=== PATIENT | male | born 1960 | race Caucasian/White ===

== ENCOUNTER 2020-09-20 09:51 | Outpatient (CLI) | payer BC, SELFPAY ==
[2020-09-20 10:47] LABS: Anion Gap 8 mmol/L (8-16); Blood Urea Nitrogen 16 mg/dL (9-20); Carbon Dioxide 27 mmol/L (22-30); Chloride 100 mmol/L (98-107); Estimated Glomerular Filt Rate > 60; Glucose 359 mg/dL (75-110); Potassium 4.2 mmol/L (3.4-5.0); Sodium 135 mmol/L (137-145)
== END 2020-09-20 09:52 | disposition home or self-care (01) ==
LOC: ANHLAB 09:55
PROVIDERS: PCP Family Medicine; Visit Provider Family Medicine
DX: E11.65 Type 2 diabetes mellitus with hyperglycemia (principal)
CPT/HCPCS: 36415; 80048

== ENCOUNTER → 2021-07-31 07:27 | Outpatient (CLI) | payer BC, SELFPAY ==
[2021-07-31 17:06] LABS: SARS-CoV-2 RNA PCR Negative
== END ==
PROVIDERS: PCP Family Medicine; Visit Provider Nurse Practitioner Family
DX: Z20.822 Contact with and (suspected) exposure to COVID-19 (principal); R00.2 Palpitations; R06.02 Shortness of breath
CPT/HCPCS: C9803; U0003; U0005

== ENCOUNTER 2021-07-31 08:31 | Outpatient (CLI) | payer BC, SELFPAY ==
--- NOTE | ~2021-07-31 | XR_ITS ---
EXAMINATION: XR chest 2V 07/31/2021 09:05 INDICATION: Left-sided chest pain and shortness of breath PROCEDURE: 2 view chest COMPARISON: 02/19/2009 FINDINGS: The lungs are clear. The cardiomediastinal silhouette is within normal limits. There are no pleural effusions. There is no pneumothorax suspected. IMPRESSION: 1: NO ACUTE CARDIOPULMONARY DISEASE. Reviewed, dictated and finalized at location A.
--- NOTE | 2021-07-31 08:41 | ECG_ITS ---
Measurements Intervals [place] Rate: 85 P: 73 AL: 175 QRS: 64 QRSD: 128 T: -1 QT: 390 QTc: 466 Interpretive Statements SINUS RHYTHM RIGHT AXIS DEVIATION RIGHT BUNDLE BRANCH BLOCK BASELINE ARTIFACT- I, III, AVR, AVL, AVF ABNORMAL ECG Electronically Signed On 07-31-2021 9:20:10 CDT by Nando Kc D.O.
== END 2021-07-31 08:32 | disposition home or self-care (01) ==
LOC: ANHCARD 08:34
PROVIDERS: PCP Family Medicine; Visit Provider Nurse Practitioner Family
DX: R06.02 Shortness of breath (principal); R00.2 Palpitations; I45.10 Unspecified right bundle-branch block
CPT/HCPCS: 71046; 93005

== ENCOUNTER 2022-02-18 13:40 | Outpatient (CLI) | payer BC, SELFPAY ==
--- NOTE | ~2022-02-18 | US_ITS ---
EXAMINATION: US abdomen complete EXAM DATE: 02/18/2022 14:20 INDICATION: R10.9 - Unspecified abdominal pain . TECHNIQUE: Multiple grayscale and Doppler images of the complete abdomen were obtained (by a technolo gist who performed the scan) and subsequently reviewed. There is no prior study for comparison. FINDINGS: The proximal aspect of the aorta which is visualized is normal in caliber. Mid and distal portions po laci visualized. Visualized portion IVC is patent. Pancreas is obscured by bowel gas. There is echogenic liver parenchyma, hepatic steatosis. There are no focal liver lesions identified. There is no evidence of intrahepatic biliary duct dilation. Portal venous flow was seen in the he patopedal, normal direction and has normal Doppler waveform. Common bile duct measures 4 mm, which is normal. The gallbladder wall measures 3-4 mm in thickness, w hich is considered mildly thickened. There is a calcified 1.7 cm stone in the dependent aspect of the gallbladder. There may be several smaller stones. Gallbladder only has mild distention. No sonograph ic evidence of pericholecystic fluid. Technologist performing exam reports patient did not demonst rate sonographic Florian's sign. Please note that this sign is less reliable in patients who have rec eived pain medication. Right kidney: There is normal contour and echogenicity. It measures 12.4 x 4.7 x 6.4 centimeters. There are no focal renal lesions identified. There is no hydronephrosis. Left kidney: There is normal contour and echogenicity. It measures 13.3 x 4.7 x 6.5 centimeters. T here are no focal renal lesions identified. There is no hydronephrosis. The spleen measures 13.0 x 6.6 centimeters which is upper limits of normal in size. IMPRESSION: 1. Cholelithiasis. Mild gallbladder wall thickening which is nonspecific given no sonographic Florian 's sign was demonstrated. 2. Hepatic steatosis. 3. Spleen upper limits of normal in size. Reviewed, dictated and finalized at location B. IMPRESSION: 1. Cholelithiasis. Mild gallbladder wall thickening which is nonspecific given no sonographic Florian's sign was demonstrated. 2. Hepatic steatosis. 3. Spleen upper limits of normal in size.
== END 2022-02-18 13:41 | disposition home or self-care (01) ==
LOC: ANHIMG 13:44
PROVIDERS: PCP Family Medicine; Visit Provider Nurse Practitioner Family
DX: R10.9 Unspecified abdominal pain (principal); K80.20 Calculus of gallbladder without cholecystitis without obstruction; K76.0 Fatty (change of) liver, not elsewhere classified
CPT/HCPCS: 76700

== ENCOUNTER 2022-02-27 12:46 | Outpatient (CLI) | payer BC, SELFPAY ==
[2022-02-27 14:28] LABS: Lithium < 0.2 mmol/L (0.6-1.2)
== END 2022-02-27 12:47 | disposition home or self-care (01) ==
PROVIDERS: Anesthesiology; PCP Family Medicine; Visit Provider Surgery
DX: Z01.818 Encounter for other preprocedural examination (principal); K80.20 Calculus of gallbladder without cholecystitis without obstruction
CPT/HCPCS: 36415; 80178; 86850; 86900; 86901

== ENCOUNTER 2022-03-02 01:04 | Day surgery (SDC) | payer BC, SELFPAY ==
[2022-02-27 12:03] VITALS: BMI 39.0
--- NOTE | 2022-02-27 12:10 | PC.NURSE ---
Report to the Outpatient Waiting Room, entrance under the green pavilion located off [facility], at time __1200 on date _03/02/22 . OR Time: _1400 . - You and your visitor will be asked a series of questions to screen for COVID 19 for your protection. - A mask is required within the hospital. Preoperative COVID Testing Requirements: No COVID Test needed if: (proof is required; if not received patient will have Rapid Test prior to entry) - Patient has received COVID Vaccine at least 14 days prior to procedure date or - Patient has positive COVID test result within last 90 days of surgery date. COVID Test needed if above criteria is not met If not COVID vaccinated a COVID test must be conducted within 72 hours of surgery and patient is asked to isolate self from time of testing until procedure. You will go to the [facility] for your COVID testing. The [facility] site is located at the corner of [address] [facility]. You will only be called if COVID results are positive and your surgeon may reschedule your elective surgery date. Patients may have clear liquids (water, carbonated beverages, clear teas, apple juice) until 3 hours prior to surgery with a maximum of 20 ounces. - No food from midnight until time of surgery - Infants may have breast milk until 4 hours before surgery, formula 6 hours prior to surgery. - Children will be allowed to drink immediately following surgery. If applicable, please bring a bottle or sippy cup to assist with drinking. Juice, water, soda, and popsicles are readily available. For infants on formula, please bring formula the day of surgery. Pacifiers are allowed. Take the following medications with a SIP of water the morning of surgery: ____HALF OF MORNING INSULIN DOSES, PANTOPRAZOL, NEVIBILOL, BUPROPION, INHALER IF NEEDED Medications to discontinue per physician ASA Date to take last dose____02/27/22 Please no make-up, nail yakut, hairspray, perfume, deodorant, or body powder the day of surgery. No jewelry (including any body piercings) or valuables the day of surgery, leave them at home. Please take a shower or bath the night before, or the morning of, surgery with an antibacterial soap. Wear comfortable, loose fitting clothing. Children are encouraged to wear pajamas. - Jewelry must be removed prior to entering the operating room. Rings and piercings that are not removed may be cut off. - The hospital will not accept responsibility for valuables. - Please leave all valuables, including medications, at home the day of surgery. If you are going home after surgery, a licensed van driver helper must drive you home. - NO public transportation without another adult. - We recommend that an adult stay with you for 24 hours following discharge. - We also recommend that you do not drive, make important decision, drink alcoholic beverages, or take any drugs that were not prescribed by your health care provider for at least 24 hours after your discharge time. For Pediatric surgeries, we recommend two adults accompany the child home (only one inside the building at this time). One visitor will be allowed to accompany the patient into the hospital. Patients visitor will be instructed to remain with patient at all times or leave the building. We will allow the visitor to come back to the postoperative area when patient is ready. Follow any additional instructions given to you from your surgeon. Telephone instructions given to __PATIENT and asked if any additional questions and then verbalized understanding. Patient advised to call surgeon office or pre surgery nurse liaison [phone] if any additional questions.
[2022-03-02] VITALS (8 sets, daily range): BP systolic 140–157; BP diastolic 70–90; PULSE 60–79; RESP 15–17; TEMP 36.3–36.6; O2SAT 95–100
--- NOTE | 2022-03-02 12:47 | WPDANESEPPF ---
Anes - Initial Pre Proc Eval Procedure: Operation Date: 03/02/22 14:00 Proposed Procedures p Laparoscopic Cholecystectomy, Possible Open - Herminio Welch DO Date/Time: 03/02/22 12:47 Surgeon: Herminio Welch DO Pre Op Diagnosis: Symptomatic Cholelithiasis Patient Data Age: 61 Gender: M Height: 1.75 m Weight: 120 kg Allergies Allergy/AdvReac Type Severity Reaction Status Date / Time levofloxacin AdvReac Intermediate Itching Verified 03/02/22 13:22 Home Medications Medication Instructions Recorded Confirmed Type aspirin 81 mg tablet,delayed 81 mg PO DAILY 09/08/19 03/02/22 History release flash glucose scanning reader #1 each 12/12/19 03/02/22 Rx benazepril 10 1 tablet PO DAILY #90 tablet 04/07/21 03/02/22 Rx mg-hydrochlorothiazide 12.5 mg tablet pen needle, diabetic 32 gauge x #200 ea 05/18/21 03/02/22 Rx 1/4 flash glucose sensor #2 each 05/21/21 03/02/22 Rx bupropion HCl 300 mg 24 hr tablet, 300 mg PO QAM #1 tablet 05/26/21 03/02/22 Rx extended release vilazodone 40 mg tablet 40 mg PO DAILY #1 tablet 05/26/21 03/02/22 Rx insulin lispro 200 unit/mL (3 mL) 20 unit SUB-Q TID #3 ml 07/29/21 03/02/22 Rx subcutaneous pen albuterol sulfate 90 mcg/actuation 2 inh INHALATION Q4H PRN #6.7 g 10/16/21 03/02/22 Rx aerosol inhaler insulin glargine 100 unit/mL (3 65 unit SUB-Q DAILY #20 syr 10/24/21 03/02/22 Rx mL) subcutaneous pen nebivolol 5 mg tablet 5 mg PO DAILY #90 tablet 01/29/22 03/02/22 Rx pantoprazole 40 mg tablet,delayed 40 mg PO QAM 56 Days #56 tablet 02/18/22 03/02/22 Rx release semaglutide 1 mg/dose (4 mg/3 mL) 1 mg SUBCUT WEEKLY #9 ml 02/25/22 03/02/22 Rx subcutaneous pen injector lithium carbonate 300 mg PO HS 02/27/22 03/02/22 History rosuvastatin 20 mg PO DAILY 02/27/22 03/02/22 History hydrocodone-acetaminophen 1 tablet PO Q4H PRN #10 tablet 03/02/22 Rx Patient hx anesthesia problems: none Family hx anesthesia problems: none Results Review: All pre-operative results and documents have been reviewed as part of the pre-operative evaluation. [facility] Past Medical History Medical History BMI 38.0-38.9,adult BMI 39.0-39.9,adult BMI 40.0-44.9, adult Cataracts, both eyes Depression Hyperlipidemia Hypertension Morbid obesity Type 2 diabetes mellitus with other specified complication (Unknown) Surgical History Surgical History H/O cataract extraction H/O inguinal hernia repair H/O umbilical hernia repair Family History Family History Mother Family history of diabetes mellitus in first degree relative Family history of thyroid disease Hypertension Grandparent Family history of lung cancer Diabetes mellitus Family history of lung disease Family history of heart disease in male family member before age 55 Father Hypertension Alzheimers disease Sibling No problems noted. Social History Social History Smoking status: Never smoker Second hand tobacco smoke exposure: Yes Alcohol intake: never Substance use: never Substance use type: does not use Living arrangements: with family Additional occupation/education comments: [employer] Gender identity (if verbalized by the patient): Male Anes - Eval Final PreProcedure Day of Procedure 03/02/22 12:47 Patient weight: obese Heart: regular rate and rhythm Lungs: clear to auscultation and normal air movement Airway: Mallampati scale class II Neurological: alert and oriented Last oral intake: >/= 8 hours ASA classification: III Emergent: no Anesthetic plan: proceed Anesthesia type and monitoring: general ETT and standard monitoring Results Review: All pre-operative results and documents have been reviewed as part of the pr
[2022-03-02] MEDS: LACTATED RINGERS 1,000 ML 30 ML IV CONT ×2 (13:00→14:43)
[2022-03-02] MEDS: ACETAMINOPHEN 500 MG TABLET 1000 MG PO (13:00)
[2022-03-02] MEDS: KETOROLAC 15 MG/ML VIAL (*BKC) IV PUSH (13:17)
[2022-03-02 13:19] LABS: Glucose Point of Care 106 mg/dl (65-105)
--- NOTE | 2022-03-02 13:28 | WPDHPUPDATE1 ---
History and Physical Update Update Date/Time: 03/02/22 13:28 History and Physical has been reviewed, including an updated exam of the patient. There are NO changes in the patient's condition. Risks, benefits, and alternatives have been discussed and questions answered. Patient agrees to proceed with procedure.
[2022-03-02] MEDS: ceFAZolin 3 GM/D5W 100 ML 100 ML IVPB (13:40)
--- NOTE | 2022-03-02 14:36 | W.PM.PROC2 ---
Procedure Note - Detailed Date of Procedure 03/02/22 Pre-op Diagnosis Symptomatic Cholelithiasis Post-op Diagnosis Same Procedure Performed Laparoscopic Cholecystectomy Surgeon Herminio Welch, DO Anesthesia General and Local (0.5% bupivacaine) Indications This is a 61-year-old man who presented with right upper quadrant abdominal pain nausea and vomiting for the past 3 weeks. The patient's symptoms were somewhat mild at 1st, but now he states he has symptoms after he eats anything. He had a gallbladder ultrasound which showed evidence of cholelithiasis with mild gallbladder wall thickening. Discussions were made with the patient about treatment options and decision was made to proceed with laparoscopic cholecystectomy, possible open. Findings Laparoscopic cholecystectomy was performed. The gallbladder had a small gallstone within it, but there was no evidence of pericholecystic adhesions. There was some fatty infiltration around the gallbladder wall but no significant gallbladder wall thickening. The cystic duct appeared normal in size. The gallbladder was removed and sent to the lab for pathology. Description of Procedure Procedure as well as risks, benefits, and alternatives were discussed with patient. Written consent was obtained and placed in chart prior to procedure. The patient was brought back to surgical suite. Patient was placed in supine position on operating table. Time-out was done to confirm patient and procedure. Patient was then intubated by the anesthesia department. Abdomen was prepped and draped in sterile fashion using chlorhexidine prep. 0.5% bupivacaine with epinephrine was infiltrated at each site of incision. 5 mm incision was made in the left upper quadrant and a 5 mm Optiview trocar was advanced through the abdominal layers under direct visualization. Once inside the abdominal cavity, carbon dioxide insufflation was used to created pneumoperitoneum. The camera was inserted the abdomen was inspected. No significant adhesions were identified in the supraumbilical region where a a port could be placed safely. A 5 millimeter incision was made superior to the umbilicus, and a 5 millimeter trocar was placed under direct visualization. The patient was placed in reverse Trendelenburg position and rotated slightly to the left. An 11 millimeter incision was made in the subxiphoid region, and an 11 millimeter trocar was inserted under direct visualization. Two 5 millimeter incisions were made in the right upper quadrant, and two 5 millimeter trocars were inserted under direct visualization. The gallbladder was identified and grasped at the fundus and retracted superiorly. It was then grasped at the infundibulum retracted laterally. Careful dissection around the neck of the gallbladder was performed using blunt dissection with a [place] grasper and hook electrocautery. The cystic duct was identified, and a window was created behind it. The cystic artery was also identified and a window was created behind it. The critical view of safety was identified, visualizing the cystic duct running directly into the neck of the gallbladder, and the cystic artery running directly into the wall of the gallbladder. A 5 millimeter clip filter plant operator was then used to place 2 clips proximally and 1 clip distally on both the cystic duct and cystic artery. They were then both transected using endoscopic scissors. Once safely away from the meño hepatitis, the gallbladder was dissected free from the liver bed using hook electrocautery. Hemostasis was achieved along the way. The gallbladder was removed completely and then removed through the subxiphoid port. The liver bed was then inspected. Hemostasis appeared adequate, and our clips appeared secure. The area was gently irrigated with sterile saline. No other abnormalities were seen. The patient was flattened out in bed, and 1 final inspection was made around the abdominal cavity. The subxiphoid por
[2022-03-02 14:54] LABS: Glucose Point of Care 126 mg/dl (65-105)
[2022-03-02] MEDS: ONDANSETRON INJ 4 MG/2 ML VIAL IV PUSH (14:59)
[2022-03-02] MEDS: SCOPOLAMINE 1.5 MG PATCH TRANSDERM (15:44)
[2022-03-02] MEDS: diphenhydrAMINE HCl INJ 50 MG/ML VIAL 25 MG IV PUSH (15:44)
== END 2022-03-02 16:59 | disposition home or self-care (01) ==
PROVIDERS: PCP Family Medicine; Visit Provider Surgery
PROC: 0FT44ZZ Resection of Gallbladder, Percutaneous Endoscopic Approach (ICD-10-PCS; CPT 47562; principal; 2022-03-02 14:00)
DX: K80.10 Calculus of gallbladder with chronic cholecystitis without obstruction (principal); R11.0 Nausea; R10.9 Unspecified abdominal pain; K76.0 Fatty (change of) liver, not elsewhere classified; F32.9 Major depressive disorder, single episode, unspecified; E78.5 Hyperlipidemia, unspecified; I10 Essential (primary) hypertension; E11.8 Type 2 diabetes mellitus with unspecified complications; Z79.4 Long term (current) use of insulin; Z79.82 Long term (current) use of aspirin; Z79.51 Long term (current) use of inhaled steroids; E66.9 Obesity, unspecified; Z68.37 Body mass index [BMI] 37.0-37.9, adult
CPT/HCPCS: 47562; 36415; 80178; 82948; 86850; 86900; 86901; 88304; A9270; J0690; J1100; J1200; J1885; J2405; J2704; J2710; J3010; J7030; J7120

== ENCOUNTER 2022-04-24 04:46 | Day surgery (SDC) | payer BC, SELFPAY ==
[2022-04-13 13:18] VITALS: BMI 38.4
--- NOTE | 2022-04-24 10:26 | WPDANESEPPF ---
Anes - Initial Pre Proc Eval Procedure: Operation Date: 04/24/22 13:00 Proposed Procedures p Screening Colonoscopy - Blake Heller MD Date/Time: 04/24/22 10:26 Surgeon: Blake Heller MD Pre Op Diagnosis: neoplasm screening Patient Data Age: 61 Gender: M Height: 1.75 m Weight: 118 kg Allergies Allergy/AdvReac Type Severity Reaction Status Date / Time levofloxacin AdvReac Intermediate Itching Verified 04/24/22 11:31 Home Medications Medication Instructions Recorded Confirmed Type aspirin 81 mg tablet,delayed 81 mg PO DAILY 09/08/19 04/13/22 History release (Adult Low Dose Aspirin) flash glucose scanning reader #1 ea 12/12/19 04/13/22 Rx (FreeStyle Leandro 14 Day [place]) benazepril 10 1 tablet PO DAILY #90 tabs 04/07/21 04/13/22 Rx mg-hydrochlorothiazide 12.5 mg tablet pen needle, diabetic 32 gauge x #200 ea 05/18/21 04/13/22 Rx 1/4 (BD Ultra-Fine Micro Pen Needle) bupropion HCl 300 mg 24 hr tablet, 300 mg PO QAM #1 tablet 05/26/21 04/13/22 Rx extended release (Wellbutrin XL) vilazodone 40 mg tablet (Viibryd) 40 mg PO DAILY #1 tablet 05/26/21 04/13/22 Rx nebivolol 5 mg tablet (Bystolic) 5 mg PO DAILY #90 tabs 01/29/22 04/13/22 Rx semaglutide 1 mg/dose (4 mg/3 mL) 1 mg (0.75 mL) subcut WEEKLY #9 mL 02/25/22 04/13/22 Rx subcutaneous pen injector (Ozempic) lithium carbonate 300 mg capsule 300 mg PO HS 02/27/22 04/13/22 History rosuvastatin 20 mg tablet 20 mg PO DAILY 02/27/22 04/13/22 History albuterol sulfate 90 mcg/actuation See Rx Instructions .Route 03/23/22 04/13/22 Rx aerosol inhaler .COMPLEX #51 grams pantoprazole 40 mg tablet,delayed 40 mg PO BID 8 weeks #112 tabs 03/30/22 04/13/22 Rx release flash glucose sensor (FreeStyle #2 ea 04/06/22 04/13/22 Rx Leandro 14 Day Sensor kit) sodium sul 1.479 gram-potas ch See Rx Instructions PO PER PKG DIR 04/10/22 04/13/22 Rx 0.188 gram-magnes sul 0.225 gram #24 tabs tablet (Sutab) insulin glargine 100 unit/mL (3 65 unit subcut BID 04/13/22 04/13/22 History mL) subcutaneous pen (Basaglar KwikPen U-100 Insulin) Patient hx anesthesia problems: none Family hx anesthesia problems: none Results Review: All pre-operative results and documents have been reviewed as part of the pre-operative evaluation. [facility] Past Medical History Medical History (Updated 04/24/22 @ 10:28 by Torey Michaels MD) BMI 38.0-38.9,adult BMI 39.0-39.9,adult BMI 40.0-44.9, adult Cataracts, both eyes Chronic GERD Depression H/O supraventricular tachycardia Hyperlipidemia Hypertension Morbid obesity Nausea CLIFF (obstructive sleep apnea) Type 2 diabetes mellitus with other specified complication (Unknown) Ulcer Surgical History Surgical History H/O cataract extraction H/O inguinal hernia repair H/O umbilical hernia repair Family History Family History Mother Family history of diabetes mellitus in first degree relative Family history of thyroid disease Hypertension Grandparent Family history of lung cancer Diabetes mellitus Family history of lung disease Family history of heart disease in male family member before age 55 Father Hypertension Alzheimers disease Sibling No problems noted. Social History Social History Smoking status: Never smoker Second hand tobacco smoke exposure: Yes Alcohol intake: never Substance use: never Substance use type: does not use Living arrangements: with family Additional occupation/education comments: [employer] Gender identity (if verbalized by the patient): Male Spiritual care concerns: No Anes - Eval Final PreProcedure Day of Procedure 04/24/22 10:26 Patient weight: obese Heart: regular rate and rhythm Lungs: clear to auscultation and normal air mo
[2022-04-24 11:32] VITALS: BP 144/73; PULSE 82; RESP 20; TEMP 36.4; O2SAT 98
[2022-04-24 11:44] LABS: Glucose Point of Care 221 mg/dl (65-105)
--- NOTE | 2022-04-24 11:53 | WPDHPUPDATE1 ---
History and Physical Update Update Date/Time: 04/24/22 11:53 History and Physical has been reviewed, including an updated exam of the patient. There are NO changes in the patient's condition. Risks, benefits, and alternatives have been discussed and questions answered. Patient agrees to proceed with procedure.
[2022-04-24] MEDS: LACTATED RINGERS 1,000 ML 150 ML IV CONT (12:30)
[2022-04-24 13:05] VITALS: BP 128/65; PULSE 77; RESP 20; O2SAT 97
[2022-04-24 13:15] VITALS: BP 136/78; PULSE 70; RESP 21; O2SAT 97
[2022-04-24 13:25] VITALS: BP 142/92; PULSE 72; RESP 21; O2SAT 98
== END 2022-04-24 13:45 | disposition home or self-care (01) ==
PROVIDERS: PCP Family Medicine; Visit Provider Internal Medicine Gastroenterology
PROC: 0DJD8ZZ Inspection of Lower Intestinal Tract, Via Natural or Artificial Opening Endoscopic (ICD-10-PCS; CPT 45378; principal; 2022-04-24 13:00)
DX: Z12.11 Encounter for screening for malignant neoplasm of colon (principal); D12.2 Benign neoplasm of ascending colon; K64.8 Other hemorrhoids; K57.30 Diverticulosis of large intestine without perforation or abscess without bleeding; R19.7 Diarrhea, unspecified; I10 Essential (primary) hypertension; E78.5 Hyperlipidemia, unspecified; E11.9 Type 2 diabetes mellitus without complications; G47.33 Obstructive sleep apnea (adult) (pediatric); K21.9 Gastro-esophageal reflux disease without esophagitis; F32.A Depression, unspecified; E66.9 Obesity, unspecified; Z68.37 Body mass index [BMI] 37.0-37.9, adult; Z79.82 Long term (current) use of aspirin; Z79.899 Other long term (current) drug therapy; Z79.51 Long term (current) use of inhaled steroids; Z79.4 Long term (current) use of insulin
CPT/HCPCS: 45385; 45380; 82948; 88305; J2704; J7120

== ENCOUNTER 2022-09-03 13:17 | Outpatient (CLI) | payer BC, SELFPAY ==
--- NOTE | ~2022-09-03 | US_ITS ---
US abdomen complete EXAMINATION: US Abdomen Complete INDICATION: Abdomen pain. PROCEDURE: Realtime High Resolution abdomen ultrasound. COMPARISON: Ultrasound dated 02/18/2022 FINDINGS: Gallbladder is surgically absent. Common bile duct measures 5 mm. Liver echotexture liver echotexture is increased, consistent with fatty infiltration.. Liver is enlar ged. Pancreas is not well visualized due to bowel gas. Pancreatic tail is obscured by bowel gas. Spl een is unremarkeable. Renal echotexture is within normal limits bilaterally without hydronephrosis, c ontour deforming mass or renal stone. Right kidney measures 12.5 cm. Left kidney measures 13.4 cm. Visualized aspects of the aorta and IVC are within normal limits. Portal vein is patent. No sonograph ic Florian's sign indicated by the technologist. IMPRESSION: 1: Hepatomegaly with fatty infiltration of the liver. Reviewed, dictated and finalized at location B.
[2022-09-03 12:42] LABS: Basophils Absolute Auto 0.1 K/mm3 (0.0-0.1); Basophils Percent Auto 0.7 % (0.2-1.2); Eosinophils Absolute Auto 0.3 K/mm3 (0-0.3); Eosinophils Percent Auto 3.9 % (0-4.4); Hematocrit 46.4 % (42.0-52.0); Hemoglobin 15.6 g/dL (14.0-18.0); Immature Granulocyte Absolute 0.02 K/mm3 (0.00-0.031); Immature Granulocyte Percent A 0.2 % (0-0.5); Lymphocytes Absolute Auto 1.93 K/mm3 (0.9-3.2); Lymphocytes Percent Auto 22.6 % (18.3-44.2); Mean Corpuscular HGB Conc 33.6 g/dl (32-36); Mean Corpuscular Volume 83.2 fl (80-100); Mean Platelet Volume 8.8 fl (7.4-10.4); Monocytes Absolute Auto 0.6 K/mm3 (0.1-0.6); Monocytes Percent Auto 7.5 % (2.6-8.5); Neutrophils Absolute Auto 5.6 K/mm3 (1.3-6.7); Neutrophils Percent Auto 65.1 % (45.5-73.1); Platelet Count Result 252 k/mm3 (150-375); Red Blood Count 5.58 M/mm3 (4.6-6.20); Red Cell Distribution Width 13.3 % (11.5-14.5); White Blood Count 8.5 K/mm3 (4.5-10.0)
[2022-09-03 12:53] LABS: Alanine Aminotransferase 23 U/L (6-50); Albumin Level 4.3 g/dL (3.5-5.1); Alkaline Phosphatase 122 U/L (38-126); Amylase 97 U/L (30-110); Anion Gap 10 mmol/L (8-16); Aspartate Amino Transferase 26 U/L (17-59); Bilirubin,Total 0.9 mg/dL (0.2-1.3); Blood Urea Nitrogen 14 mg/dL (9-20); Carbon Dioxide 25 mmol/L (22-30); Chloride 103 mmol/L (98-107); Estimated Glomerular Filt Rate > 60; Glucose 237 mg/dL (65-110); Lipase 505 U/L (23-300); Potassium 4.1 mmol/L (3.4-5.0); Sodium 138 mmol/L (137-145)
[2022-09-03 16:52] LABS: Hepatitis B Surface Antigen Negative (Negative)
[2022-09-03 16:57] LABS: HAV RESULT Negative (Negative); Hepatitis B Core IgM Result Negative (Negative)
[2022-09-03 17:09] LABS: Hepatitis C Virus Antibody Negative (Negative)
== END 2022-09-03 13:18 | disposition home or self-care (01) ==
PROVIDERS: PCP Family Medicine; Visit Provider Nurse Practitioner Family
DX: R10.9 Unspecified abdominal pain (principal); R11.0 Nausea; R16.0 Hepatomegaly, not elsewhere classified
CPT/HCPCS: 36415; 76700; 80053; 80074; 82150; 83690; 85025

== ENCOUNTER 2022-09-04 08:53 | Outpatient (CLI) | payer BC, SELFPAY ==
--- NOTE | ~2022-09-04 | CT_ITS ---
EXAMINATION: CT abdomen pelvis wo/w con DATE: 09/04/2022 09:22 INDICATION: Pancreatitis and hepatomegaly TECHNIQUE: Computed tomography (CT) of the abdomen was performed without intravenous contrast. CT of the abdomen was then performed in the arterial phase with a total of 100 cc mL Omnipaque [address] of the abdomen and pelvis was then obtained in the portal venous phase. The dose-leno gth product (DLP) was 3263.69 mGy-cm. Automated exposure control and iterative reconstruction [employer] were employed. COMPARISON: 09/11/2015 FINDINGS: Minimal dependent atelectasis is present in the lung bases. The heart size is normal. The g allbladder is surgically absent. The liver, spleen, pancreas, and right adrenal gland are normal. 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 Cysts of the right kidney measure up to 4 mm. T he left kidney is unremarkable. A diverticulum is noted at the junction of the second and third porti ons of the duodenum. No pathologically enlarged abdominal or pelvic lymph nodes are identified. There is no free intraperitoneal gas or evidence of bowel obstruction. Colonic diverticulosis is present w ithout evidence of diverticulitis. There is an umbilical hernia containing fat. There is mild lumbar spondylosis. IMPRESSION: 1. No CT correlate for the patient's symptoms. Reviewed, dictated and finalized at location A.
== END 2022-09-04 08:54 | disposition home or self-care (01) ==
PROVIDERS: PCP Family Medicine; Visit Provider Nurse Practitioner Family
DX: R10.9 Unspecified abdominal pain (principal); R74.8 Abnormal levels of other serum enzymes
CPT/HCPCS: 74178; Q9967

== ENCOUNTER 2023-01-21 11:19 | Outpatient (CLI) | payer BC, SELFPAY ==
--- NOTE | ~2023-01-21 | US_ITS ---
US abdomen limited INDICATION: Nausea. PROCEDURE: Realtime right upper abdominal ultrasound. COMPARISON: No prior studies for comparison. FINDINGS: The pancreas is normal without focal mass or pancreatic ductal dilation. Liver echotexture is mildly increased, consistent with fatty infiltration. No discrete hepatic mass. There is normal directional flow in the portal vein. Gallbladder is surgically absent. Common bile duct measures 4.7 mm. IMPRESSION: 1: Hepatic steatosis. Reviewed, dictated and finalized at location A. IMPRESSION: 1: Hepatic steatosis.
[2023-01-21 12:55] LABS: Basophils Absolute Auto 0.1 K/mm3 (0.0-0.1); Basophils Percent Auto 0.6 % (0.2-1.2); Eosinophils Absolute Auto 0.2 K/mm3 (0-0.3); Eosinophils Percent Auto 2.2 % (0-4.4); Hematocrit 48.9 % (42.0-52.0); Hemoglobin 16.8 g/dL (14.0-18.0); Immature Granulocyte Absolute 0.03 K/mm3 (0.00-0.031); Immature Granulocyte Percent A 0.3 % (0-0.5); Lymphocytes Absolute Auto 2.46 K/mm3 (0.9-3.2); Lymphocytes Percent Auto 25.6 % (18.3-44.2); Mean Corpuscular HGB Conc 34.4 g/dl (32-36); Mean Corpuscular Hemoglobin 28.2 pg (26-34); Mean Corpuscular Volume 82.2 fl (80-100); Mean Platelet Volume 8.5 fl (7.4-10.4); Monocytes Absolute Auto 0.7 K/mm3 (0.1-0.6); Monocytes Percent Auto 6.9 % (2.6-8.5); Neutrophils Absolute Auto 6.2 K/mm3 (1.3-6.7); Neutrophils Percent Auto 64.4 % (45.5-73.1); Platelet Count Result 254 k/mm3 (150-375); Red Blood Count 5.95 M/mm3 (4.6-6.20); Red Cell Distribution Width 13.6 % (11.5-14.5); White Blood Count 9.6 K/mm3 (4.5-10.0)
[2023-01-21 13:06] LABS: Alanine Aminotransferase 19 U/L (6-50); Albumin Level 4.6 g/dL (3.5-5.1); Alkaline Phosphatase 107 U/L (38-126); Amylase 91 U/L (30-110); Anion Gap 3 mmol/L (8-16); Aspartate Amino Transferase 19 U/L (17-59); Bilirubin,Total 1.1 mg/dL (0.2-1.3); Blood Urea Nitrogen 15 mg/dL (9-20); Calcium 9.7 mg/dL (8.4-10.2); Carbon Dioxide 29 mmol/L (22-30); Chloride 103 mmol/L (98-107); Estimated Glomerular Filt Rate > 60; Glucose 154 mg/dL (65-110); Lipase 239 U/L (23-300); Potassium 5.2 mmol/L (3.4-5.0); Sodium 135 mmol/L (137-145)
== END 2023-01-21 11:20 | disposition home or self-care (01) ==
PROVIDERS: PCP Family Medicine; Visit Provider Nurse Practitioner Family
DX: R11.0 Nausea (principal); R10.9 Unspecified abdominal pain; R74.8 Abnormal levels of other serum enzymes; K76.0 Fatty (change of) liver, not elsewhere classified
CPT/HCPCS: 36415; 76705; 80053; 82150; 83690; 85025

== ENCOUNTER 2024-03-10 08:51 | Outpatient (CLI) | payer BC, SELFPAY ==
--- NOTE | ~2024-03-10 | XR_ITS ---
XR shoulder LT min 2V 03/10/2024 09:12 Indication: Left shoulder pain Procedure: 4 views left shoulder Comparison: No prior studies for comparison. Findings: There is mild osteoarthritis of the acromioclavicular and glenohumeral joints. Small loose body inferior to the glenohumeral joint. No fracture or traumatic malalignment. Impression: 1: Mild polyarticular osteoarthritis. Reviewed, dictated and finalized at location B. Impression: 1: Mild polyarticular osteoarthritis.
--- NOTE | ~2024-03-10 | XR_ITS ---
XR hip BI 2V w AP pelvis 03/10/2024 09:13 Indication: Bilateral hip pain Procedure: AP pelvis and 2 views each hip Comparison: No prior studies for comparison. Findings: Mild osteoarthritis of the hips. Pelvic rings are intact. No fracture, subluxation or dislo cation. No significant soft tissue abnormality. No foreign bodies. Impression: 1: Mild osteoarthritis of the hips. Reviewed, dictated and finalized at location B. Impression: 1: Mild osteoarthritis of the hips.
== END 2024-03-10 08:52 | disposition home or self-care (01) ==
LOC: ANHIMG 08:53
PROVIDERS: PCP Family Medicine; Visit Provider Physician Assistant Medical
DX: M19.012 Primary osteoarthritis, left shoulder (principal); M16.0 Bilateral primary osteoarthritis of hip
CPT/HCPCS: 73030; 73521

== ENCOUNTER 2024-04-26 12:23 | Outpatient (CLI) | payer BC, SELFPAY ==
--- NOTE | ~2024-04-26 | MR_ITS ---
EXAMINATION: MR shoulder LT wo con DATE: 04/26/2024 13:47 INDICATION: Left shoulder pain TECHNIQUE: Magnetic resonance imaging (MRI) of the left shoulder was performed without intravenous co ntrast. Sequences included axial PD-weighted FS FSE, coronal oblique PD-weighted FS FSE, coronal obli que T2-weighted FS FSE, sagittal PD-weighted FS FSE, and sagittal T1-weighted SE. COMPARISON: None. FINDINGS: Coracoacromial arch: The acromion undersurface is curved in morphology (type II). The coracoacromial ligament is normal. M ild acromioclavicular osteoarthritis. Rotator cuff: The supraspinatus, infraspinatus and teres minor tendons are normal. The subscapularis tendon is norm al. Normal rotator cuff muscle bulk and signal. Biceps tendon, glenoid labrum and glenohumeral cartilage: Long head of the biceps tendon is normal. Glenoid labrum is normal. Glenohumeral cartilage is normal. Fluid: Physiologic amount of fluid in the glenohumeral joint and biceps tendon sheath. No loose osteochondr al bodies. No abnormal fluid signal in the subacromial/subdeltoid bursa to suggest bursitis. Bones/other: Normal marrow signal with no edema, fracture or abnormal marrow replacing process. There is thickenin g and mild increased signal of the midportion of the inferior glenohumeral ligament which could be du e to partial tear but could also be seen in the setting of adhesive capsulitis. Thickened intermediat e signal soft tissue replacing the normal T1 hyperintense fat signal at the rotator cuff interval whi ch can also be seen with adhesive capsulitis. IMPRESSION: 1. Thickened soft tissue at the rotator cuff interval and thickening and mild increased signal of the inferior glenoid humeral ligaments anteroinferior joint capsule, both findings which can be seen in the setting of adhesive capsulitis which is ultimately a clinical diagnosis. Reviewed, dictated and finalized at location A. IMPRESSION: 1. Thickened soft tissue at the rotator cuff interval and thickening and mild i ncreased signal of the inferior glenoid humeral ligaments anteroinferior joint capsule, both findings which can be seen in the setting of adhesive capsulitis which is ultimately a clinical diagnosis.
== END 2024-04-26 12:24 | disposition home or self-care (01) ==
PROVIDERS: PCP Family Medicine; Visit Provider Nurse Practitioner Family
DX: M75.02 Adhesive capsulitis of left shoulder (principal)
CPT/HCPCS: 73221

== ENCOUNTER 2024-06-29 09:50 | Outpatient (CLI) | payer BC, SELFPAY ==
--- NOTE | 2024-07-24 10:50 | WPDSLEEPSTUD ---
Sleep Study Date of Study: 06/29/24 Ordering Provider: PARISH Borja Interpreting Physician: Rachael Sorensen DO Sleep Study Type: Split Polysomnogram Height: 1.75 m Weight: 118.529 kg Body Mass Index: 38.5 Neck Circumference (inches): 20.5 [place]: 18 Reason for Sleep Study Snoring, daytime hypersomnia Sleep History The patient is a 63-year-old male that had a sleep study ordered by the pulmonary group for evaluation of sleep. The patient occasionally awakens from sleep short of breath. He frequently awakens at night with heartburn, belching or. He constantly snores loudly enough others complain. He frequently has trouble sleeping when he has a cold. He occasionally wakes up gasping for air throughout the night. He constantly has breathing problems at night observed by himself or others. He denies sweating excessively at night. He denies having heart palpitations or irregular heartbeats during the night. He frequently falls asleep during the day but never while driving. He occasionally experiences loss of muscle tone when extremely emotional. He rarely has trouble at school or work due to sleepiness. He denies feeling unable to move while waking up or falling asleep. He occasionally experiences vivid dreamlike scenes upon awakening or falling asleep. He denies feeling afraid of going to sleep. He denies having nightmares. He occasionally remembers his dreams. He constantly has thoughts racing through his mind. He frequently feels sad, depressed and anxious. He denies having muscular tension. He occasionally notices parts of his body jerk. He denies kicking during the night. He denies having crawling and aching feelings in his legs and denies having leg pain during the night. He denies grinding his teeth during sleep and denies awakening with morning jaw pain. He denies being bothered by pain during the day and denies being awakened by pain during the night. He denies waking up feeling stiff in the morning. He denies waking up with sore or achy muscles. He denies waking up with pain in the neck, spine and other joints. He goes to bed at 9:00 p.m. on both weekdays and weekends. He is able to fall asleep immediately. He wakes up 2-3 times throughout the night to urinate and is able to fall back asleep immediately. He wakes up at 6:00 a.m. on both weekdays and weekends. He typically gets 5-6 hours of sleep per night. He does not stay in bed after waking up in the morning. He currently lives with his son. He denies consuming any caffeinated beverages within 2 hours of bedtime. He denies engaging in physical exercise before bedtime. He will watch television before falling asleep. He denies taking naps in afternoon or the evening. He denies consuming any caffeinated beverages throughout the day. He denies tobacco, alcohol and recreational drug use. [facility] Past Medical History Medical History BMI over 35 Bronchitis Cataracts, both eyes Cholecystectomy planned Chronic GERD Colonoscopy planned Cough Depression H/O supraventricular tachycardia Hyperlipidemia Hypertension Morbid obesity Nausea CLIFF (obstructive sleep apnea) Type 2 diabetes mellitus with other specified complication (Unknown) Ulcer Surgical History Surgical History H/O cataract extraction H/O inguinal hernia repair H/O umbilical hernia repair Family History Family History Mother Family history of diabetes mellitus in first degree relative Family history of thyroid disease Hypertension Grandparent Family history of lung cancer Diabetes mellitus Family history of lung disease Family history of heart disease in male family member before age 55 Father Hypertension Alzheimers disease Dementia Sibling No problems noted. Social H
[2024-07-24 10:57] VITALS: BMI 38.5
== END 2024-06-30 07:49 | disposition home or self-care (01) ==
PROVIDERS: PCP Family Medicine; Visit Provider Physician Assistant
DX: G47.33 Obstructive sleep apnea (adult) (pediatric) (principal)
CPT/HCPCS: 95811

== ENCOUNTER 2024-07-04 08:00 | Outpatient (RCR) | payer BC, SELFPAY ==
--- NOTE | 2024-04-06 08:17 | PTOPEVAL1 ---
Assessment and note entered by Miguel Garner Evaluation Information Assessment Status Evaluation Diagnosis left shoulder pain Onset 03/07/24 Subjective Information Pt. reports he developed left shoulder pain about 1 month ago. He reports that he tripped while walking in a parking lot. He did not recall exactly how he fell, but the pain developed a couple of days after the fall. He notices pain in the left shoulder with pulling up his pants, reaching overhead and reaching to wash his hair. 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 He is right hand dominant. He reports that he cannot lay on the left side due to pain. He has undergone x-ray which revealed OA and a small loose body at the left shoulder. He states that his goal for therapy is to reduce his left shoulder pain and improve his shoulder mobility. Reported Pain Level Pain Score 8: Self Report Assessment PT Clinical Summary Pt. is a 63 year old male who enters the clinic with left shoulder pain after a fall. Pt. presents with indication of a left rotator cuff syndrome. He presents with impaired left shoulder ROM in all planes, impaired left shoulder strength and pain. Continued skilled PT is indicated in order to improve these areas to allow the pt. to establish improved left u.e. function for improved comfort and efficiency with IADL's. Plan of Care Interventions Electrical Stimulation,Hot Pack/Cold Pack,Manual Therapy,Neuro Re-education,Patient/Caregiver Educati,Therapeutic Activities,Therapeutic Exercise PT Services Indicated Yes Treatment Frequency and 2x/week x 10 visits Duration These treatments will address the objective and functional deficits as defined above. The patient will be advanced safely and appropriately in order for the patient to progress towards his/her prior level of function. Additional exercises will be introduced and as well as a comprehensive home exercise program upon discharge, if needed, ?to ensure carryover of functional gains achieved in the clinic. This treatment plan has been reviewed and agreement upon by the patient.
--- NOTE | 2024-04-06 08:21 | OPREHPOC ---
Outpatient Therapy Plan of Care This is a Multidisciplinary Plan of Care that may contain components documented by all disciplines (PT, OT, and ST.) PT Problem 1 PT Problem #1 Knowledge Deficit PT Goal 1 Goal Pt. will be independent with a HEP addressing shoulder mobility. Target Visit 2 PT Problem 2 PT Problem #2 Impaired Range of Motion PT Goal 1 Goal Pt. will achieve 160 degrees active left shoulder flexion in sitting. Pt. will demonstrate ability to reach to the CT junction with left shoulder ER for ease of grooming. Pt. will demonstrate ability to reach to the thoracolumbar junction with left shoulder IR for ease of dressing. Target Visit 10 PT Problem 3 PT Problem #3 Impaired Strength PT Goal 1 Goal Pt. will present with 4+/5 gross proximal left u.e . strength Pt. will demonstrate ability to lift 5# object overhead with the left u.e. for 10 reps Target Visit 10 PT Problem 4 PT Problem #4 Impaired Functional Mobil PT Goal 1 Goal Pt. will present with less than 20% limitation with the Quick DASH indicating overall improved function. Target Visit 10
--- NOTE | 2024-05-12 09:40 | PCPTNOTE ---
pt did not show for today's reevaluation appt. Called him--he forgot the appt due to holiday. Stated he has ortho appt 05-18-24; will see ortho and discuss if need more PT or not. Instructed him to get a new referral from ortho. And call for appt to resume PT.
--- NOTE | 2024-06-02 16:29 | PTOPPROG ---
Assessment and note entered by Kassie Broderick, PT Re-Eval Information Assessment Status Progress Diagnosis left shoulder pain Onset 03/07/24 Subjective Information Pt reports he received cortisone shot last 05/18. He is feeling better pain-ludwig. However, continue to have limitations and difficulty with reaching overhead cabinets, putting clothes on and even getting up from the bed at times. He wants to continue receiving therapy to help with movement. Assessment PT Clinical Summary Pt demos some progress with mobility and pain levels. Recently received cortisone injection, however, he cont to experience limited mobility at this time and weakness. He wanted to continue with therapy and work towards the already established goals. Plan of Care Interventions Electrical Stimulation,Hot Pack/Cold Pack,Manual Therapy,Neuro Re-education,Patient/Caregiver Education,Therapeutic Activities,Therapeutic Exercise,Ultrasound PT Services Indicated Yes Treatment Frequency and 2x/wk x 10 visits Duration These treatments will address the objective and functional deficits as defined above. The patient will be advanced safely and appropriately in order for the patient to progress towards his/her prior level of function. Additional exercises will be introduced and as well as a comprehensive home exercise program upon discharge, if needed, ?to ensure carryover of functional gains achieved in the clinic. This treatment plan has been reviewed and agreement upon by the patient.
--- NOTE | 2024-06-29 13:35 | PCPTNOTE ---
Pt no showed visit today forgetting appt due to work issues and rescheduled for tomorrow.
--- NOTE | 2024-07-18 09:05 | PCPTNOTE ---
This treatment is being continued on visit number [id number] Please see documentation on both accounts to view progress. Completed interventions, outcomes, and problems have been marked as Inactive to facilitate the copying of the Care plan routine for recurring accounts.
--- NOTE | 2024-08-14 15:19 | PCPTNOTE ---
PHYSICAL THERAPY DISCHARGE FREDDY Cooper had the PT reassessment/progress report dated 07-18-24. He has not returned for PT treatment under that account number, due to referral to Dr Flores and having surgery on his shoulder. Discharge PT from this account number. Refer to the progress report for his status at the last session.
== END 2024-07-06 23:59 | disposition home or self-care (01) ==
LOC: ANHPT 08:00
PROVIDERS: PCP Family Medicine; Visit Provider Physician Assistant Medical
DX: M25.512 Pain in left shoulder (principal)
CPT/HCPCS: 97014; 97035; 97110; 97140; 97161; 97530; 97750; G0283

== ENCOUNTER 2024-07-18 14:30 | Outpatient (RCR) | payer BC, SELFPAY ==
--- NOTE | 2024-07-12 13:07 | PCPTNOTE ---
pt did not show for today's appt. Called him-- he stated days off due to the holiday. Reminded him of next appt and it is a reeval appt.
--- NOTE | 2024-07-18 09:06 | PCPTNOTE ---
This treatment is being continued from visit number [id number]. Please see documentation on both accounts to view progress. Completed interventions, outcomes, and problems have been marked as Inactive to facilitate the copying of the Care plan routine for recurring accounts.
[2024-07-18 14:30] VITALS: BP_SYST 110
--- NOTE | 2024-07-18 15:23 | OPREHPOC ---
Outpatient Therapy Plan of Care This is a Multidisciplinary Plan of Care that may contain components documented by all disciplines (PT, OT, and ST.) PT Problem 1 PT Problem #1 Knowledge Deficit PT Goal 1 Goal / Goal Update Pt. will be independent with a HEP addressing shoulder mobility. Target Visit 10 Progress Met PT Goal 2 Goal / Goal Update 07-18-24 progress/ refer to 06-02-24 progress note for goals met goal continue to progress education and HEP Target Visit 22 PT Problem 2 PT Problem #2 Impaired Range of Motion PT Goal 1 Goal / Goal Update Pt. will achieve 160 degrees active left shoulder flexion in sitting. Pt. will demonstrate ability to reach to the CT junction with left shoulder ER for ease of grooming. Pt. will demonstrate ability to reach to the thoracolumbar junction with left shoulder IR for ease of dressing. Target Visit 10 Progress Partially Met PT Goal 2 Goal / Goal Update 07-18-24 progress/ refer to 06-02-24 progress note for goals goals not met for ROM: NEW GOALS: active L shoulder ROM in standing 1* flexion to 140' 2* IR- reach behind back, palm to waist Target Visit 22 PT Problem 3 PT Problem #3 Impaired Strength PT Goal 1 Goal / Goal Update Pt. will present with 4+/5 gross proximal left u.e . strength Pt. will demonstrate ability to lift 5# object overhead with the left u.e. for 10 reps Target Visit 10 Progress Not Met PT Goal 2 Goal / Goal Update 07-18-24 progress/ refer to 06-02-24 progress note for goals goals not met NEW GOALS: L shoulder in standin reps 1* flexion to 90' with 4# hand wt 2* abduction to 90' with 3# hand wt Target Visit 22 PT Problem 4 PT Problem #4 Impaired Functional Mobil PT Goal 1 Goal / Goal Update Pt. will present with less than 20% limitation with the Quick DASH indicating overall improved function. Target Visit 10 Progress Not Met PT Goal 2 Goal / Goal Update 07-18-24 progress/ refer to 06-02-24 progress note for goals goal not met, improved to 39% continue towards goal to 20% limitation Target Visit
--- NOTE | 2024-07-18 15:23 | PTOPPROG ---
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 He did not show for 2 appointments. Compared to the last progress report: pain now 3- 5/10; self assessment with Quick DASH rating from 43 to 39% limitation in activty level; L shoulder ROM: active/passive: flexion 115/145; abduction 100/110; standing IR- reach to back, palm to butt/ ER reach palm to back of head. most pain reported with IR motion. Strength: with 2# hand weight to 90' for flexion and abduction x 5 reps. The goals were partially met. Continue PT treatment for L shoulder adhesive capsulitis. Plan of Care Interventions Electrical Stimulation,Hot Pack/Cold Pack,Manual Therapy,Patient/Caregiver Education,Therapeutic Activities,Therapeutic Exercise,Ultrasound,Other Other Interventions taping PT Services Indicated Yes Treatment Frequency and 1-2x/wk for 6 visits Duration These treatments will address the objective and functional deficits as defined above. The patient will be advanced safely and appropriately in order for the patient to progress towards his/her prior level of function. Additional exercises will be introduced and as well as a comprehensive home exercise program upon discharge, if needed, ?to ensure carryover of functional gains achieved in the clinic. This treatment plan has been reviewed and agreement upon by the patient.
--- NOTE | 2024-10-03 09:24 | PTOPDC ---
Assessment and note entered by Jackie Andrade, PT Discharge Report Assessment Status Discharge - Pt Not Present Diagnosis left shoulder pain Onset 03/07/24 Subjective Information pt was not seen this date. Assessment PT Clinical Summary Mr. Cristobal has not returned since the Jul 18 progress report. Refer to that report for his status. The goals were not addressed. Discharge PT due to pt stopped attending. Plan of Care PT Services Indicated No
== END 2024-10-03 13:26 | disposition home or self-care (01) ==
LOC: ANHPT 14:30
PROVIDERS: PCP Family Medicine; Visit Provider Physician Assistant Medical
DX: M25.512 Pain in left shoulder (principal)
CPT/HCPCS: 97014; 97110; 97140; G0283

== ENCOUNTER 2024-07-28 13:18 | Outpatient (CLI) | payer BC, SELFPAY ==
--- NOTE | 2024-07-28 15:23 | ECG_ITS ---
Test Date: 2024-07-28 15:31:56 Measurements Intervals [place] Rate: 68 P: 31 ME: 201 QRS: 49 QRSD: 145 T: 29 QT: 404 QTc: 430 Interpretive Statements SINUS RHYTHM BORDERLINE AV CONDUCTION DELAY RIGHT BUNDLE BRANCH BLOCK CONSIDER INFERIOR INFARCT, AGE INDETERMINATE BASELINE ARTIFACT- I, II, III, AVR, AVL, AVF, V1-V6 ABNORMAL ECG No previous ECG available for comparison Electronically Signed On 07-28-2024 18:59:12 CDT by Nando Kc D.O.
[2024-07-28 16:13] LABS: Anion Gap 13 mmol/L (4-12); Blood Urea Nitrogen 14 mg/dL (9-20); Calcium 9.4 mg/dL (8.4-10.2); Carbon Dioxide 24 mmol/L (22-30); Chloride 102 mmol/L (98-107); Estimated Glomerular Filt Rate > 60; Glucose 146 mg/dL (65-110); Potassium 3.7 mmol/L (3.4-5.0); Sodium 139 mmol/L (137-145)
== END 2024-07-28 13:19 | disposition home or self-care (01) ==
PROVIDERS: Anesthesiology; PCP Family Medicine; Visit Provider Orthopaedic Surgery
DX: E11.9 Type 2 diabetes mellitus without complications (principal); I10 Essential (primary) hypertension; I45.9 Conduction disorder, unspecified; I45.10 Unspecified right bundle-branch block
CPT/HCPCS: 36415; 80048; 93005

== ENCOUNTER 2024-08-02 01:52 | Day surgery (SDC) | payer BC, SELFPAY ==
[2024-07-27 12:57] VITALS: BMI 38.5
--- NOTE | 2024-07-27 13:01 | PC.NURSE ---
Report to the Outpatient Waiting Room, entrance under the green pavilion located off [facility], at time _0830_ on date _[id number]_. Planned Procedure Time: _1030_.? Time changes happen often and if your time is changed the preop area will call you the afternoon before. - You and your visitor will be asked to self-screen and do not enter if you have any COVID symptoms. Please call surgeon if you need to reschedule. - A mask is optional within the hospital at this time. Patients may have clear liquids (water, carbonated beverages, clear teas, apple juice) until 3 hours prior to surgery with a maximum of 20 ounces. - No food from midnight until time of surgery and no smoking Take only the following medications with a SIP of water on the morning of surgery: ____Nebivolol DO NOT STOP ANY OF YOUR OTHER PRESCRIPTION MEDICATIONS PRIOR TO SURGERY EXCEPT THE FOLLOWING Medications to discontinue per physician ____None Hold Meloxicam only if told by Dr Flores's office. No insulin morning of surgery. Please no make-up, nail burundian, hairspray, perfume, deodorant, or body powder the day of surgery.? No jewelry (including any body piercings) or valuables the day of surgery, leave them at home.? Please take a shower or bath the night before, or the morning of, surgery with an antibacterial soap.? Wear comfortable, loose fitting clothing.? . - Jewelry must be removed prior to entering the operating room.? Rings and piercings that are not removed may be cut off. - The hospital will not accept responsibility for valuables.? - Please leave all valuables, including medications, at home the day of surgery. If you are going home after surgery, a licensed medical driver must drive you home.? - NO public transportation without another adult if you receive anesthesia. - We recommend that an adult stay with you for 24 hours following discharge. - We also recommend that you do not drive, make important decision, drink alcoholic beverages, or take any drugs that were not prescribed by your health care provider for at least 24 hours after your discharge time. Follow any additional instructions given to you from your surgeon. Telephone instructions given to __Richard__and asked if any additional questions and then verbalized understanding. Patient advised to call surgeon office or pre surgery nurse liaison [phone] if any additional questions.
[2024-08-02] VITALS (8 sets, daily range): BP systolic 124–183; BP diastolic 63–92; PULSE 70–80; RESP 14–20; TEMP 36.4–37.6; O2SAT 95–99
--- NOTE | 2024-08-02 07:21 | WPDHPUPDATE1 ---
History and Physical Update Update Date/Time: 08/02/24 07:21 History and Physical has been reviewed, including an updated exam of the patient. There are NO changes in the patient's condition. Risks, benefits, and alternatives have been discussed and questions answered. Patient agrees to proceed with procedure.
[2024-08-02] MEDS: CELECOXIB 200 MG CAPSULE PO (08:48)
[2024-08-02] MEDS: ACETAMINOPHEN 500 MG TABLET 1000 MG PO (08:48)
[2024-08-02] MEDS: LACTATED RINGERS 1,000 ML 30 ML IV CONT (09:00)
[2024-08-02 09:04] LABS: Glucose Point of Care 202 mg/dl (65-105)
--- NOTE | 2024-08-02 10:08 | WPDANESEPPF ---
Anes - Initial Pre Proc Eval Procedure: Operation Date: 08/02/24 10:30 Proposed Procedures p Left Shoulder Manipulation Under Anesthesia and Cortisone Injection - Neil Flores MD Date/Time: 08/02/24 10:08 Surgeon: Neil Flores MD Pre Op Diagnosis: Left Shoulder adhesive capsulitis Patient Data Age: 63 Gender: M Height: 1.75 m Weight: 118.3 kg Last Vital Signs Temp 36.4 C 08/02/24 09:19 Pulse 80 08/02/24 09:19 Resp 16 08/02/24 09:19 BP 124/69 08/02/24 09:19 Pulse Ox 98 08/02/24 09:19 O2 Del Method Room Air 08/02/24 09:19 Allergies Allergy/AdvReac Type Severity Reaction Status Date / Time levofloxacin AdvReac Intermediate Itching Verified 08/02/24 08:45 Home Medications Medication Instructions Recorded Confirmed Type aspirin 81 mg tablet,delayed 81 mg PO DAILY 09/08/19 08/02/24 History release (Adult Low Dose Aspirin) ondansetron 8 mg disintegrating 8 mg PO Q8H PRN nausea and 09/04/22 07/27/24 Rx tablet vomiting #30 tabs pen needle, diabetic 32 gauge x #200 ea 05/24/23 07/27/24 Rx 1/4 (BD Ultra-Fine Micro Pen Needle) blood-glucose transmitter (Dexcom #1 ea 10/30/23 07/27/24 Rx G6 Transmitter device) blood-glucose meter,continuous #1 ea 01/14/24 07/27/24 Rx (Dexcom G6 Professor Of Law) blood-glucose sensor (Dexcom G6 #6 ea 01/14/24 07/27/24 Rx Sensor device) albuterol sulfate 90 mcg/actuation See Rx Instructions .Route 01/24/24 08/02/24 Rx aerosol inhaler .COMPLEX #51 grams benazepril 10 1 tablet PO DAILY #90 tabs 01/24/24 08/02/24 Rx mg-hydrochlorothiazide 12.5 mg tablet dapagliflozin propanediol 10 mg 10 mg PO QAM #90 tabs 03/20/24 08/02/24 Rx tablet (Farxiga) glucagon 1 mg/0.2 mL subcutaneous 1 mg (0.2 mL) subcut ONCE #0.4 mL 05/10/24 08/02/24 Rx auto-injector (Gvoke HypoPen 2-Pack) glucose 4 gram chewable tablet 4 g PO Q15M PRN hypoglycemia #360 05/10/24 07/27/24 Rx tabs cholecalciferol (vitamin D3) 1,250 1,250 mcg PO WEEKLY #12 caps 05/15/24 08/02/24 Rx mcg (50,000 unit) capsule rosuvastatin 40 mg tablet (Crestor) 40 mg PO DAILY #90 tabs 05/15/24 08/02/24 Rx nebivolol 5 mg tablet (Bystolic) 5 mg PO DAILY #90 tabs 05/22/24 08/02/24 Rx pantoprazole 40 mg tablet,delayed 40 mg PO BID 8 weeks #112 tabs 05/22/24 08/02/24 Rx release insulin glargine 100 unit/mL (3 65 unit (0.65 mL) subcut BID #15 mL 06/11/24 08/02/24 Rx mL) subcutaneous pen (Lantus Solostar U-100 Insulin) insulin aspart U-100 100 unit/mL See Rx Instructions .Route 06/15/24 08/02/24 Rx (3 mL) subcutaneous pen (Novolog .COMPLEX #15 mL FlexPen U-100 Insulin aspart) meloxicam 15 mg tablet 15 mg PO DAILY #30 tabs 07/06/24 08/02/24 Rx tirzepatide 5 mg/0.5 mL See Rx Instructions .Route 08/01/24 Rx subcutaneous pen injector .COMPLEX #6 mL (Mounjaro) hydrocodone 5 mg-acetaminophen 325 1 tablet PO Q12H PRN pain #30 tabs 08/02/24 Rx mg tablet Laboratory Tests 08/02/24 09:02 POC Capillary Glucose 202 H mg/dl (65-105) Patient hx anesthesia problems: none Family hx anesthesia problems: none Results Review: All pre-operative results and documents have been reviewed as part of the pre-operative evaluation. [facility] Past Medical History Medical History BMI over 35 Bronchitis Cataracts, both eyes Cholecystectomy planned Chronic GERD Colonoscopy planned Cough Depression H/O supraventricular tachycardia Hyperlipidemia Hypertension Morbid obesity Nausea CLIFF (obstructive sleep apnea) Type 2 diabetes mellitus with other specified complication (Unknown) Ulcer Surgical History Surgical History H/O cataract extraction H/O inguinal hernia repair H/O umbilical hernia repair Family History Family History Mother Family history of diabetes mellitus in first degr
[2024-08-02] MEDS: BUPivacaine HCL 0.5% PF 30 ML VIAL 5 ML INFILTRATE (11:05)
[2024-08-02] MEDS: methylPREDNISolone ACETATE 80 MG/ML VIAL IM (11:05)
--- NOTE | 2024-08-02 11:08 | W.PM.PROC2 ---
Procedure Note - Detailed Date of Procedure 08/02/24 Pre-op Diagnosis Left Shoulder adhesive capsulitis Post-op Diagnosis Same Procedure Performed FR[place], INJECTION LEFT SHOULDER Surgeon Neil Flores MD Anesthesia General Description of Procedure THE PATIENT WAS TAKEN TO THE OPERATING ROOM AND PLACED UNDER GENERAL ANESTHESIA. ONCE HE WAS CHEMICALLY PARALYZED THE LEFT SHOULDER WAS MANIPULATED UNTIL MOTION WAS ACHIEVED IN ALL PLANES. NEXT THE LEFT SHOULDER WAS PREPPED AND DRAPED STERILELY. DEPO MEDROL 80 MG X 1 CC AND MARCAINE 0.5% 5 CC WERE INJECTED IN TO THE GLENO HUMERAL JOINT. THE PATIENT WAS SENT TO THE RECOVERY ROOM ONCE GENERAL ANESTHESIA WAS REVERSED, IN STABLE CONDITION. Estimated Blood Loss 0 Complications No immediate complications Condition Stable Disposition PACU
[2024-08-02] MEDS: fentaNYL CITRATE INJ (*CRX) 100 MCG/2 ML VIAL 25 MCG IV PUSH ×4 (11:36→12:00)
[2024-08-02] MEDS: KETOROLAC 30 MG/ML VIAL (*BKC) IV PUSH (11:46)
[2024-08-02 12:01] LABS: Glucose Point of Care 149 mg/dl (65-105)
[2024-08-02] MEDS: oxyCODONE HCL (*CRX) 5 MG TAB IR PO (12:29)
--- NOTE | 2024-08-02 13:07 | SUR.PHASEII ---
Per Dr Campos patient okay to d/c with elevated BP, just have patient take JOHANNA inhibitor when he gets home.
== END 2024-08-02 13:19 | disposition home or self-care (01) ==
PROVIDERS: PCP Family Medicine; Visit Provider Orthopaedic Surgery
PROC: (CPT 23700; principal; 2024-08-02 10:30)
DX: M75.02 Adhesive capsulitis of left shoulder (principal); I10 Essential (primary) hypertension; E78.5 Hyperlipidemia, unspecified; E11.9 Type 2 diabetes mellitus without complications; G47.33 Obstructive sleep apnea (adult) (pediatric); K21.9 Gastro-esophageal reflux disease without esophagitis; F32.A Depression, unspecified; E66.9 Obesity, unspecified; Z68.38 Body mass index [BMI] 38.0-38.9, adult; Z79.82 Long term (current) use of aspirin; Z79.51 Long term (current) use of inhaled steroids; Z79.84 Long term (current) use of oral hypoglycemic drugs; Z79.4 Long term (current) use of insulin; Z79.85 Long-term (current) use of injectable non-insulin antidiabetic drugs
CPT/HCPCS: 23700; 82948; A9270; J1010; J1100; J1885; J2250; J2405; J2704; J3010; J7120

== ENCOUNTER 2024-08-07 08:15 | Outpatient (RCR) | payer BC, SELFPAY ==
--- NOTE | 2024-08-03 09:46 | OPREHPOC ---
Outpatient Therapy Plan of Care This is a Multidisciplinary Plan of Care that may contain components documented by all disciplines (PT, OT, and ST.) PT Problem 1 PT Problem #1 Knowledge Deficit PT Goal 1 Goal / Goal Update Mitchell with HEP for shoulder stretching and strengthening Target Visit 4 PT Problem 2 PT Problem #2 Impaired Range of Motion PT Goal 1 Goal / Goal Update Patient will achieve 175 degrees of left shoulder flexion active ROM to improve active reach and shoulder function for terminologist reaching and self care activity Target Visit 10 PT Goal 2 Goal / Goal Update Patient will achieve 85 degrees of left shoulder external rotation active ROM to improve self care and capsular mobility Target Visit 10 PT Problem 3 PT Problem #3 Impaired Strength PT Goal 1 Goal / Goal Update Improve left shoulder external rotation strength to 4+/5 to improve shoulder stability for ADL and reaching activity Target Visit 10 PT Goal 2 Goal / Goal Update Improve L shoulder flexion strength to 4+/5 to improve object lifting and manipulation for gross ADL performance and home care Target Visit 10
--- NOTE | 2024-08-03 09:46 | PTOPEVAL1 ---
Assessment and note entered by Seth Watson, PT Evaluation Information Assessment Status Evaluation Diagnosis Left shoulder pain, Manipulation under anesthesia Onset 08/02/24 Subjective Information Reports that he underwent closed manipulation yesterday. He is sore today but was able to achieve full flexion under anesthesia. Pain today is all in the anterior left shoulder. Trouble sleeping last night. He is taking hydrocodone for pain at the moment. No difficulty with right shoulder movement. Received cortisone injection during procedure as well. Reported Pain Level Pain Score 4: Self Report Assessment PT Clinical Summary Patient presenting with greatly improved ROM following post manipulation. Patient demonstrates motivation to improve and understanding of HEP to achieve maximal functional shoulder motion at this time. Patient will benefit from skilled therapy to improve shoulder strength, functional reach, and reduce pain for gross improved shoulder function. Plan of Care Interventions Electrical Stimulation,Hot Pack/Cold Pack,Manual Therapy,Neuro Re-education,Therapeutic Activities, Therapeutic Exercise PT Services Indicated Yes Treatment Frequency and 2-3x/week for 10 visits Duration These treatments will address the objective and functional deficits as defined above. The patient will be advanced safely and appropriately in order for the patient to progress towards his/her prior level of function. Additional exercises will be introduced and as well as a comprehensive home exercise program upon discharge, if needed, ?to ensure carryover of functional gains achieved in the clinic. This treatment plan has been reviewed and agreement upon by the patient.
--- NOTE | 2024-08-10 09:14 | PCPTNOTE ---
No call no show, reason unknown. AKKiera
--- NOTE | 2024-08-14 08:54 | PCPTNOTE ---
No call no show, reason unknown. Left [facility] with pt to call and let us know if he needs our services. Note:Last visit pt was doing much better. KIRILL
--- NOTE | 2024-08-17 08:27 | PCPTNOTE ---
Called and left mssg regarding (3) No shows. I assume no longer needs ou services and will be removed from the schedule as of today. Pt to call if any questions. AKS
--- NOTE | 2024-08-21 08:23 | PCPTNOTE ---
Pt canceled all remaining visit due improved status.
--- NOTE | 2024-08-21 12:05 | PTOPDC ---
Assessment and note entered by Seth Watson, PT Evaluation Information Assessment Status Discharge - Pt Not Presen Diagnosis Left shoulder pain, Manipulation under anesthesia Onset 08/02/24 Subjective Information Patient contacted clinic. Reports 100% improvement and requests discharge for therapy at this time. Assessment PT Clinical Summary Patient to be discharged from skilled therapy at this time per request. Please refer to last progress note for discharge status. Plan of Care PT Services Indicated Yes
== END 2024-08-21 13:13 | disposition home or self-care (01) ==
LOC: ANHPT 08:15
PROVIDERS: PCP Family Medicine; Visit Provider Orthopaedic Surgery
DX: E11.618 Type 2 diabetes mellitus with other diabetic arthropathy (principal); M75.00 Adhesive capsulitis of unspecified shoulder; M25.512 Pain in left shoulder
CPT/HCPCS: 97110; 97140; 97161

== ENCOUNTER 2024-09-04 13:07 | Outpatient (CLI) | payer BC, SELFPAY ==
--- NOTE | ~2024-09-04 | XR_ITS ---
EXAMINATION: XR ribs LT 2V w CXR 2V DATE: 09/04/2024 13:24 INDICATION: Pleurodynia. Lower lateral rib pain. Fall. TECHNIQUE: Frontal and lateral views of the chest and 2 views on 4 radiographs of the left ribs were obtained. COMPARISON: Chest 2 views 07/31/2021 FINDINGS: CHEST TWO VIEWS: There is no pneumonia, pleural effusion, or pneumothorax. The heart size is normal. Surgical clips in the right upper quadrant are likely from cholecystectomy. LEFT RIBS: There is no rib fracture. IMPRESSION: 1. No rib fracture. Reviewed, dictated and finalized at location B. IMPRESSION: 1. No rib fracture.
== END 2024-09-04 13:08 | disposition home or self-care (01) ==
LOC: ANHIMG 13:07
PROVIDERS: PCP Family Medicine; Visit Provider Physician Assistant Medical
DX: R07.81 Pleurodynia (principal)
CPT/HCPCS: 71046; 71100

== ENCOUNTER 2024-09-21 13:18 | Outpatient (CLI) | payer BC, SELFPAY ==
--- NOTE | ~2024-09-21 | US_ITS ---
EXAMINATION: US carotid duplex BI DATE: 09/21/2024 13:48 INDICATION: Syncope and collapse TECHNIQUE: Grayscale, color Doppler, and pulsed Doppler images of the cervical carotid arteries were obtained. The degree of vessel stenosis is placed in one of the following categories: normal, <50%, 5 0-69%, >=70% but less than near-occlusion, near-occlusion, or total occlusion. Note that percent sten osis relative to normal distal artery lumen diameter is indirectly measured from velocity measurement s as described by Han, et al. Radiology 2003; 229:340-346. COMPARISON: None. FINDINGS: RIGHT: The right common carotid artery (CCA) peak systolic velocity (PSV) is 89 cm/s. The right internal car otid artery (ICA) PSV is 89 cm/s. The right ICA end-diastolic velocity (EDV) is 24 cm/s. The right IC A/CCA PSV ratio is 1.0. Grayscale and color Doppler images yield an estimate of <50% diameter reducti on from plaque in the ICA. The external carotid artery (ECA) PSV is 148 cm/s. There is antegrade flow in the right vertebral artery. LEFT: The left CCA PSV is 66 cm/s. The left ICA PSV is 119 cm/s. The left ICA EDV is 31 cm/s. The left ICA/ CCA PSV ratio is 1.8. Grayscale and color Doppler images yield an estimate of <50% diameter reduction from plaque in the ICA. The ECA PSV is 148 cm/s. There is antegrade flow in the left vertebral arter y. IMPRESSION: 1. <50% stenosis in the right internal carotid artery. 2. <50% stenosis in the left internal carotid artery. Reviewed, dictated and finalized at location B. 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
== END 2024-09-21 13:19 | disposition home or self-care (01) ==
LOC: MICIMG 13:18
PROVIDERS: PCP Family Medicine; Visit Provider Physician Assistant Medical
DX: I65.23 Occlusion and stenosis of bilateral carotid arteries (principal)
CPT/HCPCS: 93880

== ENCOUNTER 2024-11-02 08:39 | Outpatient (CLI) | payer BC, SELFPAY ==
--- NOTE | 2024-11-02 09:01 | ECHO_ITS ---
Patient Info Name: Herminio Cristobal Age: 63 years : 1960 Gender: Male Ht: 69 in Wt: 260 lbs BSA: 2.45 m2 HR: 80 bpm BP: 164 / 88 mmHg Technical Quality: Poor Exam Date: 11/02/2024 9:06 AM Exam Location: Echo Lab Patient Status: Outpatient Admit Date: 11/02/2024 Staff Ordering Physician: Nando Kc DO Pediatric Physician: Cortez Downs RDCS Attending Provider: Nando Kc DO Referring Physician: De NOBLES; Exam Type: CA echo dop color flow w con Study Info Indications - COLLAPSE - SYNCOPE Complete two-dimensional, color flow and Doppler transthoracic echocardiogram is performed with contrast to opacify the left ventricle and to improve the deliniation of the left ventricle endocardial borders. Contrast/Agitated Saline Contrast/Ag. Saline: Definity Amount: 2.00 ml Existing IV Access: Yes Reason for Poor Study: poor echocardiographic windows Summary 1. The transthoracic echocardiogram is normal by two-dimensional, color flow imaging, and Doppler interrogation. 2. LVEF 66%, Mild diastolic dysfunction. Trace TR. Contrast was used for LV wall motion delineation and LV function assessment. Left Ventricular Outflow Tract Name Value Normal LVOT 2D LVOT Diameter 2.17 cm LVOT Doppler LVOT Peak Gradient 5 mmHg LVOT Mean Gradient 3 mmHg LVOT VTI 21.47 cm LVOT VTI/AV VTI Ratio 0.87 LVOT Stroke Volume 79.08 ml LVOT CO 5.50 l/min LVOT CI 2.25 L/min/m2 Pulmonic Valve Name Value Normal RVOT Doppler RVOT Peak Gradient 4 mmHg PV Doppler PV Peak Gradient 4 mmHg Mitral Valve Name Value Normal MV Doppler MV Decel Braxton 399.25 cm/s2 MV PHT 0 s MV Area (PHT) 4.68 cm2 4.00-5.00 MV Diastolic Function MV E Peak Velocity 64.75 cm/s MV A Peak Velocity 80.39 cm/s MV E/A 0.81 MV Decel Time 0 s MV Annular TDI MV E/e' (Septal) 10.21 <=8.00 MV E/e' (Lateral) 6.18 <=8.00 MV E/e' (Average) 8.20 Aorta Name Value Normal Ascending Aorta Ao Root Diameter (MM) 3.77 cm Ao Root Diam Index (MM) 1.54 cm/m2 Aortic Valve Name Value Normal AV Doppler AV Peak Velocity 123.10 cm/s AV Peak Gradient 6 mmHg AV Mean Gradient 4 mmHg AV VTI 24.64 cm AV Area (Cont Eq VTI) 3.21 cm2 >=3.00 AV Area (Cont Eq Arslan) 3.30 cm2 AV Regurgitation 2D LVOT Area 3.68 cm2 Ventricles Name Value Normal LV Dimensions 2D/MM IVS Diastolic Thickness (2D) 1.32 cm 0.60-1.00 LVID Diastole (2D) 3.01 cm 4.20-5.80 LVIW Diastolic Thickness (2D) 1.97 cm 0.60-1.00 LVID Systole (2D) 2.11 cm 2.50-4.00 LVOT Diameter 2.17 cm LV Mass (2D Cubed) 185.87 g 88.00-224.00 LV Mass Index (2D Cubed) 0.01 g/cm2 0.00-0.01 Relative Wall Thickness (2D) 1.31 LV Fractional Shortening/Ejection Fraction 2D/MM LV Fractional Shortening (2D) 29 % 25-43 LV EF (2D [place]) 58 % 52-72 LV Diastolic Volume (4C MOD) 78.05 ml LV EF (4C MOD) 61 % LV Diastolic Volume (2C MOD) 58.59 ml LV EF (2C MOD) 68 % LV Diastolic Volume (BP MOD) 71.11 ml 62.00-150.00 LV Diastolic Volume Index (BP MOD) 0.03 l/m2 0.03-0.07 LV Systolic Volume (BP MOD) 24.05 ml 21.00-61.00 LV Systolic Volume Index (BP MOD) 0.01 l/m2 0.01-0.03 LV EF (BP MOD) 66 % 52-72 LV Diastolic Length (4C) 8.29 cm LV Systolic Length (4C) 5.77 cm LV Stroke Volume (4C MOD) 47.28 ml Atria Name Value Normal LA Dimensions LA Dimension (MM) 3.25 cm 3.00-4.10 LA Volume (4C A-L) 41.12 ml LA Volume (BP A-L) 35.61 ml RA Dimensions RA Area (4C) 24.05 cm2 <=18.00 Report Signatures
[2024-11-02] MEDS: PERFLUTREN LIPID MICROSPHERES 1.5 ML VIAL DILUTED TO 10 ML TOTAL VOLUME IV PUSH (09:46)
--- NOTE | 2024-11-02 10:09 | IVDEFINITY ---
Prior to administration of IV Definity the patient was educated on the risks and benefits of the imaging enhancing agent including potential adverse side effects. The patient verbalized understanding. Allergies were verified. No exclusion criteria were identified and at least one of the following inclusion criteria were met: 1) physician request, 2) patient technically difficult to image (per the [place] [employer] Echocardi[employer] guidelines of two or more segments not discernable within the apical view), or 3) questionable left ventricular function. ?
--- OUTSIDE RECORDS SUMMARY | 2024-11-09 19:38 | XMS_ITS | Continuity of Care Document ---
Author Organization [facility] Address [address] [place] [address] [place] [address] Phone Care Team Providers Care Roller Engraver Name Role Phone Trino Lopez Unavailable Unavailable Procedures Procedure Date Eye Exam Established Pt Ophthalmoscopy, Subsequent Eye Exam & Treatment Ophthalmoscopy, Subsequent Post-op Follow-up Visit Ophthalmoscopy, Subsequent Eye Exam Established Pt Ophthalmoscopy, Subsequent Ophthalmoscopy, Subsequent Office Consultation Ophthalmoscopy Advance Directives Directive Yes / No Effective Date File Name No Information Encounters Encounter Description Practice Location Reason(s) For Visit Diagnoses Date Provider Providers Copied on Encounter [facility], [address] [place], [place] [address] [address], [place], [place], [id number], [place] tel:[phone] [facility] No Information 1-200 9 [address]on[address] [place], [address], [place]. tel:[phone] Referring Provider: Trino Beal, [address] [place], [address]. tel:[phone] 4976 [facility], [address] [place], [place] [address], [place], [place], [id number], [place] tel:[phone] [facility] No Information March-0 4-200 9 [address] [place], [address], [place]. tel:[phone] Referring Provider: Trino Beal, [address] [place], [address]. tel:[phone] [facility], [address], [place], [place], [id number], [place] tel:[phone] [facility] No Information Apr-2 7-200 9 [address] [place], [address], [place]. tel:[phone] [facility], [address], [place], [place], [id number], [place] tel:[phone] [facility] No Information Apr-2 3-200 9 Jessica [address]on[address] [place], [address], [place]. tel:[phone] Office Consultation [facility], [address], [place], [place], [id number], [place] tel:[phone] [facility] No Information Apr-0 9-200 9 [address] [place], [address], [place]. [phone] Referring Provider: Patricia Patterson, [address] [facility], [place], [address]. tel:[phone] Family History Family Member Type Diagnosis Age At Onset No Information Payers Payer name Insurance type Covered constitution party ID Niccia altaf(s) [employer] [place] [id number] Social History Type Description Quantity Date Captured Comments Sex Male Smoking Status No Information Chief Complaint And Reason For Visit No Information Reason For Referral Reason For Referral No Information History Of Present Illness Encounter Date Complaint History Of Prese nt Illness No Information Functional Status Date Functional Assessmen t No Information Instructions Date Instruction Additional Infor mation No Information Assessments Type Assessment Date No Information Patient Care Teams Name Effective Dates (start - stop) Status Members No Information
--- OUTSIDE RECORDS SUMMARY | 2024-11-09 19:38 | XMS_ITS ---
Author Organization [facility] [employer] [facility] Address [address] [place] [address] Care Team Providers Care Vegetable Harvest Worker Name Role Phone HANNA HOLLOWAY MD Primary Care Provider Unavail able Mitul Moyer Unavailable [phone] REASON FOR VISIT TMS Social History Sex Assigned At : Social History Observation Description Sex Assigned At Male Encounters Encounter [facility] Date [facility] [address] [facility] [address] [place] [address] 09/25/2024 Mitul Moyer Plan Of Treatment No Information Progress Notes * KAT HEARD ADOB:[birth year] (64 yo M)Acc No.[id number]:09/25/2024 Patient:?KAT HEARD :1960???Age:63 Y???Sex:Male Address:[address] [place] [address], [address] * * Date:?
--- OUTSIDE RECORDS SUMMARY | 2024-11-09 19:38 | XMS_ITS ---
Author Organization [facility] Address [facility] [facility] [address] [place] [address] Care Team Providers Care Automotive Accessory Installer Name Role Phone HANNA HOLLOWAY MD Primary Care Provider Unavail able Mitul Moyer Unavailable [phone] REASON FOR VISIT Vilazadone refill Medications Medication SIG (Take, Route, Fr equency, Duration) Notes Start Date End Date Status Vilazodone HCl 40 MG 1 tablet with food Orally Once a day for 90 days take with food Active Social History Sex Assigned At : Social History Observation Description Sex Assigned At Male Encounters Encounter Location Date Provider Diagnosis [facility] [employer] [address] [address] 09/25/2024 Mitul Moyer Major depressive disorder, recurrent severe without psychotic features F33.2 Assessments Encounter Date Diagnosis (ICD Code) Assessment Notes Treatment Notes Treatment Clinical Notes Section Notes 09/25/2024 Major depressive disorder, recurrent severe without psychotic features (ICD-10 - F33.2) Plan Of Treatment Medication Medication Name Sig Start Date Stop Date Notes Vilazodone HCl 40 MG 1 tablet with food Orally Once a day for 90 days Progress Notes * KAT HEARD ADOB:[birth year] (63 yo M)Acc No.[id number]:09/25/2024 Patient:?KAT HEARD Rambo :1960???Age:63 Y???Sex:Male Address:[address] [place] [address], [address] * Refills? Refill Vilazodone HCl Tablet, 40 MG, Orally, 90 Tablet, 1 tablet with food, Once a day, 90 days, Refills=0 * true * Date:? 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
--- OUTSIDE RECORDS SUMMARY | 2024-11-09 19:38 | XMS_ITS | Patient Health Record ---
Author Organization [facility] As [facility] [employer] Address [address] [place] [address] Care Team Providers Care [employer] C[employer] Developer Name Role Phone JEWEL VALDIVIA, [facility] Primary Care Provider Unavail able Mitul Moyer Unavailable [phone] Flavia Brown Unavailable [phone] Migration, Provider Unavailable Unavailable Shikha Martinez Unavailable [phone] Allergies Allergen (clinical drug ingredient) Drug/Non Drug Allergy documented on EMR Reaction Allergy Type Onset Date Status levofloxacin levoFLOXacin Unknown Drug Allergy 01/22/2022 Active Reason For Referral No Information Medications Medication SIG (Take, Route, Frequency, Duration) Notes Start Date End Date Status Nebivolol HCl 5 MG Oral for 90 Days Unknown Dexcom G6 Transmitter - for 90 Days Unknown Meloxicam 15 MG TAKE 1 TABLET BY HO TH EVERY DAY Oral for 30 Days Unknown Benazepril-hydroCHLOROthia zide 10-12.5 MG Oral for 90 Days Unknown Lantus SoloStar 100 UNIT/ML Subcutaneous for 12 Days Unk nown Gabapentin 300 MG TAKE 1 CAPSULE BY MO UTH EVERY EVENING AT BEDTIME Oral for 90 Days Unknown NovoLOG FlexPen 100 UNIT/ML Subcutaneous for 25 Days Unk nown Vilazodone HCl 40 MG TAKE 1 TABLET BY MO UTH ONCE A DAY-TAKE WITH FOOD for 90 Active Pantoprazole Sodium 40 MG Oral for 56 Days Unknown QUEtiapine Fumarate ER 50 MG 2 tablet at bedtime Orally Once a day for 90 days Active Albuterol Sulfate HFA 108 (90 Base) MCG/ACT Inhalation for 90 Days Unknown Ozempic (1 MG/DOSE) 4 MG/3ML Subcutaneous for 84 Days Unk nown Farxiga 10 MG Oral for 90 Days Unknown Car KwikPen 100 UNIT/ML Subcutaneous for 24 Days Unk nown Immunizations Vaccine Route Administration Date Status Comme nts Influenza, seasonal, injecta ble, preservative free, 3 yrs and above Unknown 10/05/2014 Administered Pfizer Biontech Covid-19 Vac cine 2nd dose Unknown 02/26/2021 Administered Pfizer Biontech Covid-19 Vac cine 2nd dose Unknown 03/19/2021 Administered Social History Tobacco Use: Social History Observation Description Date Details (start date - stop date) Never Smoker NA - NA Sex Assigned At : Social History Observation Description Sex Assigned At Male Tobacco Control (Standard) Question Answer Notes Tobacco use: Nonsmoker AUDIT-C (Standard) Question Answer Notes Did you have a drink containing alcohol in the p ast year? No Problems Problem Type SNOMED Code ICD Code Onset Dates Problem Status W/U Status Risk Notes Problem Type I diabetes mellitus without complication (489217634) Type 1 diabetes mellitus without complications (E10.9) Active confirmed Problem Severe recurrent major depression without psychotic features (20043945) Major depressive disorder, recurrent severe without psychotic features (F33.2) Active confirmed Problem Generalized anxiety disorder (84472522) Generalized anxiety disorder (F41.1) Active confirmed Problem Posttraumatic stress disorder (28878010) Post-traumatic stress disorder, chronic (F43.12) Active confirmed Problem Grief (405809105) Grief (F43.21) Active confirm ed Vital Signs Heart Rate 86 /min 08/18/2024 Height-cm 175.26 cm 08/18/2024 Blood pressure diastolic 74 mm Hg 08/18/2024 Weight-kg 121.11 kg 08/18/2024 Height 69.00 in 08/18/2024 Blood pressure systolic 114 mm Hg 08/18/2024 Weight 267 lbs 08/18/2024 BMI 39.42 kg/m2 08/18/2024 Encounters Encounter Location Date Provider Diagnosis [facility] [employer] [facility] [address] [facility] [address] [place] [address] 10/03/2024 Flavia Brown [facility] [employer] [facility] [address] [place] [address] 04/13/2024 Mitul Moyer Major depressive disorder, recurrent severe without psychotic features F33.2 ; Generalized anxiety disorder F41.1 and Type 1 diabetes mellitus without complications E10.9 [facility] [employer] [facility] [address] [place] [address] 05/01/2024 Mitul Comfort Major depressive disorder, recurrent severe without psychotic features F33.2 ; Generalized anxiety disorder F41.1 and Type 1 diabetes mellitus without complications E10.9 [facility] [employer], [facility] [address] [place] [address] 05/17/2024 Mitul Comfort Major depressive disorder, recurrent severe without psychotic features F33.2 ; Generalized anxiety disorder F41.1 and Type 1 diabetes mellitus without complications E10.9 [facility] [employer], [facility] [address] [place] [address] 05/18/2024 Shikha Hinderliter Major depressive disorder, recurrent severe without psychotic features F33.2 ; Post-traumatic stress disorder, chronic F43.12 and Grief F43.21 [facility] [employer] [facility] [address] [place] [address] 05/25/2024 Shikha Hinderliter Major depressive disorder, recurrent severe without psychotic features F33.2 ; Post-traumatic stress disorder, chronic F43.12 and Grief F43.21 [facility] [employer] [facility] [address] [place] [address] 05/31/2024 Mitul Comfort Major depressive disorder, recurrent severe without psychotic features F33.2 ; Generalized anxiety disorder F41.1 and Type 1 diabetes mellitus without complications E10.9 [facility] [employer] [facility] [address] [place] [address] 06/02/2024 Shikha Hinderliter Major depressive disorder, recurrent severe without psychotic features F33.2 ; Post-traumatic stress disorder, chronic F43.12 and Grief F43.21 [facility] [employer] [facility] [address] [place] [address] 06/06/2024 Shikha Hinderliter Major depressive disorder, recurrent severe without psychotic features F33.2 ; Post-traumatic stress disorder, chronic F43.12 and Grief F43.21 [facility] [employer] [facility] [address] [place] [address] 06/14/2024 Mitul Comfort Major depressive disorder, recurrent severe without psychotic features F33.2 ; Generalized anxiety disorder F41.1 and Type 1 diabetes mellitus without complications E10.9 [facility] [address] [place] [address] 06/14/2024 Shikha Hinderliter Major depressive disorder, recurrent severe without psychotic features F33.2 ; Generalized anxiety disorder F41.1 ; Post-traumatic stress disorder, chronic F43.12 and Grief F43.21 [facility] [address] [place] [address] 06/28/2024 Shikha Hinderliter Major depressive disorder, recurrent severe without psychotic features F33.2 ; Generalized anxiety disorder F41.1 ; Post-traumatic stress disorder, chronic F43.12 and Grief F43.21 [facility] [address] [place] [address] 07/05/2024 Mitul Comfort Major depressive disorder, recurrent severe without psychotic features F33.2 ; Generalized anxiety disorder F41.1 and Type 1 diabetes mellitus without complications E10.9 [facility] [address] [place] [address] 07/13/2024 Mitul Comfort Major depressive disorder, recurrent severe without psychotic features F33.2 [facility] [address] [place] [address] 07/17/2024 Mitul Comfort Major depressive disorder, recurrent severe without psychotic features F33.2 [facility] [address] [place] [address] 07/19/2024 Mitul Comfort Major depressive disorder, recurrent severe without psychotic features F33.2 [facility] [address] [place] [address] 07/19/2024 Shikha Hinderliter Major depressive disorder, recurrent severe without psychotic features F33.2 ; Generalized anxiety disorder F41.1 ; Post-traumatic stress disorder, chronic F43.12 and Grief F43.21 [facility] [address] [place] [address] 07/20/2024 Mitul Comfort Major depressive disorder, recurrent severe without psychotic features F33.2 [facility] [address] [place] [address] 07/21/2024 Mitul Comfort [facility], [facility] [address] [place] [address] 07/24/2024 Mitul Comfort Major depressive disorder, recurrent severe without psychotic features F33.2 [facility], [facility] [address] [place] [address] 07/25/2024 Mitul Comfort Major depressive disorder, recurrent severe without psychotic features F33.2 [facility], [facility] [address] [place] [address] 07/26/2024 Mitul Comfort Major depressive disorder, recurrent severe without psychotic features F33.2 [facility], [facility] [address] [place] [address] 07/27/2024 Mitul Comfort Major depressive disorder, recurrent severe without psychotic features F33.2 [facility], [facility] [address] [place] [address] 07/31/2024 Mitul Comfort Major depressive disorder, recurrent severe without psychotic features F33.2 [facility], [facility] [address] [place] [address] 08/01/2024 Mitul Comfort Major depressive disorder, recurrent severe without psychotic features F33.2 [facility], [facility] [address] [place] [address] 08/03/2024 Mitul Comfort Major depressive disorder, recurrent severe without psychotic features F33.2 [facility], [facility] [address] [place] [address] 08/04/2024 Mitul Comfort Major depressive disorder, recurrent severe without psychotic features F33.2 ; Generalized anxiety disorder F41.1 and Type 1 diabetes mellitus without complications E10.9 [facility], [facility] [address] [place] [address] 08/04/2024 Mitul Comfort Major depressive disorder, recurrent severe without psychotic features F33.2 [facility] [address] [place] [address] 08/04/2024 Shikha Michelle Major depressive disorder, recurrent severe without psychotic features F33.2 ; Generalized anxiety disorder F41.1 ; Post-traumatic stress disorder, chronic F43.12 and Grief F43.21 [facility], [facility] [address] [place] [address] 08/07/2024 Mitul Comfort Major depressive disorder, recurrent severe without psychotic features F33.2 [facility], [facility] [address] [place] [address] 08/09/2024 Mitul Comfort Major depressive disorder, recurrent severe without psychotic features F33.2 [facility], [facility] [address] [place] [address] 08/10/2024 Mitul Comfort Major depressive disorder, recurrent severe without psychotic features F33.2 [facility], [facility] [address] [place] [address] 08/11/2024 Mitul Comfort Major depressive disorder, recurrent severe without psychotic features F33.2 [facility], [facility] [address] [place] [address] 08/15/2024 Mitul Comfort Major depressive disorder, recurrent severe without psychotic features F33.2 [facility], [facility] [address] [place] [address] 08/16/2024 Mitul Comfort Major depressive disorder, recurrent severe without psychotic features F33.2 [facility], [facility] [address] [place] [address] 08/17/2024 Mitul Comfort Major depressive disorder, recurrent severe without psychotic features F33.2 [facility], [facility] [address] [place] [address] 08/18/2024 Mitul Comfort Major depressive disorder, recurrent severe without psychotic features F33.2 [facility], [facility] [address] [place] [address] 08/18/2024 Mitul Comfort Major depressive disorder, recurrent severe without psychotic features F33.2 ; Generalized anxiety disorder F41.1 and Type 1 diabetes mellitus without complications E10.9 [facility], [facility] [address] [place] [address] 08/22/2024 Mitul Comfort Major depressive disorder, recurrent severe without psychotic features F33.2 [facility], [facility] [address] [place] [address] 08/23/2024 Mitul Comfort Major depressive disorder, recurrent severe without psychotic features F33.2 [facility], [facility] [address] [place] [address] 08/24/2024 Mitul Comfort Major depressive disorder, recurrent severe without psychotic features F33.2 [facility], [facility] [address] [place] [address] 08/25/2024 Mitul Comfort Major depressive disorder, recurrent severe without psychotic features F33.2 [facility], [facility] [address] [place] [address] 08/28/2024 Mitul Comfort Major depressive disorder, recurrent severe without psychotic features F33.2 [facility], [facility] [address] [place] [address] 09/04/2024 Mitul Comfort Major depressive disorder, recurrent severe without psychotic features F33.2 [facility], [facility] [address] [place] [address] 09/05/2024 Mitul Comfort Major depressive disorder, recurrent severe without psychotic features F33.2 [facility], [facility] [address] [place] [address] 09/07/2024 Mitul Comfort Major depressive disorder, recurrent severe without psychotic features F33.2 [facility] [address] [place] [address] 09/11/2024 Shikha Hinderliter Major depressive disorder, recurrent severe without psychotic features F33.2 ; Generalized anxiety disorder F41.1 ; Post-traumatic stress disorder, chronic F43.12 and Grief F43.21 [facility] [address] [place] [address] 09/25/2024 Shikha Hinderliter Major depressive disorder, recurrent severe without psychotic features F33.2 ; Generalized anxiety disorder F41.1 ; Post-traumatic stress disorder, chronic F43.12 ; Grief F43.21 and Type 1 diabetes mellitus without complications E10.9 [facility], [facility] [address] [place] [address] 09/25/2024 Mitul Comfort [facility], [facility] [address] [place] [address] 03/25/2024 Provider Migration [facility] [employer], [facility] [address] [place] [address] 03/26/2024 Provider [facility] [employer], [facility] [address] [place] [address] 05/01/2024 Mitul [facility] [employer], [facility] [address] [place] [address] 06/28/2024 Mitul [facility], [facility] [address] [place] [address] 07/21/2024 [facility] [address] [place] [address] 08/01/2024 Mitul [facility] [employer], [facility] [address] [place] [address] 09/25/2024 Mitul Moyer Major depressive disorder, recurrent severe without psychotic features F33.2 Assessments Encounter Date Diagnosis (ICD Code) Assessment Notes Treatment Notes Treatment Clinical Notes Section Notes 04/13/2024 Major depressive disorder, recurrent severe without psychotic features (ICD-10 - F33.2) Major Depressive Disorder, recurrent, severe - Assessment: Patient reports worsening depression and mood swings over the past six months, with periods of feeling better off but no active suicidal ideation. Patient has been off medications for two years and has not been receiving any treatment for depression. - Plan: - Start vilazodone (Viibryd) 20 mg: half tablet once daily for seven days, then one tablet once daily. - Schedule follow-up appointment in two weeks to assess response to medication and adjust treatment plan as needed. - Instruct patient to contact the clinic if suicidal thoughts worsen or if there are any concerns about medication side effects. Insomnia - Assessment: Patient reports difficulty sleeping, tossing and turning, and racing thoughts at night. - Plan: - Monitor sleep quality during follow-up appointments and assess the impact of vilazodone on sleep. - Consider additional interventions for insomnia if sleep does not improve with the treatment of depression. Grief and loss - Assessment: Patient's prior to the initiation of TMS treatment. - Plan: - Continue to monitor the patient's emotional well-being and provide support during follow-up appointments. - Consider referral to a grief counselor or support group if needed. Medication adherence - Assessment: Patient discontinued medications on their own, believing they no longer needed them. - Plan: - Educate the patient on the importance of medication adherence and the potential risks of discontinuing treatment without medical supervision. - Encourage open communication about any concerns or side effects related to medications during follow-up appointments. 04/13/2024 Generalized anxiety disorder (ICD-10 - F41.1) Learning About Generalized Anxiety Disorder material was published Major Depressive Disorder, recurrent, severe - Assessment: Patient reports worsening depression and mood swings over the past six months, with periods of feeling better off but no active suicidal ideation. Patient has been off medications for two years and has not been receiving any treatment for depression. - Plan: - Start vilazodone (Viibryd) 20 mg: half tablet once daily for seven days, then one tablet once daily. - Schedule follow-up appointment in two weeks to assess response to medication and adjust treatment plan as needed. - Instruct patient to contact the clinic if suicidal thoughts worsen or if there are any concerns about medication side effects. Insomnia - Assessment: Patient reports difficulty sleeping, tossing and turning, and racing thoughts at night. - Plan: - Monitor sleep quality during follow-up appointments and assess the impact of vilazodone on sleep. - Consider additional interventions for insomnia if sleep does not improve with the treatment of depression. Grief and loss - Assessment: Patient's prior to the initiation of TMS treatment. - Plan: - Continue to monitor the patient's emotional well-being and provide support during follow-up appointments. - Consider referral to a grief counselor or support group if needed. Medication adherence - Assessment: Patient discontinued medications on their own, believing they no longer needed them. - Plan: - Educate the patient on the importance of medication adherence and the potential risks of discontinuing treatment without medical supervision. - Encourage open communication about any concerns or side effects related to medications during follow-up appointments. 08/25/2024 Major depressive disorder, recurrent severe without psychotic features (ICD-10 - F33.2) 08/24/2024 Major depressive disorder, recurrent severe without psychotic features (ICD-10 - F33.2) 08/23/2024 Major depressive disorder, recurrent severe without psychotic features (ICD-10 - F33.2) 08/22/2024 Major depressive disorder, recurrent severe without psychotic features (ICD-10 - F33.2) 07/19/2024 Major depressive disorder, recurrent severe without psychotic features (ICD-10 - F33.2) 1. Depression - Continue Transcranial Magnetic Stimulation (TMS) therapy as the patient reports feeling better with fewer negative thoughts and no recent crying episodes after 3 sessions. - Maintain current medication regimen as prescribed. -Practice gratitude at the end of each day. 2. Sleep Disturbances - Given the patient's report of improved sleep with increased medication dosage but persistent occasional nightmares, continue to monitor sleep quality and consider medication adjustments as needed. - With the patient awaiting sleep study results and potential need for CPAP therapy based on preliminary findings, follow up on sleep study outcomes. 3. Headache - For headaches experienced post-TMS session, recommend Aleve for relief and monitor for any further TMS-related headaches. 4. Anxiety and Stress Management - Support the patient's strategy of focusing on one day at a time and recognizing small wins to enhance happiness. Encourage the continuation of these coping mechanisms. - Provide ongoing support and guidance for managing stressors related to work, family, and personal life. 5. Follow-up - Arrange a follow-up appointment in two weeks to evaluate progress and discuss any emerging concerns. - Remind the patient about the availability of walk-in services should they require assistance before the next scheduled visit. 07/19/2024 Generalized anxiety disorder (ICD-10 - F41.1) 1. Depression - Continue Transcranial Magnetic Stimulation (TMS) therapy as the patient reports feeling better with fewer negative thoughts and no recent crying episodes after 3 sessions. - Maintain current medication regimen as prescribed. -Practice gratitude at the end of each day. 2. Sleep Disturbances - Given the patient's report of improved sleep with increased medication dosage but persistent occasional nightmares, continue to monitor sleep quality and consider medication adjustments as needed. - With the patient awaiting sleep study results and potential need for CPAP therapy based on preliminary findings, follow up on sleep study outcomes. 3. Headache - For headaches experienced post-TMS session, recommend Aleve for relief and monitor for any further TMS-related headaches. 4. Anxiety and Stress Management - Support the patient's strategy of focusing on one day at a time and recognizing small wins to enhance happiness. Encourage the continuation of these coping mechanisms. - Provide ongoing support and guidance for managing stressors related to work, family, and personal life. 5. Follow-up - Arrange a follow-up appointment in two weeks to evaluate progress and discuss any emerging concerns. - Remind the patient about the availability of walk-in services should they require assistance before the next scheduled visit. 05/01/2024 Major depressive disorder, recurrent severe without psychotic features (ICD-10 - F33.2) Major Depressive Disorder - Assessment: - Patient reports persistent sadness, rating it as 8 out of 10. - Suicidal thoughts present but no plans to harm self. - PHQ-9 score improved from 18 to 14. - Currently on vilazodone 20 mg daily. - Plan: - Increase vilazodone to 40 mg daily with food. - Add Rexulti 0.5 mg daily in the evening to augment treatment. - Provide copay card and samples of Rexulti. - Schedule follow-up in 2 weeks. - Refer to counseling for crisis management and therapy. 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 - Plan: - Monitor sleep after increasing vilazodone and adding Rexulti. - Address sleep hygiene and consider sleep aids if needed at follow-up. Hypertension - Assessment: Patient is currently on blood pressure medication. - Plan: - Continue current blood pressure medication. - Monitor blood pressure at follow-up appointments. Diabetes - Assessment: Patient is currently on insulin. - Plan: - Continue current insulin regimen. - Monitor blood glucose levels at follow-up appointments. 05/17/2024 Major depressive disorder, recurrent severe without psychotic features (ICD-10 - F33.2) Major Depressive Disorder - Assessment: Patient reports feeling slightly better after starting vilazodone and Rexulti, but still experiences persistent depressive symptoms, including thoughts about dying and . - Plan: - Continue vilazodone 40 mg daily and Rexulti as prescribed. - Monitor for any side effects or changes in mood. Insomnia - Assessment: Patient reports difficulty sleeping, with only 3-4 hours of sleep per night and tossing and turning. - Plan: - Continue trazodone as prescribed for sleep. - Monitor sleep patterns and consider adjusting the dose or changing medication if sleep does not improve. Poor Appetite - Assessment: Patient reports a decreased appetite. - Plan: - Encourage the patient to maintain a balanced diet and monitor weight changes. Social Support - Assessment: Patient is experiencing a sense of loss due to a close friend's correction. - Plan: - Encourage the patient to maintain contact with their friend and seek additional social support as needed. Psychotherapy - Assessment: Patient is scheduled to start seeing a therapist, Shikha, next week. - Plan: - Move up the appointment with Shikha to an earlier date, if possible, to provide additional support and address ongoing depressive symptoms. - Consider keeping the original appointment as a follow-up, depending on the outcome of the earlier session. TMS (Transcranial Magnetic Stimulation) Consideration - Assessment: Patient inquired about TMS as a potential treatment option. - Plan: - Hold off on TMS for now and reassess after the patient has had a chance to work with the therapist and monitor the effectiveness of the current medication regimen. Follow-up - Plan: - Schedule a follow-up appointment to monitor the patient's progress, medication effectiveness, and any changes in symptoms. 05/25/2024 Major depressive disorder, recurrent severe without psychotic features (ICD-10 - F33.2) Preferred name: Matias Pronouns: he/him Sexual Orientation: straight Marital Status: , was for 32 years. Living Arrangement: son lives with him Children: 5 children, 4 daughters and 1 son. 15 grandchildren. 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 Suicidal Ideation/Self Harm: Noted passive SI. States that he is indifferent on if he lives or dies, if he wakes up or doesn't. Denies wanting to harm self though reports it scares him to have this mindset. Homicidal Ideation: Denied Access to Means (firearms, stockpiled medication, etc): Denied Chief Complaint: I'm depressed about my passing away 3 years ago. Anxiety: tired of worrying about everything and everybody. Noted difficulty controlling worry and racing thoughts. States that these thoughts often prevent him from sleeping. Irritability. GAD7 score of 14 Depression: Loneliness. Grief and loss. PHQ9 score of 18. Poor sleep and appetite. Pessimistic attitude. I'd be okay if I didn't wake up. Noted that he feels like he hates everything and that scares him. That's no way to live life. Anger/Aggression: my son says I get angry at the drop of a hat. Yelling. Denied physical aggression. Obsessions/Compul sions: Denied Carrie: Denied Psychosis: Denied Sleep: Terrible Average of 2-3 hours of sleep a night. Can't stay asleep, will wake after 2-3 hours but has trouble falling back asleep. Will toss and turn. Noted nightmares of reliving his 's end of life and finding his mom . Appetite: Noted poor appetite Trauma: Found his mom in her home and due to a recent surgery he had, police began to question him as a suspect before they confirmed with his doctor about surgery. With his brother, found his nephew who had completed suicide by hanging. Noted that he and his brother cut nephew down while waiting on first responders to arrive and then was threatened to be arrested due to tampering with evidence . Arrest me. I've got bail money. I wasn't just going to stand there and watch him hang. As oldest grandson, he had to arrange end of life care and arrangements for his grandma. He also had to act as medical power of health care attorney for his at end of life including signing paperwork to be removed from a ventilator and watching her take her last breath. Noted stressor of not being in contact with his father due to his stepmom preventing Matias and his brother from having contact. Noted that he will occasionally call local police to complete a welfare check on dad. Substance Use (type, last use, amount, frequency, withdrawal symptoms): Denied Gambling/Other Addictive Behaviors: Denied ADLs (Hygiene, Chores, Cooking, Shopping): Denied concerns. Interests/Skills/ Hobbies: I like to travel. Would like to go to [place] to visit grandson. If could afford it, [place] to visit grandson in [place]. I don't really care where I go, I just want to go. Noted that he and his used to travel. Strengths: very caring person. Likes to help others that help themselves. Open to treatment and interventions. Limitations: pessimistic mindset Goal(s) for Therapy: I wanna quit feeling this way. In regards to indifference on living and negative mindset. 05/18/2024 Major depressive disorder, recurrent severe without psychotic features (ICD-10 - F33.2) Preferred name: Matias Pronouns: he/him Sexual Orientation: straight Marital Status: , was for 32 years. Living Arrangement: son lives with him Children: 5 children, 4 daughters and 1 son. 15 grandchildren. 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 Suicidal Ideation/Self Harm: Noted passive SI. States that he is indifferent on if he lives or dies, if he wakes up or doesn't. Denies wanting to harm self though reports it scares him to have this mindset. Homicidal Ideation: Denied Access to Means (firearms, stockpiled medication, etc): Denied Chief Complaint: I'm depressed about my passing away 3 years ago. Anxiety: tired of worrying about everything and everybody. Noted difficulty controlling worry and racing thoughts. States that these thoughts often prevent him from sleeping. Irritability. GAD7 score of 14 Depression: Loneliness. Grief and loss. PHQ9 score of 18. Poor sleep and appetite. Pessimistic attitude. I'd be okay if I didn't wake up. Noted that he feels like he hates everything and that scares him. That's no way to live life. Anger/Aggression: my son says I get angry at the drop of a hat. Yelling. Denied physical aggression. Obsessions/Compul sions: Denied Carrie: Denied Psychosis: Denied Sleep: Terrible Average of 2-3 hours of sleep a night. Can't stay asleep, will wake after 2-3 hours but has trouble falling back asleep. Will toss and turn. Noted nightmares of reliving his 's end of life and finding his mom . Appetite: Noted poor appetite Trauma: Found his mom in her home and due to a recent surgery he had, police began to question him as a suspect before they confirmed with his doctor about surgery. With his brother, found his nephew who had completed suicide by hanging. Noted that he and his brother cut nephew down while waiting on first responders to arrive and then was threatened to be arrested due to tampering with evidence . Arrest me. I've got bail money. I wasn't just going to stand there and watch him hang. As oldest grandson, he had to arrange end of life care and arrangements for his grandma. He also had to act as medical power of health care attorney for his at end of life including signing paperwork to be removed from a ventilator and watching her take her last breath. Noted stressor of not being in contact with his father due to his stepmom preventing Matias and his brother from having contact. Noted that he will occasionally call local police to complete a welfare check on dad. Substance Use (type, last use, amount, frequency, withdrawal symptoms): Denied Gambling/Other Addictive Behaviors: Denied ADLs (Hygiene, Chores, Cooking, Shopping): Denied concerns. Interests/Skills/ Hobbies: I like to travel. Would like to go to [place] to visit grandson. If could afford it, [place] to visit grandson in [place]. I don't really care where I go, I just want to go. Noted that he and his used to travel. Strengths: very caring person. Likes to help others that help themselves. Open to treatment and interventions. Limitations: pessimistic mindset Goal(s) for Therapy: I wanna quit feeling this way. In regards to indifference on living and negative mindset. 05/18/2024 Post-traumatic stress disorder, chronic (ICD-10 - F43.12) Preferred name: Matias Pronouns: he/him Sexual Orientation: straight Marital Status: , was for 32 years. Living Arrangement: son lives with him Children: 5 children, 4 daughters and 1 son. 15 grandchildren. 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 Suicidal Ideation/Self Harm: Noted passive SI. States that he is indifferent on if he lives or dies, if he wakes up or doesn't. Denies wanting to harm self though reports it scares him to have this mindset. Homicidal Ideation: Denied Access to Means (firearms, stockpiled medication, etc): Denied Chief Complaint: I'm depressed about my passing away 3 years ago. Anxiety: tired of worrying about everything and everybody. Noted difficulty controlling worry and racing thoughts. States that these thoughts often prevent him from sleeping. Irritability. GAD7 score of 14 Depression: Loneliness. Grief and loss. PHQ9 score of 18. Poor sleep and appetite. Pessimistic attitude. I'd be okay if I didn't wake up. Noted that he feels like he hates everything and that scares him. That's no way to live life. Anger/Aggression: my son says I get angry at the drop of a hat. Yelling. Denied physical aggression. Obsessions/Compul sions: Denied Carrie: Denied Psychosis: Denied Sleep: Terrible Average of 2-3 hours of sleep a night. Can't stay asleep, will wake after 2-3 hours but has trouble falling back asleep. Will toss and turn. Noted nightmares of reliving his 's end of life and finding his mom . Appetite: Noted poor appetite Trauma: Found his mom in her home and due to a recent surgery he had, police began to question him as a suspect before they confirmed with his doctor about surgery. With his brother, found his nephew who had completed suicide by hanging. Noted that he and his brother cut nephew down while waiting on first responders to arrive and then was threatened to be arrested due to tampering with evidence . Arrest me. I've got bail money. I wasn't just going to stand there and watch him hang. As oldest grandson, he had to arrange end of life care and arrangements for his grandma. He also had to act as medical power of health care attorney for his at end of life including signing paperwork to be removed from a ventilator and watching her take her last breath. Noted stressor of not being in contact with his father due to his stepmom preventing Matias and his brother from having contact. Noted that he will occasionally call local police to complete a welfare check on dad. Substance Use (type, last use, amount, frequency, withdrawal symptoms): Denied Gambling/Other Addictive Behaviors: Denied ADLs (Hygiene, Chores, Cooking, Shopping): Denied concerns. Interests/Skills/ Hobbies: I like to travel. Would like to go to [place] to visit grandson. If could afford it, [place] to visit grandson in [place]. I don't really care where I go, I just want to go. Noted that he and his used to travel. Strengths: very caring person. Likes to help others that help themselves. Open to treatment and interventions. Limitations: pessimistic mindset Goal(s) for Therapy: I wanna quit feeling this way. In regards to indifference on living and negative mindset. 05/31/2024 Major depressive disorder, recurrent severe without psychotic features (ICD-10 - F33.2) Major Depressive Disorder - Assessment: The patient reports experiencing a roller coaster of emotions, with only three to four good days in the past two weeks. The addition of Rexulti showed some improvement, but not enough to stabilize the patient's mood. - Plan: - Discontinue Rexulti. - Start Quetiapine ER (slow release) to help with anxiety symptoms and sleep. Instruct the patient to take one tablet in the evening, and if there is no improvement by Wednesday, increase to two tablets. - Schedule a follow-up appointment in two weeks. Insomnia - Assessment: The patient reports inconsistent sleep patterns, with some nights only getting two to three hours of sleep. Poor sleep seems to contribute to worsening mood the following day. - Plan: - Start Quetiapine ER (slow release) to help improve sleep quality. - Instruct the patient to take the medication around 5-6 p.m. to allow it to peak before bedtime. Adjust the timing if needed to prevent excessive daytime sleepiness. The patient typically gets home around 5-5:30 p.m. and struggles the most from 5 p.m. to 9 p.m. before going to bed around 9-9:30 p.m. Anxiety - Assessment: The patient experiences increased anxiety and racing thoughts, particularly in the evenings. - Plan: Quetiapine ER (slow release) should help calm the patient's mind and alleviate anxiety symptoms. Monitor the patient's response to the medication and adjust the dose as needed during the follow-up appointment. Medication Management - Assessment: The patient did not fill the Viibryd prescription, as they were unsure if it would be continued. - Plan: Continue Viibryd and instruct the patient to fill the prescription. Psychotherapy - Assessment: The patient has been meeting with therapist Shikha and has another appointment scheduled for Wednesday. - Plan: Encourage the patient to continue attending therapy sessions and coordinate follow-up appointments with the therapist as needed. If the therapist requests to see the patient in a week, schedule both appointments on the same day. 06/02/2024 Major depressive disorder, recurrent severe without psychotic features (ICD-10 - F33.2) Preferred name: Matias Pronouns: he/him Sexual Orientation: straight Marital Status: , was for 32 years. Living Arrangement: son lives with him Children: 5 children, 4 daughters and 1 son. 15 grandchildren. 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 Suicidal Ideation/Self Harm: Noted passive SI. States that he is indifferent on if he lives or dies, if he wakes up or doesn't. Denies wanting to harm self though reports it scares him to have this mindset. Homicidal Ideation: Denied Access to Means (firearms, stockpiled medication, etc): Denied Chief Complaint: I'm depressed about my passing away 3 years ago. Anxiety: tired of worrying about everything and everybody. Noted difficulty controlling worry and racing thoughts. States that these thoughts often prevent him from sleeping. Irritability. GAD7 score of 14 Depression: Loneliness. Grief and loss. PHQ9 score of 18. Poor sleep and appetite. Pessimistic attitude. I'd be okay if I didn't wake up. Noted that he feels like he hates everything and that scares him. That's no way to live life. Anger/Aggression: my son says I get angry at the drop of a hat. Yelling. Denied physical aggression. Obsessions/Compul sions: Denied Carrie: Denied Psychosis: Denied Sleep: Terrible Average of 2-3 hours of sleep a night. Can't stay asleep, will wake after 2-3 hours but has trouble falling back asleep. Will toss and turn. Noted nightmares of reliving his 's end of life and finding his mom . Appetite: Noted poor appetite Trauma: Found his mom in her home and due to a recent surgery he had, police began to question him as a suspect before they confirmed with his doctor about surgery. With his brother, found his nephew who had completed suicide by hanging. Noted that he and his brother cut nephew down while waiting on first responders to arrive and then was threatened to be arrested due to tampering with evidence . Arrest me. I've got bail money. I wasn't just going to stand there and watch him hang. As oldest grandson, he had to arrange end of life care and arrangements for his grandma. He also had to act as medical power of health care attorney for his at end of life including signing paperwork to be removed from a ventilator and watching her take her last breath. Noted stressor of not being in contact with his father due to his stepmom preventing Matias and his brother from having contact. Noted that he will occasionally call local police to complete a welfare check on dad. Substance Use (type, last use, amount, frequency, withdrawal symptoms): Denied Gambling/Other Addictive Behaviors: Denied ADLs (Hygiene, Chores, Cooking, Shopping): Denied concerns. Interests/Skills/ Hobbies: I like to travel. Would like to go to [place] to visit grandson. If could afford it, [place] to visit grandson in [place]. I don't really care where I go, I just want to go. Noted that he and his used to travel. Strengths: very caring person. Likes to help others that help themselves. Open to treatment and interventions. Limitations: pessimistic mindset Goal(s) for Therapy: I wanna quit feeling this way. In regards to indifference on living and negative mindset. 06/06/2024 Major depressive disorder, recurrent severe without psychotic features (ICD-10 - F33.2) Preferred name: Matias Pronouns: he/him Sexual Orientation: straight Marital Status: , was for 32 years. Living Arrangement: son lives with him Children: 5 children, 4 daughters and 1 son. 15 grandchildren. 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 Suicidal Ideation/Self Harm: Noted passive SI. States that he is indifferent on if he lives or dies, if he wakes up or doesn't. Denies wanting to harm self though reports it scares him to have this mindset. Homicidal Ideation: Denied Access to Means (firearms, stockpiled medication, etc): Denied Chief Complaint: I'm depressed about my passing away 3 years ago. Anxiety: tired of worrying about everything and everybody. Noted difficulty controlling worry and racing thoughts. States that these thoughts often prevent him from sleeping. Irritability. GAD7 score of 14 Depression: Loneliness. Grief and loss. PHQ9 score of 18. Poor sleep and appetite. Pessimistic attitude. I'd be okay if I didn't wake up. Noted that he feels like he hates everything and that scares him. That's no way to live life. Anger/Aggression: my son says I get angry at the drop of a hat. Yelling. Denied physical aggression. Obsessions/Compul sions: Denied Carrie: Denied Psychosis: Denied Sleep: Terrible Average of 2-3 hours of sleep a night. Can't stay asleep, will wake after 2-3 hours but has trouble falling back asleep. Will toss and turn. Noted nightmares of reliving his 's end of life and finding his mom . Appetite: Noted poor appetite Trauma: Found his mom in her home and due to a recent surgery he had, police began to question him as a suspect before they confirmed with his doctor about surgery. With his brother, found his nephew who had completed suicide by hanging. Noted that he and his brother cut nephew down while waiting on first responders to arrive and then was threatened to be arrested due to tampering with evidence . Arrest me. I've got bail money. I wasn't just going to stand there and watch him hang. As oldest grandson, he had to arrange end of life care and arrangements for his grandma. He also had to act as medical power of health care attorney for his at end of life including signing paperwork to be removed from a ventilator and watching her take her last breath. Noted stressor of not being in contact with his father due to his stepmom preventing Matias and his brother from having contact. Noted that he will occasionally call local police to complete a welfare check on dad. Substance Use (type, last use, amount, frequency, withdrawal symptoms): Denied Gambling/Other Addictive Behaviors: Denied ADLs (Hygiene, Chores, Cooking, Shopping): Denied concerns. Interests/Skills/ Hobbies: I like to travel. Would like to go to [place] to visit grandson. If could afford it, [place] to visit grandson in [place]. I don't really care where I go, I just want to go. Noted that he and his used to travel. Strengths: very caring person. Likes to help others that help themselves. Open to treatment and interventions. Limitations: pessimistic mindset Goal(s) for Therapy: I wanna quit feeling this way. In regards to indifference on living and negative mindset. 06/14/2024 Major depressive disorder, recurrent severe without psychotic features (ICD-10 - F33.2) 1. Mood fluctuations - He reports feeling better overall, with an upward trend in mood. However, he still experiences occasional lows and confusion during those periods. Continue monitoring mood fluctuations and encourage him to track his mood patterns. Plan: - Continue Cognitive Behavioral Therapy (CBT) to help him develop coping strategies for mood fluctuations. - Encourage him to discuss medication adjustments with Dr. Moyer to address the ups and downs and increased anxiety during low periods. 2. Sleep disturbances - He reports improved sleep since starting the new medication. However, he has an upcoming appointment with a veterinary medicine teacher for a sleep study due to concerns about breathing and blood sugar levels during sleep. Plan: - Encourage him to follow through with the sleep study and any recommendations from the veterinary medicine teacher. - Continue monitoring sleep quality and discuss any changes or concerns in future therapy sessions. 3. Anxiety and worry - He continues to struggle with excessive worry, particularly during low mood periods. He has been practicing radical acceptance and focusing on what is within his control. Plan: - Continue to work on CBT techniques for managing anxiety and worry, such as healthier thought patterns and distractions. - Encourage him to discuss any concerns about anxiety with Dr. Moyer, who may consider medication adjustments if necessary. 4. Early setting and self-care - He has made progress in setting boundaries and making time for himself. He has planned a vacation and is working on finding enjoyable activities. Plan: - Continue to encourage him to prioritize self-care and set healthy boundaries with others. - Assist him in identifying and engaging in activities that bring him soham and relaxation. 5. Communication and social support - He has been open with his family about his needs and has received support from his son in attending therapy. Plan: - Encourage him to continue open communication with his support network and to seek help when needed. - Reinforce the importance of maintaining social connections and engaging in activities with friends and family. Follow-up: - Schedule a follow-up appointment in two weeks to continue monitoring progress and addressing any concerns. 06/14/2024 Generalized anxiety disorder (ICD-10 - F41.1) 1. Mood fluctuations - He reports feeling better overall, with an upward trend in mood. However, he still experiences occasional lows and confusion during those periods. Continue monitoring mood fluctuations and encourage him to track his mood patterns. Plan: - Continue Cognitive Behavioral Therapy (CBT) to help him develop coping strategies for mood fluctuations. - Encourage him to discuss medication adjustments with Dr. Moyer to address the ups and downs and increased anxiety during low periods. 2. Sleep disturbances - He reports improved sleep since starting the new medication. However, he has an upcoming appointment with a veterinary medicine teacher for a sleep study due to concerns about breathing and blood sugar levels during sleep. Plan: - Encourage him to follow through with the sleep study and any recommendations from the veterinary medicine teacher. - Continue monitoring sleep quality and discuss any changes or concerns in future therapy sessions. 3. Anxiety and worry - He continues to struggle with excessive worry, particularly during low mood periods. He has been practicing radical acceptance and focusing on what is within his control. Plan: - Continue to work on CBT techniques for managing anxiety and worry, such as healthier thought patterns and distractions. - Encourage him to discuss any concerns about anxiety with Dr. Moyer, who may consider medication adjustments if necessary. 4. Early setting and self-care - He has made progress in setting boundaries and making time for himself. He has planned a vacation and is working on finding enjoyable activities. Plan: - Continue to encourage him to prioritize self-care and set healthy boundaries with others. - Assist him in identifying and engaging in activities that bring him soham and relaxation. 5. Communication and social support - He has been open with his family about his needs and has received support from his son in attending therapy. Plan: - Encourage him to continue open communication with his support network and to seek help when needed. - Reinforce the importance of maintaining social connections and engaging in activities with friends and family. Follow-up: - Schedule a follow-up appointment in two weeks to continue monitoring progress and addressing any concerns. 06/28/2024 Major depressive disorder, recurrent severe without psychotic features (ICD-10 - F33.2) 1. Rapid cycling bipolar disorder: - Patient reports experiencing hypomanic episodes lasting 4-5 days followed by depressive episodes lasting 3-4 days, with minimal time in a stable mood state. - He is currently on Quetiapine and Vilazodone, but symptoms persist. Plan: a. Communicate with Dr. Moyer regarding the patient's current symptoms and concerns about rapid cycling. b. Discuss potential medication adjustments with Dr. Moyer to better manage his mood fluctuations. c. Schedule a follow-up appointment with the patient next week to monitor progress and discuss any changes in treatment. 2. Sleep apnea: - Patient reports a history of sleep apnea and is currently awaiting insurance approval for a new sleep study. Plan: a. Encourage him to continue pursuing the sleep study and explore different CPAP mask options or alternative treatments. b. Monitor his sleep quality and its impact on his mood and overall well-being. 3. Coping strategies for mood fluctuations: - Patient struggles with focus and motivation during depressive episodes. Plan: a. Encourage him to utilize sensory coping strategies, such as cold or sour stimuli, to help improve focus and concentration during depressive episodes. b. Continue to provide support and psychoeducation on managing mood fluctuations and recognizing early warning signs of mood shifts. c. Schedule regular therapy sessions to monitor his progress and provide ongoing support. 4. Family support and communication: - Patient's son is concerned about his well-being and may need guidance on how to best support him during mood fluctuations. Plan: a. Encourage open communication between him and his son about his mental health and needs during mood episodes. b. Provide psychoeducation and resources for his family to better understand and support his mental health journey. 06/28/2024 Generalized anxiety disorder (ICD-10 - F41.1) 1. Rapid cycling bipolar disorder: - Patient reports experiencing hypomanic episodes lasting 4-5 days followed by depressive episodes lasting 3-4 days, with minimal time in a stable mood state. - He is currently on Quetiapine and Vilazodone, but symptoms persist. Plan: a. Communicate with Dr. Moyer regarding the patient's current symptoms and concerns about rapid cycling. b. Discuss potential medication adjustments with Dr. Moyer to better manage his mood fluctuations. c. Schedule a follow-up appointment with the patient next week to monitor progress and discuss any changes in treatment. 2. Sleep apnea: - Patient reports a history of sleep apnea and is currently awaiting insurance approval for a new sleep study. Plan: a. Encourage him to continue pursuing the sleep study and explore different CPAP mask options or alternative treatments. b. Monitor his sleep quality and its impact on his mood and overall well-being. 3. Coping strategies for mood fluctuations: - Patient struggles with focus and motivation during depressive episodes. Plan: a. Encourage him to utilize sensory coping strategies, such as cold or sour stimuli, to help improve focus and concentration during depressive episodes. b. Continue to provide support and psychoeducation on managing mood fluctuations and recognizing early warning signs of mood shifts. c. Schedule regular therapy sessions to monitor his progress and provide ongoing support. 4. Family support and communication: - Patient's son is concerned about his well-being and may need guidance on how to best support him during mood fluctuations. Plan: a. Encourage open communication between him and his son about his mental health and needs during mood episodes. b. Provide psychoeducation and resources for his family to better understand and support his mental health journey. 07/13/2024 Major depressive disorder, recurrent severe without psychotic features (ICD-10 - F33.2) 07/17/2024 Major depressive disorder, recurrent severe without psychotic features (ICD-10 - F33.2) 07/19/2024 Major depressive disorder, recurrent severe without psychotic features (ICD-10 - F33.2) 07/20/2024 Major depressive disorder, recurrent severe without psychotic features (ICD-10 - F33.2) 07/31/2024 Major depressive disorder, recurrent severe without psychotic features (ICD-10 - F33.2) 08/01/2024 Major depressive disorder, recurrent severe without psychotic features (ICD-10 - F33.2) 08/03/2024 Major depressive disorder, recurrent severe without psychotic features (ICD-10 - F33.2) 08/04/2024 Major depressive disorder, recurrent severe without psychotic features (ICD-10 - F33.2) 08/07/2024 Major depressive disorder, recurrent severe without psychotic features (ICD-10 - F33.2) 08/09/2024 Major depressive disorder, recurrent severe without psychotic features (ICD-10 - F33.2) 08/10/2024 Major depressive disorder, recurrent severe without psychotic features (ICD-10 - F33.2) 08/11/2024 Major depressive disorder, recurrent severe without psychotic features (ICD-10 - F33.2) 08/15/2024 Major depressive disorder, recurrent severe without psychotic features (ICD-10 - F33.2) 08/16/2024 Major depressive disorder, recurrent severe without psychotic features (ICD-10 - F33.2) 08/17/2024 Major depressive disorder, recurrent severe without psychotic features (ICD-10 - F33.2) 08/18/2024 Major depressive disorder, recurrent severe without psychotic features (ICD-10 - F33.2) 06/14/2024 Major depressive disorder, recurrent severe without psychotic features (ICD-10 - F33.2) Major Depressive Disorder - Assessment: The patient reports experiencing a roller coaster of emotions, with only three to four good days in the past two weeks. The addition of Rexulti showed some improvement, but not enough to stabilize the patient's mood. - Plan: - Discontinue Rexulti. - Start Quetiapine ER (slow release) to help with anxiety symptoms and sleep. Instruct the patient to take one tablet in the evening, and if there is no improvement by Wednesday, increase to two tablets. - Schedule a follow-up appointment in two weeks. Insomnia - Assessment: The patient reports inconsistent sleep patterns, with some nights only getting two to three hours of sleep. Poor sleep seems to contribute to worsening mood the following day. - Plan: - Start Quetiapine ER (slow release) to help improve sleep quality. - Instruct the patient to take the medication around 5-6 p.m. to allow it to peak before bedtime. Adjust the timing if needed to prevent excessive daytime sleepiness. The patient typically gets home around 5-5:30 p.m. and struggles the most from 5 p.m. to 9 p.m. before going to bed around 9-9:30 p.m. Anxiety - Assessment: The patient experiences increased anxiety and racing thoughts, particularly in the evenings. - Plan: Quetiapine ER (slow release) should help calm the patient's mind and alleviate anxiety symptoms. Monitor the patient's response to the medication and adjust the dose as needed during the follow-up appointment. Medication Management - Assessment: The patient did not fill the Viibryd prescription, as they were unsure if it would be continued. - Plan: Continue Viibryd and instruct the patient to fill the prescription. Psychotherapy - Assessment: The patient has been meeting with therapist Shikha and has another appointment scheduled for Wednesday. - Plan: Encourage the patient to continue attending therapy sessions and coordinate follow-up appointments with the therapist as needed. If the therapist requests to see the patient in a week, schedule both appointments on the same day. Major Depressive Disorder - Assessment: The patient reports an improvement in mood and a decrease in depressive symptoms since the last visit. The patient is currently on an uphill slide and has not experienced suicidal thoughts recently. The patient's sleep has improved since the medication change, now getting approximately 8 hours of sleep per night. The patient is attending therapy with Shikha and finds it helpful. - Plan: - Continue current medications (Vilazodone and Quetiapine). - Send a refill for Vilazodone as the patient may run out in two weeks. - Monitor the patient's mood fluctuations to ensure it is not indicative of bipolar disorder. - Schedule a follow-up appointment in three weeks. - The patient will continue seeing Shikha every two weeks for therapy. Sleep Disturbance - Assessment: The patient reports improved sleep since the medication change, now sleeping around 8 hours per night without racing thoughts. The patient takes Quetiapine at 5 PM and is asleep by 10 PM. - Plan: - Continue Quetiapine as prescribed. - Monitor sleep quality and duration during follow-up appointments. Mood Fluctuations - Assessment: The patient experiences mood fluctuations, with down dips being quite severe. The patient is currently in an up phase, which has lasted for three days. The patient reports that these up phases usually last about a week before dipping again. During up phases, the patient reports talking a mile a minute. - Plan: - Closely monitor the patient's mood fluctuations during follow-up appointments and therapy sessions to determine if there is an underlying bipolar disorder. - No changes to the current treatment plan at this time. - The patient will see Shikha every two weeks and follow up every three weeks to ensure coverage during both up and down phases. 07/05/2024 Major depressive disorder, recurrent severe without psychotic features (ICD-10 - F33.2) Major Depressive Disorder - Assessment: Patient reports depressive symptoms including feeling down, suicidal thoughts, mood fluctuations, and frequent crying during depressive episodes. PHQ-9 score is 17, indicating moderate to severe depression. Patient has a history of positive response to TMS treatment. - Plan: a. Increase Quetiapine ER dose to 100 mg daily to help stabilize mood. b. Proceed with TMS treatment, using the BrainsWay helmet for simultaneous depression and anxiety treatment. c. Monitor patient's mood and response to treatment closely. Anxiety - Assessment: Patient reports ongoing anxiety symptoms. - Plan: a. Proceed with TMS treatment, using the BrainsWay helmet for simultaneous depression and anxiety treatment. b. Monitor patient's anxiety levels and response to treatment closely. Insomnia - Assessment: Patient reports sleeping well currently. - Plan: a. Continue Quetiapine ER at the increased dose of 100 mg daily for sleep and mood stabilization. b. Monitor sleep quality and adjust medications as needed. Diabetes - Assessment: Patient is taking Ozempic, Novolog FlexPen, Lantus insulin, and using Dexcom for glucose monitoring. - Plan: a. Continue current diabetes medications. b. Monitor blood sugar levels closely during TMS treatment, as fluctuations may affect seizure risk. Hypertension - Assessment: Patient is taking Nebivolol 5 mg daily and Benazepril Hydrochlorothiazi de. - Plan: a. Continue current hypertension medications. b. Monitor blood pressure regularly. Gastroesophageal Reflux Disease (GERD) - Assessment: Patient is taking Pantoprazole. - Plan: a. Continue Pantoprazole as prescribed. b. Monitor for any worsening of GERD symptoms. Asthma - Assessment: Patient is using Albuterol inhaler. - Plan: a. Continue Albuterol inhaler as needed for asthma symptoms. b. Monitor asthma control and adjust medications if necessary. Osteoarthritis - Assessment: Patient is taking Meloxicam. - Plan: a. Continue Meloxicam as prescribed. b. Monitor for any worsening of osteoarthritis symptoms. Consent for TMS treatment - Assessment: Patient has been informed about the risks and benefits of TMS treatment, including seizure risk, muscle twitching, and potential for mild headaches. Patient was educated on the differences between BrainsWay helmet and coil-based TMS. - Plan: a. Obtain patient's consent for TMS treatment. b. Monitor patient closely during TMS treatment for any adverse effects or complications. Medication refills - Assessment: Patient requires refills for Lurasidone (90-day prescription), Tiagabine (prescription on May 31), and is currently taking Venlafaxine 40 mg and Quetiapine ER 50 mg. - Plan: a. Refill medications as needed. b. Monitor patient's response to medications and adjust doses as necessary. 08/04/2024 Major depressive disorder, recurrent severe without psychotic features (ICD-10 - F33.2) Major Depressive Disorder - Assessment: Patient reports improvement in mood and no recent episodes of low lows for 2-3 weeks. PHQ-9 score is 5, indicating minimal depression. Patient is currently undergoing TMS treatment and has completed 11 sessions so far, which seems to be helping. - Plan: a. Continue TMS treatment as scheduled. b. Encourage the patient to maintain coping strategies learned from Shikha. c. Monitor the patient's mood and depressive symptoms closely. Medication Management - Assessment: Patient is currently on vilazodone 40 mg and quetiapine ER 50 mg (two tablets at night). Patient reports needing a refill for quetiapine. Vilazodone was last filled on June 14 and is sufficient until September 14. - Plan: a. Refill quetiapine ER prescription as requested. b. Continue vilazodone 40 mg as prescribed, with no need for a refill at this time. c. Monitor for any side effects or changes in the patient's response to medications. Grief and Loss - Assessment: Patient acknowledges the loss of his as a trigger for his depressive symptoms. Patient is using coping strategies to manage grief and maintain daily activities. Patient reports making efforts to stay busy and do something when feeling down. - Plan: a. Encourage the patient to continue using coping strategies and staying active. b. Consider referral to a grief counselor or support group if needed. c. Monitor the patient's progress in managing grief and its impact on his mental health. TMS Treatment - Assessment: Patient experienced dizziness once when TMS intensity was increased without warning. No other side effects reported from TMS treatment. - Plan: a. Continue TMS treatment as scheduled. b. Ensure proper communication about intensity changes during TMS sessions. c. Monitor for any side effects or adverse reactions to TMS treatment. 08/18/2024 Major depressive disorder, recurrent severe without psychotic features (ICD-10 - F33.2) Major Depressive Disorder, in remission - Assessment: Patient reports improvement in mood and depression symptoms after 20 TMS treatments. Patient experiences brief periods (an hour or two) of feeling low but is able to work through it. - Plan: - Continue TMS for a total of 36 treatments. - Continue vilazodone 40 mg daily for mood stabilization. Anxiety and Panic - Assessment: Patient denies any current anxiety or panic symptoms. - Plan: - No changes in treatment are needed at this time. Sleep disturbance - Assessment: Not explicitly mentioned. - Plan: - Continue quetiapine at two tablets at bedtime for sleep regulation. Psychotherapy - Assessment: Patient is currently seeing Shikha for counseling. - Plan: - Coordinate with Jennifer to schedule a continuation of care with Flavia or another therapist once Shikha's sessions are completed. Medication management - Assessment: Current medication regimen appears to be effective. - Plan: - No new prescriptions are needed at this time. - Continue monitoring the patient's response to the current medication regimen. Follow-up - Plan: - Schedule a follow-up appointment to assess the patient's progress and response to TMS treatments and medication management. 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 Major Depressive Disorder - Patient reports a lack of good days over the past 2-3 weeks, indicating worsening depressive symptoms. - Struggles with motivation and pervasive feelings of hopelessness are evident. - Adherence to prescribed medications is noted, though the patient is not working this week. - A gap in TMS treatment since the last visit is reported, with the patient awaiting a response from Jennifer regarding TMS. - Plan: - Initiate contact with Jennifer to check on the status of TMS treatment. - Consult with medical device about prescription refill to ensure no lapses in medication. - Motivate the patient to persist in engaging in activities and making plans despite difficulties. - Arrange a follow-up appointment to assess progress and modify treatment plans as necessary. 2. Sleep Apnea - Improvement in sleep quality since initiating CPAP therapy is reported by the patient. - Plan: - Reinforce the importance of consistent CPAP use as prescribed. - Continue to track sleep quality and observe for any symptom changes. 3. Diabetes - The patient describes fluctuations in blood sugar levels, potentially impacting mood. - Plan: - Encourage ongoing blood sugar monitoring and appropriate insulin use. - Suggest a discussion with the patient's primary care provider about possible diabetes management adjustments. 4. Cardiac Concerns - A 50% blockage in one carotid artery and abnormal heart rhythms have been reported by the patient. - An upcoming rag baler appointment is awaited by the patient. - Plan: - Support the patient in scheduling and attending the rag baler appointment. - Keep an eye on any symptom changes or new cardiac-related concerns. 5. Work-related Stress - The patient reports experiencing micromanagement and unfair treatment at work, contributing to stress and a negative mood. - Plan: - Advise the patient to identify coping strategies for managing work-related stress. - Consider the inclusion of work-related stress discussions in future therapy sessions to develop effective coping mechanisms. 09/25/2024 Generalized anxiety disorder (ICD-10 - F41.1) 1. Major Depressive Disorder - Patient reports a lack of good days over the past 2-3 weeks, indicating worsening depressive symptoms. - Struggles with motivation and pervasive feelings of hopelessness are evident. - Adherence to prescribed medications is noted, though the patient is not working this week. - A gap in TMS treatment since the last visit is reported, with the patient awaiting a response from Jennifer regarding TMS. - Plan: - Initiate contact with Jennifer to check on the status of TMS treatment. - Consult with medical device about prescription refill to ensure no lapses in medication. - Motivate the patient to persist in engaging in activities and making plans despite difficulties. - Arrange a follow-up appointment to assess progress and modify treatment plans as necessary. 2. Sleep Apnea - Improvement in sleep quality since initiating CPAP therapy is reported by the patient. - Plan: - Reinforce the importance of consistent CPAP use as prescribed. - Continue to track sleep quality and observe for any symptom changes. 3. Diabetes - The patient describes fluctuations in blood sugar levels, potentially impacting mood. - Plan: - Encourage ongoing blood sugar monitoring and appropriate insulin use. - Suggest a discussion with the patient's primary care provider about possible diabetes management adjustments. 4. Cardiac Concerns - A 50% blockage in one carotid artery and abnormal heart rhythms have been reported by the patient. - An upcoming rag baler appointment is awaited by the patient. - Plan: - Support the patient in scheduling and attending the rag baler appointment. - Keep an eye on any symptom changes or new cardiac-related concerns. 5. Work-related Stress - The patient reports experiencing micromanagement and unfair treatment at work, contributing to stress and a negative mood. - Plan: - Advise the patient to identify coping strategies for managing work-related stress. - Consider the inclusion of work-related stress discussions in future therapy sessions to develop effective coping mechanisms. 09/25/2024 Major depressive disorder, recurrent severe without psychotic features (ICD-10 - F33.2) 09/11/2024 Major depressive disorder, recurrent severe without psychotic features (ICD-10 - F33.2) 1. Major Depressive Disorder - Continue current medications and closely monitor their effectiveness. - Encourage the patient to maintain open communication with his son for emotional support. - Schedule a follow-up appointment in two weeks to evaluate progress and potentially adjust treatment. - The patient is scheduled to see Flavia at the end of the month for additional support. 2. Grief and Loss - Encourage the patient to openly discuss feelings of grief during therapy sessions. - Consider referring the patient to a grief support group if deemed beneficial. 3. Frequent Falls - The patient will undergo a Holter monitor test for 30 days to assess cardiac function. - A carotid artery ultrasound will be performed to check for vascular issues. - Encourage the patient to discuss the potential use of a cane with his primary care physician for better stability and fall prevention. 4. Sleep Apnea - Encourage the patient to consistently use the CPAP machine and adhere to proper maintenance and cleaning. - Note the reported improvement in sleep quality since using the CPAP machine. 5. Diabetes Management - Continue to monitor blood sugar levels and medication adherence. - Encourage the patient to maintain a healthy diet and regular exercise routine. - The patient's son assists with medication and insulin shot administration. 6. Transcranial Magnetic Stimulation (TMS) Treatment - The patient has reached the maximum number of TMS sessions covered by insurance. - Dr. Moyer is exploring the possibility of insurance coverage for additional TMS sessions. - Discuss alternative treatment options, such as Spravato or a polyvagal nerve stimulator implant, if further TMS sessions are not covered. 09/11/2024 Generalized anxiety disorder (ICD-10 - F41.1) 1. Major Depressive Disorder - Continue current medications and closely monitor their effectiveness. - Encourage the patient to maintain open communication with his son for emotional support. - Schedule a follow-up appointment in two weeks to evaluate progress and potentially adjust treatment. - The patient is scheduled to see Flavia at the end of the month for additional support. 2. Grief and Loss - Encourage the patient to openly discuss feelings of grief during therapy sessions. - Consider referring the patient to a grief support group if deemed beneficial. 3. Frequent Falls - The patient will undergo a Holter monitor test for 30 days to assess cardiac function. - A carotid artery ultrasound will be performed to check for vascular issues. - Encourage the patient to discuss the potential use of a cane with his primary care physician for better stability and fall prevention. 4. Sleep Apnea - Encourage the patient to consistently use the CPAP machine and adhere to proper maintenance and cleaning. - Note the reported improvement in sleep quality since using the CPAP machine. 5. Diabetes Management - Continue to monitor blood sugar levels and medication adherence. - Encourage the patient to maintain a healthy diet and regular exercise routine. - The patient's son assists with medication and insulin shot administration. 6. Transcranial Magnetic Stimulation (TMS) Treatment - The patient has reached the maximum number of TMS sessions covered by insurance. - Dr. Moyer is exploring the possibility of insurance coverage for additional TMS sessions. - Discuss alternative treatment options, such as Spravato or a polyvagal nerve stimulator implant, if further TMS sessions are not covered. 08/04/2024 Major depressive disorder, recurrent severe without psychotic features (ICD-10 - F33.2) 1. Post-surgical Recovery (Shoulder Surgery) - Acknowledge the patient's improved range of motion post-surgery and initiation of physical therapy. - Advise the continuation of prescribed physical therapy exercises twice daily to avert stiffness and sustain recovery. 2. Anxiety and Depressive Symptoms - Note the patient's report of reduced instances of self-calming and enhanced mood. - Monitor the effectiveness of TMS treatment, addressing side effects like dizziness by recommending the patient to sit momentarily post-session. - Maintain the current medication regimen, observing any mood or anxiety fluctuations. - Promote cognitive-behavio ral strategies, including self-talk and behavioral activation, for symptom management. 3. Sleep Apnea - Highlight the scheduled sleep apnea evaluation. - Ensure the patient's attendance at the evaluation and adherence to subsequent recommendations. 4. Work-related Stress - Document the patient's high stress levels due to work, including overtime and policy changes. - Suggest discussing therapy session timing with the employer to prevent short-term disability and enhance work-life balance. - Recommend stress management techniques such as deep breathing, mindfulness, and boundary setting in the workplace. 5. [facility] Planning - Discuss the patient's correction considerations and financial concerns. - Encourage exploration of part-time employment and financial planning resources for correction preparation. Follow-up: - Arrange a follow-up appointment in one month to review the patient's progress and address any emerging issues. - Advise the patient to seek immediate clinic support or assistance if needed before the next appointment. 08/04/2024 Generalized anxiety disorder (ICD-10 - F41.1) 1. Post-surgical Recovery (Shoulder Surgery) - Acknowledge the patient's improved range of motion post-surgery and initiation of physical therapy. - Advise the continuation of prescribed physical therapy exercises twice daily to avert stiffness and sustain recovery. 2. Anxiety and Depressive Symptoms - Note the patient's report of reduced instances of self-calming and enhanced mood. - Monitor the effectiveness of TMS treatment, addressing side effects like dizziness by recommending the patient to sit momentarily post-session. - Maintain the current medication regimen, observing any mood or anxiety fluctuations. - Promote cognitive-behavio ral strategies, including self-talk and behavioral activation, for symptom management. 3. Sleep Apnea - Highlight the scheduled sleep apnea evaluation. - Ensure the patient's attendance at the evaluation and adherence to subsequent recommendations. 4. Work-related Stress - Document the patient's high stress levels due to work, including overtime and policy changes. - Suggest discussing therapy session timing with the employer to prevent short-term disability and enhance work-life balance. - Recommend stress management techniques such as deep breathing, mindfulness, and boundary setting in the workplace. 5. [facility] Planning - Discuss the patient's correction considerations and financial concerns. - Encourage exploration of part-time employment and financial planning resources for correction preparation. Follow-up: - Arrange a follow-up appointment in one month to review the patient's progress and address any emerging issues. - Advise the patient to seek immediate clinic support or assistance if needed before the next appointment. 07/27/2024 Major depressive disorder, recurrent severe without psychotic features (ICD-10 - F33.2) 07/26/2024 Major depressive disorder, recurrent severe without psychotic features (ICD-10 - F33.2) 07/25/2024 Major depressive disorder, recurrent severe without psychotic features (ICD-10 - F33.2) 07/24/2024 Major depressive disorder, recurrent severe without psychotic features (ICD-10 - F33.2) 04/13/2024 Type 1 diabetes mellitus without complications (ICD-10 - E10.9) Major Depressive Disorder, recurrent, severe - Assessment: Patient reports worsening depression and mood swings over the past six months, with periods of feeling better off but no active suicidal ideation. Patient has been off medications for two years and has not been receiving any treatment for depression. - Plan: - Start vilazodone (Viibryd) 20 mg: half tablet once daily for seven days, then one tablet once daily. - Schedule follow-up appointment in two weeks to assess response to medication and adjust treatment plan as needed. - Instruct patient to contact the clinic if suicidal thoughts worsen or if there are any concerns about medication side effects. Insomnia - Assessment: Patient reports difficulty sleeping, tossing and turning, and racing thoughts at night. - Plan: - Monitor sleep quality during follow-up appointments and assess the impact of vilazodone on sleep. - Consider additional interventions for insomnia if sleep does not improve with the treatment of depression. Grief and loss - Assessment: Patient's prior to the initiation of TMS treatment. - Plan: - Continue to monitor the patient's emotional well-being and provide support during follow-up appointments. - Consider referral to a grief counselor or support group if needed. Medication adherence - Assessment: Patient discontinued medications on their own, believing they no longer needed them. - Plan: - Educate the patient on the importance of medication adherence and the potential risks of discontinuing treatment without medical supervision. - Encourage open communication about any concerns or side effects related to medications during follow-up appointments. 08/04/2024 Post-traumatic stress disorder, chronic (ICD-10 - F43.12) 1. Post-surgical Recovery (Shoulder Surgery) - Acknowledge the patient's improved range of motion post-surgery and initiation of physical therapy. - Advise the continuation of prescribed physical therapy exercises twice daily to avert stiffness and sustain recovery. 2. Anxiety and Depressive Symptoms - Note the patient's report of reduced instances of self-calming and enhanced mood. - Monitor the effectiveness of TMS treatment, addressing side effects like dizziness by recommending the patient to sit momentarily post-session. - Maintain the current medication regimen, observing any mood or anxiety fluctuations. - Promote cognitive-behavio ral strategies, including self-talk and behavioral activation, for symptom management. 3. Sleep Apnea - Highlight the scheduled sleep apnea evaluation. - Ensure the patient's attendance at the evaluation and adherence to subsequent recommendations. 4. Work-related Stress - Document the patient's high stress levels due to work, including overtime and policy changes. - Suggest discussing therapy session timing with the employer to prevent short-term disability and enhance work-life balance. - Recommend stress management techniques such as deep breathing, mindfulness, and boundary setting in the workplace. 5. [facility] Planning - Discuss the patient's correction considerations and financial concerns. - Encourage exploration of part-time employment and financial planning resources for correction preparation. Follow-up: - Arrange a follow-up appointment in one month to review the patient's progress and address any emerging issues. - Advise the patient to seek immediate clinic support or assistance if needed before the next appointment. 09/11/2024 Post-traumatic stress disorder, chronic (ICD-10 - F43.12) 1. Major Depressive Disorder - Continue current medications and closely monitor their effectiveness. - Encourage the patient to maintain open communication with his son for emotional support. - Schedule a follow-up appointment in two weeks to evaluate progress and potentially adjust treatment. - The patient is scheduled to see Flavia at the end of the month for additional support. 2. Grief and Loss - Encourage the patient to openly discuss feelings of grief during therapy sessions. - Consider referring the patient to a grief support group if deemed beneficial. 3. Frequent Falls - The patient will undergo a Holter monitor test for 30 days to assess cardiac function. - A carotid artery ultrasound will be performed to check for vascular issues. - Encourage the patient to discuss the potential use of a cane with his primary care physician for better stability and fall prevention. 4. Sleep Apnea - Encourage the patient to consistently use the CPAP machine and adhere to proper maintenance and cleaning. - Note the reported improvement in sleep quality since using the CPAP machine. 5. Diabetes Management - Continue to monitor blood sugar levels and medication adherence. - Encourage the patient to maintain a healthy diet and regular exercise routine. - The patient's son assists with medication and insulin shot administration. 6. Transcranial Magnetic Stimulation (TMS) Treatment - The patient has reached the maximum number of TMS sessions covered by insurance. - Dr. Moyer is exploring the possibility of insurance coverage for additional TMS sessions. - Discuss alternative treatment options, such as Spravato or a polyvagal nerve stimulator implant, if further TMS sessions are not covered. 09/25/2024 Post-traumatic stress disorder, chronic (ICD-10 - F43.12) 1. Major Depressive Disorder - Patient reports a lack of good days over the past 2-3 weeks, indicating worsening depressive symptoms. - Struggles with motivation and pervasive feelings of hopelessness are evident. - Adherence to prescribed medications is noted, though the patient is not working this week. - A gap in TMS treatment since the last visit is reported, with the patient awaiting a response from Jennifer regarding TMS. - Plan: - Initiate contact with Jennifer to check on the status of TMS treatment. - Consult with medical device about prescription refill to ensure no lapses in medication. - Motivate the patient to persist in engaging in activities and making plans despite difficulties. - Arrange a follow-up appointment to assess progress and modify treatment plans as necessary. 2. Sleep Apnea - Improvement in sleep quality since initiating CPAP therapy is reported by the patient. - Plan: - Reinforce the importance of consistent CPAP use as prescribed. - Continue to track sleep quality and observe for any symptom changes. 3. Diabetes - The patient describes fluctuations in blood sugar levels, potentially impacting mood. - Plan: - Encourage ongoing blood sugar monitoring and appropriate insulin use. - Suggest a discussion with the patient's primary care provider about possible diabetes management adjustments. 4. Cardiac Concerns - A 50% blockage in one carotid artery and abnormal heart rhythms have been reported by the patient. - An upcoming rag baler appointment is awaited by the patient. - Plan: - Support the patient in scheduling and attending the rag baler appointment. - Keep an eye on any symptom changes or new cardiac-related concerns. 5. Work-related Stress - The patient reports experiencing micromanagement and unfair treatment at work, contributing to stress and a negative mood. - Plan: - Advise the patient to identify coping strategies for managing work-related stress. - Consider the inclusion of work-related stress discussions in future therapy sessions to develop effective coping mechanisms. 08/18/2024 Generalized anxiety disorder (ICD-10 - F41.1) Learning About Generalized Anxiety Disorder material was published, Generalized Anxiety Disorder: Care Instructions material was published Major Depressive Disorder, in remission - Assessment: Patient reports improvement in mood and depression symptoms after 20 TMS treatments. Patient experiences brief periods (an hour or two) of feeling low but is able to work through it. - Plan: - Continue TMS for a total of 36 treatments. - Continue vilazodone 40 mg daily for mood stabilization. Anxiety and Panic - Assessment: Patient denies any current anxiety or panic symptoms. - Plan: - No changes in treatment are needed at this time. Sleep disturbance - Assessment: Not explicitly mentioned. - Plan: - Continue quetiapine at two tablets at bedtime for sleep regulation. Psychotherapy - Assessment: Patient is currently seeing Shikha for counseling. - Plan: - Coordinate with Jennifer to schedule a continuation of care with Flavia or another therapist once Shikha's sessions are completed. Medication management - Assessment: Current medication regimen appears to be effective. - Plan: - No new prescriptions are needed at this time. - Continue monitoring the patient's response to the current medication regimen. Follow-up - Plan: - Schedule a follow-up appointment to assess the patient's progress and response to TMS treatments and medication management. 08/04/2024 Generalized anxiety disorder (ICD-10 - F41.1) Learning About Generalized Anxiety Disorder material was published, Generalized Anxiety Disorder: Care Instructions material was published Major Depressive Disorder - Assessment: Patient reports improvement in mood and no recent episodes of low lows for 2-3 weeks. PHQ-9 score is 5, indicating minimal depression. Patient is currently undergoing TMS treatment and has completed 11 sessions so far, which seems to be helping. - Plan: a. Continue TMS treatment as scheduled. b. Encourage the patient to maintain coping strategies learned from Shikha. c. Monitor the patient's mood and depressive symptoms closely. Medication Management - Assessment: Patient is currently on vilazodone 40 mg and quetiapine ER 50 mg (two tablets at night). Patient reports needing a refill for quetiapine. Vilazodone was last filled on June 14 and is sufficient until September 14. - Plan: a. Refill quetiapine ER prescription as requested. b. Continue vilazodone 40 mg as prescribed, with no need for a refill at this time. c. Monitor for any side effects or changes in the patient's response to medications. Grief and Loss - Assessment: Patient acknowledges the loss of his as a trigger for his depressive symptoms. Patient is using coping strategies to manage grief and maintain daily activities. Patient reports making efforts to stay busy and do something when feeling down. - Plan: a. Encourage the patient to continue using coping strategies and staying active. b. Consider referral to a grief counselor or support group if needed. c. Monitor the patient's progress in managing grief and its impact on his mental health. TMS Treatment - Assessment: Patient experienced dizziness once when TMS intensity was increased without warning. No other side effects reported from TMS treatment. - Plan: a. Continue TMS treatment as scheduled. b. Ensure proper communication about intensity changes during TMS sessions. c. Monitor for any side effects or adverse reactions to TMS treatment. 07/05/2024 Generalized anxiety disorder (ICD-10 - F41.1) Learning About Generalized Anxiety Disorder material was published, Generalized Anxiety Disorder: Care Instructions material was published Major Depressive Disorder - Assessment: Patient reports depressive symptoms including feeling down, suicidal thoughts, mood fluctuations, and frequent crying during depressive episodes. PHQ-9 score is 17, indicating moderate to severe depression. Patient has a history of positive response to TMS treatment. - Plan: a. Increase Quetiapine ER dose to 100 mg daily to help stabilize mood. b. Proceed with TMS treatment, using the [employer] helmet for simultaneous depression and anxiety treatment. c. Monitor patient's mood and response to treatment closely. Anxiety - Assessment: Patient reports ongoing anxiety symptoms. - Plan: a. Proceed with TMS treatment, using the [employer] helmet for simultaneous depression and anxiety treatment. b. Monitor patient's anxiety levels and response to treatment closely. Insomnia - Assessment: Patient reports sleeping well currently. - Plan: a. Continue Quetiapine ER at the increased dose of 100 mg daily for sleep and mood stabilization. b. Monitor sleep quality and adjust medications as needed. Diabetes - Assessment: Patient is taking Ozempic, Novolog FlexPen, Lantus insulin, and using Dexcom for glucose monitoring. - Plan: a. Continue current diabetes medications. b. Monitor blood sugar levels closely during TMS treatment, as fluctuations may affect seizure risk. Hypertension - Assessment: Patient is taking Nebivolol 5 mg daily and Benazepril Hydrochlorothiazi de. - Plan: a. Continue current hypertension medications. b. Monitor blood pressure regularly. Gastroesophageal Reflux Disease (GERD) - Assessment: Patient is taking Pantoprazole. - Plan: a. Continue Pantoprazole as prescribed. b. Monitor for any worsening of GERD symptoms. Asthma - Assessment: Patient is using Albuterol inhaler. - Plan: a. Continue Albuterol inhaler as needed for asthma symptoms. b. Monitor asthma control and adjust medications if necessary. Osteoarthritis - Assessment: Patient is taking Meloxicam. - Plan: a. Continue Meloxicam as prescribed. b. Monitor for any worsening of osteoarthritis symptoms. Consent for TMS treatment - Assessment: Patient has been informed about the risks and benefits of TMS treatment, including seizure risk, muscle twitching, and potential for mild headaches. Patient was educated on the differences between Bra[employer]Way helmet and coil-based TMS. - Plan: a. Obtain patient's consent for TMS treatment. b. Monitor patient closely during TMS treatment for any adverse effects or complications. Medication refills - Assessment: Patient requires refills for Lurasidone (90-day prescription), Tiagabine (prescription on May 31), and is currently taking Venlafaxine 40 mg and Quetiapine ER 50 mg. - Plan: a. Refill medications as needed. b. Monitor patient's response to medications and adjust doses as necessary. 06/14/2024 Generalized anxiety disorder (ICD-10 - F41.1) Learning About Generalized Anxiety Disorder material was published, Generalized Anxiety Disorder: Care Instructions material was published Major Depressive Disorder - Assessment: The patient reports experiencing a roller coaster of emotions, with only three to four good days in the past two weeks. The addition of Rexulti showed some improvement, but not enough to stabilize the patient's mood. - Plan: - Discontinue Rexulti. - Start Quetiapine ER (slow release) to help with anxiety symptoms and sleep. Instruct the patient to take one tablet in the evening, and if there is no improvement by Wednesday, increase to two tablets. - Schedule a follow-up appointment in two weeks. Insomnia - Assessment: The patient reports inconsistent sleep patterns, with some nights only getting two to three hours of sleep. Poor sleep seems to contribute to worsening mood the following day. - Plan: - Start Quetiapine ER (slow release) to help improve sleep quality. - Instruct the patient to take the medication around 5-6 p.m. to allow it to peak before bedtime. Adjust the timing if needed to prevent excessive daytime sleepiness. The patient typically gets home around 5-5:30 p.m. and struggles the most from 5 p.m. to 9 p.m. before going to bed around 9-9:30 p.m. Anxiety - Assessment: The patient experiences increased anxiety and racing thoughts, particularly in the evenings. - Plan: Quetiapine ER (slow release) should help calm the patient's mind and alleviate anxiety symptoms. Monitor the patient's response to the medication and adjust the dose as needed during the follow-up appointment. Medication Management - Assessment: The patient did not fill the Viibryd prescription, as they were unsure if it would be continued. - Plan: Continue Viibryd and instruct the patient to fill the prescription. Psychotherapy - Assessment: The patient has been meeting with therapist Shikha and has another appointment scheduled for Wednesday. - Plan: Encourage the patient to continue attending therapy sessions and coordinate follow-up appointments with the therapist as needed. If the therapist requests to see the patient in a week, schedule both appointments on the same day. Major Depressive Disorder - Assessment: The patient reports an improvement in mood and a decrease in depressive symptoms since the last visit. The patient is currently on an uphill slide and has not experienced suicidal thoughts recently. The patient's sleep has improved since the medication change, now getting approximately 8 hours of sleep per night. The patient is attending therapy with Shikha and finds it helpful. - Plan: - Continue current medications (Vilazodone and Quetiapine). - Send a refill for Vilazodone as the patient may run out in two weeks. - Monitor the patient's mood fluctuations to ensure it is not indicative of bipolar disorder. - Schedule a follow-up appointment in three weeks. - The patient will continue seeing Shikha every two weeks for therapy. Sleep Disturbance - Assessment: The patient reports improved sleep since the medication change, now sleeping around 8 hours per night without racing thoughts. The patient takes Quetiapine at 5 PM and is asleep by 10 PM. - Plan: - Continue Quetiapine as prescribed. - Monitor sleep quality and duration during follow-up appointments. Mood Fluctuations - Assessment: The patient experiences mood fluctuations, with down dips being quite severe. The patient is currently in an up phase, which has lasted for three days. The patient reports that these up phases usually last about a week before dipping again. During up phases, the patient reports talking a mile a minute. - Plan: - Closely monitor the patient's mood fluctuations during follow-up appointments and therapy sessions to determine if there is an underlying bipolar disorder. - No changes to the current treatment plan at this time. - The patient will see Shikha every two weeks and follow up every three weeks to ensure coverage during both up and down phases. 06/28/2024 Post-traumatic stress disorder, chronic (ICD-10 - F43.12) 1. Rapid cycling bipolar disorder: - Patient reports experiencing hypomanic episodes lasting 4-5 days followed by depressive episodes lasting 3-4 days, with minimal time in a stable mood state. - He is currently on Quetiapine and Vilazodone, but symptoms persist. Plan: a. Communicate with Dr. Moyer regarding the patient's current symptoms and concerns about rapid cycling. b. Discuss potential medication adjustments with Dr. Moyer to better manage his mood fluctuations. c. Schedule a follow-up appointment with the patient next week to monitor progress and discuss any changes in treatment. 2. Sleep apnea: - Patient reports a history of sleep apnea and is currently awaiting insurance approval for a new sleep study. Plan: a. Encourage him to continue pursuing the sleep study and explore different CPAP mask options or alternative treatments. b. Monitor his sleep quality and its impact on his mood and overall well-being. 3. Coping strategies for mood fluctuations: - Patient struggles with focus and motivation during depressive episodes. Plan: a. Encourage him to utilize sensory coping strategies, such as cold or sour stimuli, to help improve focus and concentration during depressive episodes. b. Continue to provide support and psychoeducation on managing mood fluctuations and recognizing early warning signs of mood shifts. c. Schedule regular therapy sessions to monitor his progress and provide ongoing support. 4. Family support and communication: - Patient's son is concerned about his well-being and may need guidance on how to best support him during mood fluctuations. Plan: a. Encourage open communication between him and his son about his mental health and needs during mood episodes. b. Provide psychoeducation and resources for his family to better understand and support his mental health journey. 06/14/2024 Post-traumatic stress disorder, chronic (ICD-10 - F43.12) 1. Mood fluctuations - He reports feeling better overall, with an upward trend in mood. However, he still experiences occasional lows and confusion during those periods. Continue monitoring mood fluctuations and encourage him to track his mood patterns. Plan: - Continue Cognitive Behavioral Therapy (CBT) to help him develop coping strategies for mood fluctuations. - Encourage him to discuss medication adjustments with Dr. Moyer to address the ups and downs and increased anxiety during low periods. 2. Sleep disturbances - He reports improved sleep since starting the new medication. However, he has an upcoming appointment with a veterinary medicine teacher for a sleep study due to concerns about breathing and blood sugar levels during sleep. Plan: - Encourage him to follow through with the sleep study and any recommendations from the veterinary medicine teacher. - Continue monitoring sleep quality and discuss any changes or concerns in future therapy sessions. 3. Anxiety and worry - He continues to struggle with excessive worry, particularly during low mood periods. He has been practicing radical acceptance and focusing on what is within his control. Plan: - Continue to work on CBT techniques for managing anxiety and worry, such as healthier thought patterns and distractions. - Encourage him to discuss any concerns about anxiety with Dr. Moyer, who may consider medication adjustments if necessary. 4. Early setting and self-care - He has made progress in setting boundaries and making time for himself. He has planned a vacation and is working on finding enjoyable activities. Plan: - Continue to encourage him to prioritize self-care and set healthy boundaries with others. - Assist him in identifying and engaging in activities that bring him soham and relaxation. 5. Communication and social support - He has been open with his family about his needs and has received support from his son in attending therapy. Plan: - Encourage him to continue open communication with his support network and to seek help when needed. - Reinforce the importance of maintaining social connections and engaging in activities with friends and family. Follow-up: - Schedule a follow-up appointment in two weeks to continue monitoring progress and addressing any concerns. 06/06/2024 Post-traumatic stress disorder, chronic (ICD-10 - F43.12) Preferred name: Matias Pronouns: he/him Sexual Orientation: straight Marital Status: , was for 32 years. Living Arrangement: son lives with him Children: 5 children, 4 daughters and 1 son. 15 grandchildren. 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 Suicidal Ideation/Self Harm: Noted passive SI. States that he is indifferent on if he lives or dies, if he wakes up or doesn't. Denies wanting to harm self though reports it scares him to have this mindset. Homicidal Ideation: Denied Access to Means (firearms, stockpiled medication, etc): Denied Chief Complaint: I'm depressed about my passing away 3 years ago. Anxiety: tired of worrying about everything and everybody. Noted difficulty controlling worry and racing thoughts. States that these thoughts often prevent him from sleeping. Irritability. GAD7 score of 14 Depression: Loneliness. Grief and loss. PHQ9 score of 18. Poor sleep and appetite. Pessimistic attitude. I'd be okay if I didn't wake up. Noted that he feels like he hates everything and that scares him. That's no way to live life. Anger/Aggression: my son says I get angry at the drop of a hat. Yelling. Denied physical aggression. Obsessions/Compul sions: Denied Carrie: Denied Psychosis: Denied Sleep: Terrible Average of 2-3 hours of sleep a night. Can't stay asleep, will wake after 2-3 hours but has trouble falling back asleep. Will toss and turn. Noted nightmares of reliving his 's end of life and finding his mom . Appetite: Noted poor appetite Trauma: Found his mom in her home and due to a recent surgery he had, police began to question him as a suspect before they confirmed with his doctor about surgery. With his brother, found his nephew who had completed suicide by hanging. Noted that he and his brother cut nephew down while waiting on first responders to arrive and then was threatened to be arrested due to tampering with evidence . Arrest me. I've got bail money. I wasn't just going to stand there and watch him hang. As oldest grandson, he had to arrange end of life care and arrangements for his grandma. He also had to act as medical power of health care attorney for his at end of life including signing paperwork to be removed from a ventilator and watching her take her last breath. Noted stressor of not being in contact with his father due to his stepmom preventing Matias and his brother from having contact. Noted that he will occasionally call local police to complete a welfare check on dad. Substance Use (type, last use, amount, frequency, withdrawal symptoms): Denied Gambling/Other Addictive Behaviors: Denied ADLs (Hygiene, Chores, Cooking, Shopping): Denied concerns. Interests/Skills/ Hobbies: I like to travel. Would like to go to [place] to visit grandson. If could afford it, [place] to visit grandson in [place]. I don't really care where I go, I just want to go. Noted that he and his used to travel. Strengths: very caring person. Likes to help others that help themselves. Open to treatment and interventions. Limitations: pessimistic mindset Goal(s) for Therapy: I wanna quit feeling this way. In regards to indifference on living and negative mindset. 06/02/2024 Post-traumatic stress disorder, chronic (ICD-10 - F43.12) Preferred name: Matias Pronouns: he/him Sexual Orientation: straight Marital Status: , was for 32 years. Living Arrangement: son lives with him Children: 5 children, 4 daughters and 1 son. 15 grandchildren. 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 Suicidal Ideation/Self Harm: Noted passive SI. States that he is indifferent on if he lives or dies, if he wakes up or doesn't. Denies wanting to harm self though reports it scares him to have this mindset. Homicidal Ideation: Denied Access to Means (firearms, stockpiled medication, etc): Denied Chief Complaint: I'm depressed about my passing away 3 years ago. Anxiety: tired of worrying about everything and everybody. Noted difficulty controlling worry and racing thoughts. States that these thoughts often prevent him from sleeping. Irritability. GAD7 score of 14 Depression: Loneliness. Grief and loss. PHQ9 score of 18. Poor sleep and appetite. Pessimistic attitude. I'd be okay if I didn't wake up. Noted that he feels like he hates everything and that scares him. That's no way to live life. Anger/Aggression: my son says I get angry at the drop of a hat. Yelling. Denied physical aggression. Obsessions/Compul sions: Denied Carrie: Denied Psychosis: Denied Sleep: Terrible Average of 2-3 hours of sleep a night. Can't stay asleep, will wake after 2-3 hours but has trouble falling back asleep. Will toss and turn. Noted nightmares of reliving his 's end of life and finding his mom . Appetite: Noted poor appetite Trauma: Found his mom in her home and due to a recent surgery he had, police began to question him as a suspect before they confirmed with his doctor about surgery. With his brother, found his nephew who had completed suicide by hanging. Noted that he and his brother cut nephew down while waiting on first responders to arrive and then was threatened to be arrested due to tampering with evidence . Arrest me. I've got bail money. I wasn't just going to stand there and watch him hang. As oldest grandson, he had to arrange end of life care and arrangements for his grandma. He also had to act as medical power of health care attorney for his at end of life including signing paperwork to be removed from a ventilator and watching her take her last breath. Noted stressor of not being in contact with his father due to his stepmom preventing Matias and his brother from having contact. Noted that he will occasionally call local police to complete a welfare check on dad. Substance Use (type, last use, amount, frequency, withdrawal symptoms): Denied Gambling/Other Addictive Behaviors: Denied ADLs (Hygiene, Chores, Cooking, Shopping): Denied concerns. Interests/Skills/ Hobbies: I like to travel. Would like to go to [place] to visit grandson. If could afford it, [place] to visit grandson in [place]. I don't really care where I go, I just want to go. Noted that he and his used to travel. Strengths: very caring person. Likes to help others that help themselves. Open to treatment and interventions. Limitations: pessimistic mindset Goal(s) for Therapy: I wanna quit feeling this way. In regards to indifference on living and negative mindset. 05/31/2024 Generalized anxiety disorder (ICD-10 - F41.1) Learning About Generalized Anxiety Disorder material was published, Generalized Anxiety Disorder: Care Instructions material was published Major Depressive Disorder - Assessment: The patient reports experiencing a roller coaster of emotions, with only three to four good days in the past two weeks. The addition of Rexulti showed some improvement, but not enough to stabilize the patient's mood. - Plan: - Discontinue Rexulti. - Start Quetiapine ER (slow release) to help with anxiety symptoms and sleep. Instruct the patient to take one tablet in the evening, and if there is no improvement by Wednesday, increase to two tablets. - Schedule a follow-up appointment in two weeks. Insomnia - Assessment: The patient reports inconsistent sleep patterns, with some nights only getting two to three hours of sleep. Poor sleep seems to contribute to worsening mood the following day. - Plan: - Start Quetiapine ER (slow release) to help improve sleep quality. - Instruct the patient to take the medication around 5-6 p.m. to allow it to peak before bedtime. Adjust the timing if needed to prevent excessive daytime sleepiness. The patient typically gets home around 5-5:30 p.m. and struggles the most from 5 p.m. to 9 p.m. before going to bed around 9-9:30 p.m. Anxiety - Assessment: The patient experiences increased anxiety and racing thoughts, particularly in the evenings. - Plan: Quetiapine ER (slow release) should help calm the patient's mind and alleviate anxiety symptoms. Monitor the patient's response to the medication and adjust the dose as needed during the follow-up appointment. Medication Management - Assessment: The patient did not fill the Viibryd prescription, as they were unsure if it would be continued. - Plan: Continue Viibryd and instruct the patient to fill the prescription. Psychotherapy - Assessment: The patient has been meeting with therapist Shikha and has another appointment scheduled for Wednesday. - Plan: Encourage the patient to continue attending therapy sessions and coordinate follow-up appointments with the therapist as needed. If the therapist requests to see the patient in a week, schedule both appointments on the same day. 05/18/2024 Grief (ICD-10 - F43.21) Preferred name: Matias Pronouns: he/him Sexual Orientation: straight Marital Status: , was for 32 years. Living Arrangement: son lives with him Children: 5 children, 4 daughters and 1 son. 15 grandchildren. 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 Suicidal Ideation/Self Harm: Noted passive SI. States that he is indifferent on if he lives or dies, if he wakes up or doesn't. Denies wanting to harm self though reports it scares him to have this mindset. Homicidal Ideation: Denied Access to Means (firearms, stockpiled medication, etc): Denied Chief Complaint: I'm depressed about my passing away 3 years ago. Anxiety: tired of worrying about everything and everybody. Noted difficulty controlling worry and racing thoughts. States that these thoughts often prevent him from sleeping. Irritability. GAD7 score of 14 Depression: Loneliness. Grief and loss. PHQ9 score of 18. Poor sleep and appetite. Pessimistic attitude. I'd be okay if I didn't wake up. Noted that he feels like he hates everything and that scares him. That's no way to live life. Anger/Aggression: my son says I get angry at the drop of a hat. Yelling. Denied physical aggression. Obsessions/Compul sions: Denied Carrie: Denied Psychosis: Denied Sleep: Terrible Average of 2-3 hours of sleep a night. Can't stay asleep, will wake after 2-3 hours but has trouble falling back asleep. Will toss and turn. Noted nightmares of reliving his 's end of life and finding his mom . Appetite: Noted poor appetite Trauma: Found his mom in her home and due to a recent surgery he had, police began to question him as a suspect before they confirmed with his doctor about surgery. With his brother, found his nephew who had completed suicide by hanging. Noted that he and his brother cut nephew down while waiting on first responders to arrive and then was threatened to be arrested due to tampering with evidence . Arrest me. I've got bail money. I wasn't just going to stand there and watch him hang. As oldest grandson, he had to arrange end of life care and arrangements for his grandma. He also had to act as medical power of health care attorney for his at end of life including signing paperwork to be removed from a ventilator and watching her take her last breath. Noted stressor of not being in contact with his father due to his stepmom preventing Matias and his brother from having contact. Noted that he will occasionally call local police to complete a welfare check on dad. Substance Use (type, last use, amount, frequency, withdrawal symptoms): Denied Gambling/Other Addictive Behaviors: Denied ADLs (Hygiene, Chores, Cooking, Shopping): Denied concerns. Interests/Skills/ Hobbies: I like to travel. Would like to go to [place] to visit grandson. If could afford it, [place] to visit grandson in [place]. I don't really care where I go, I just want to go. Noted that he and his used to travel. Strengths: very caring person. Likes to help others that help themselves. Open to treatment and interventions. Limitations: pessimistic mindset Goal(s) for Therapy: I wanna quit feeling this way. In regards to indifference on living and negative mindset. 05/25/2024 Post-traumatic stress disorder, chronic (ICD-10 - F43.12) Preferred name: Matias Pronouns: he/him Sexual Orientation: straight Marital Status: , was for 32 years. Living Arrangement: son lives with him Children: 5 children, 4 daughters and 1 son. 15 grandchildren. 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 Suicidal Ideation/Self Harm: Noted passive SI. States that he is indifferent on if he lives or dies, if he wakes up or doesn't. Denies wanting to harm self though reports it scares him to have this mindset. Homicidal Ideation: Denied Access to Means (firearms, stockpiled medication, etc): Denied Chief Complaint: I'm depressed about my passing away 3 years ago. Anxiety: tired of worrying about everything and everybody. Noted difficulty controlling worry and racing thoughts. States that these thoughts often prevent him from sleeping. Irritability. GAD7 score of 14 Depression: Loneliness. Grief and loss. PHQ9 score of 18. Poor sleep and appetite. Pessimistic attitude. I'd be okay if I didn't wake up. Noted that he feels like he hates everything and that scares him. That's no way to live life. Anger/Aggression: my son says I get angry at the drop of a hat. Yelling. Denied physical aggression. Obsessions/Compul sions: Denied Carrie: Denied Psychosis: Denied Sleep: Terrible Average of 2-3 hours of sleep a night. Can't stay asleep, will wake after 2-3 hours but has trouble falling back asleep. Will toss and turn. Noted nightmares of reliving his 's end of life and finding his mom . Appetite: Noted poor appetite Trauma: Found his mom in her home and due to a recent surgery he had, police began to question him as a suspect before they confirmed with his doctor about surgery. With his brother, found his nephew who had completed suicide by hanging. Noted that he and his brother cut nephew down while waiting on first responders to arrive and then was threatened to be arrested due to tampering with evidence . Arrest me. I've got bail money. I wasn't just going to stand there and watch him hang. As oldest grandson, he had to arrange end of life care and arrangements for his grandma. He also had to act as medical power of health care attorney for his at end of life including signing paperwork to be removed from a ventilator and watching her take her last breath. Noted stressor of not being in contact with his father due to his stepmom preventing Matias and his brother from having contact. Noted that he will occasionally call local police to complete a welfare check on dad. Substance Use (type, last use, amount, frequency, withdrawal symptoms): Denied Gambling/Other Addictive Behaviors: Denied ADLs (Hygiene, Chores, Cooking, Shopping): Denied concerns. Interests/Skills/ Hobbies: I like to travel. Would like to go to [place] to visit grandson. If could afford it, [place] to visit grandson in [place]. I don't really care where I go, I just want to go. Noted that he and his used to travel. Strengths: very caring person. Likes to help others that help themselves. Open to treatment and interventions. Limitations: pessimistic mindset Goal(s) for Therapy: I wanna quit feeling this way. In regards to indifference on living and negative mindset. 05/17/2024 Generalized anxiety disorder (ICD-10 - F41.1) Learning About Generalized Anxiety Disorder material was published, Generalized Anxiety Disorder: Care Instructions material was published Major Depressive Disorder - Assessment: Patient reports feeling slightly better after starting vilazodone and Rexulti, but still experiences persistent depressive symptoms, including thoughts about dying and . - Plan: - Continue vilazodone 40 mg daily and Rexulti as prescribed. - Monitor for any side effects or changes in mood. Insomnia - Assessment: Patient reports difficulty sleeping, with only 3-4 hours of sleep per night and tossing and turning. - Plan: - Continue trazodone as prescribed for sleep. - Monitor sleep patterns and consider adjusting the dose or changing medication if sleep does not improve. Poor Appetite - Assessment: Patient reports a decreased appetite. - Plan: - Encourage the patient to maintain a balanced diet and monitor weight changes. Social Support - Assessment: Patient is experiencing a sense of loss due to a close friend's correction. - Plan: - Encourage the patient to maintain contact with their friend and seek additional social support as needed. Psychotherapy - Assessment: Patient is scheduled to start seeing a therapist, Shikha, next week. - Plan: - Move up the appointment with Shikha to an earlier date, if possible, to provide additional support and address ongoing depressive symptoms. - Consider keeping the original appointment as a follow-up, depending on the outcome of the earlier session. TMS (Transcranial Magnetic Stimulation) Consideration - Assessment: Patient inquired about TMS as a potential treatment option. - Plan: - Hold off on TMS for now and reassess after the patient has had a chance to work with the therapist and monitor the effectiveness of the current medication regimen. Follow-up - Plan: - Schedule a follow-up appointment to monitor the patient's progress, medication effectiveness, and any changes in symptoms. 05/01/2024 Generalized anxiety disorder (ICD-10 - F41.1) Learning About Generalized Anxiety Disorder material was published, Generalized Anxiety Disorder: Care Instructions material was published Major Depressive Disorder - Assessment: - Patient reports persistent sadness, rating it as 8 out of 10. - Suicidal thoughts present but no plans to harm self. - PHQ-9 score improved from 18 to 14. - Currently on vilazodone 20 mg daily. - Plan: - Increase vilazodone to 40 mg daily with food. - Add Rexulti 0.5 mg daily in the evening to augment treatment. - Provide copay card and samples of Rexulti. - Schedule follow-up in 2 weeks. - Refer to counseling for crisis management and therapy. 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 - Plan: - Monitor sleep after increasing vilazodone and adding Rexulti. - Address sleep hygiene and consider sleep aids if needed at follow-up. Hypertension - Assessment: Patient is currently on blood pressure medication. - Plan: - Continue current blood pressure medication. - Monitor blood pressure at follow-up appointments. Diabetes - Assessment: Patient is currently on insulin. - Plan: - Continue current insulin regimen. - Monitor blood glucose levels at follow-up appointments. 07/19/2024 Post-traumatic stress disorder, chronic (ICD-10 - F43.12) 1. Depression - Continue Transcranial Magnetic Stimulation (TMS) therapy as the patient reports feeling better with fewer negative thoughts and no recent crying episodes after 3 sessions. - Maintain current medication regimen as prescribed. -Practice gratitude at the end of each day. 2. Sleep Disturbances - Given the patient's report of improved sleep with increased medication dosage but persistent occasional nightmares, continue to monitor sleep quality and consider medication adjustments as needed. - With the patient awaiting sleep study results and potential need for CPAP therapy based on preliminary findings, follow up on sleep study outcomes. 3. Headache - For headaches experienced post-TMS session, recommend Aleve for relief and monitor for any further TMS-related headaches. 4. Anxiety and Stress Management - Support the patient's strategy of focusing on one day at a time and recognizing small wins to enhance happiness. Encourage the continuation of these coping mechanisms. - Provide ongoing support and guidance for managing stressors related to work, family, and personal life. 5. Follow-up - Arrange a follow-up appointment in two weeks to evaluate progress and discuss any emerging concerns. - Remind the patient about the availability of walk-in services should they require assistance before the next scheduled visit. 05/17/2024 Type 1 diabetes mellitus without complications (ICD-10 - E10.9) Major Depressive Disorder - Assessment: Patient reports feeling slightly better after starting vilazodone and Rexulti, but still experiences persistent depressive symptoms, including thoughts about dying and . - Plan: - Continue vilazodone 40 mg daily and Rexulti as prescribed. - Monitor for any side effects or changes in mood. Insomnia - Assessment: Patient reports difficulty sleeping, with only 3-4 hours of sleep per night and tossing and turning. - Plan: - Continue trazodone as prescribed for sleep. - Monitor sleep patterns and consider adjusting the dose or changing medication if sleep does not improve. Poor Appetite - Assessment: Patient reports a decreased appetite. - Plan: - Encourage the patient to maintain a balanced diet and monitor weight changes. Social Support - Assessment: Patient is experiencing a sense of loss due to a close friend's correction. - Plan: - Encourage the patient to maintain contact with their friend and seek additional social support as needed. Psychotherapy - Assessment: Patient is scheduled to start seeing a therapist, Shikha, next week. - Plan: - Move up the appointment with Shikha to an earlier date, if possible, to provide additional support and address ongoing depressive symptoms. - Consider keeping the original appointment as a follow-up, depending on the outcome of the earlier session. TMS (Transcranial Magnetic Stimulation) Consideration - Assessment: Patient inquired about TMS as a potential treatment option. - Plan: - Hold off on TMS for now and reassess after the patient has had a chance to work with the therapist and monitor the effectiveness of the current medication regimen. Follow-up - Plan: - Schedule a follow-up appointment to monitor the patient's progress, medication effectiveness, and any changes in symptoms. 05/25/2024 Grief (ICD-10 - F43.21) Preferred name: Matias Pronouns: he/him Sexual Orientation: straight Marital Status: , was for 32 years. Living Arrangement: son lives with him Children: 5 children, 4 daughters and 1 son. 15 grandchildren. 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 Suicidal Ideation/Self Harm: Noted passive SI. States that he is indifferent on if he lives or dies, if he wakes up or doesn't. Denies wanting to harm self though reports it scares him to have this mindset. Homicidal Ideation: Denied Access to Means (firearms, stockpiled medication, etc): Denied Chief Complaint: I'm depressed about my passing away 3 years ago. Anxiety: tired of worrying about everything and everybody. Noted difficulty controlling worry and racing thoughts. States that these thoughts often prevent him from sleeping. Irritability. GAD7 score of 14 Depression: Loneliness. Grief and loss. PHQ9 score of 18. Poor sleep and appetite. Pessimistic attitude. I'd be okay if I didn't wake up. Noted that he feels like he hates everything and that scares him. That's no way to live life. Anger/Aggression: my son says I get angry at the drop of a hat. Yelling. Denied physical aggression. Obsessions/Compul sions: Denied Carrie: Denied Psychosis: Denied Sleep: Terrible Average of 2-3 hours of sleep a night. Can't stay asleep, will wake after 2-3 hours but has trouble falling back asleep. Will toss and turn. Noted nightmares of reliving his 's end of life and finding his mom . Appetite: Noted poor appetite Trauma: Found his mom in her home and due to a recent surgery he had, police began to question him as a suspect before they confirmed with his doctor about surgery. With his brother, found his nephew who had completed suicide by hanging. Noted that he and his brother cut nephew down while waiting on first responders to arrive and then was threatened to be arrested due to tampering with evidence . Arrest me. I've got bail money. I wasn't just going to stand there and watch him hang. As oldest grandson, he had to arrange end of life care and arrangements for his grandma. He also had to act as medical power of health care attorney for his at end of life including signing paperwork to be removed from a ventilator and watching her take her last breath. Noted stressor of not being in contact with his father due to his stepmom preventing Matias and his brother from having contact. Noted that he will occasionally call local police to complete a welfare check on dad. Substance Use (type, last use, amount, frequency, withdrawal symptoms): Denied Gambling/Other Addictive Behaviors: Denied ADLs (Hygiene, Chores, Cooking, Shopping): Denied concerns. Interests/Skills/ Hobbies: I like to travel. Would like to go to [place] to visit grandson. If could afford it, [place] to visit grandson in [place]. I don't really care where I go, I just want to go. Noted that he and his used to travel. Strengths: very caring person. Likes to help others that help themselves. Open to treatment and interventions. Limitations: pessimistic mindset Goal(s) for Therapy: I wanna quit feeling this way. In regards to indifference on living and negative mindset. 05/31/2024 Type 1 diabetes mellitus without complications (ICD-10 - E10.9) Major Depressive Disorder - Assessment: The patient reports experiencing a roller coaster of emotions, with only three to four good days in the past two weeks. The addition of Rexulti showed some improvement, but not enough to stabilize the patient's mood. - Plan: - Discontinue Rexulti. - Start Quetiapine ER (slow release) to help with anxiety symptoms and sleep. Instruct the patient to take one tablet in the evening, and if there is no improvement by Wednesday, increase to two tablets. - Schedule a follow-up appointment in two weeks. Insomnia - Assessment: The patient reports inconsistent sleep patterns, with some nights only getting two to three hours of sleep. Poor sleep seems to contribute to worsening mood the following day. - Plan: - Start Quetiapine ER (slow release) to help improve sleep quality. - Instruct the patient to take the medication around 5-6 p.m. to allow it to peak before bedtime. Adjust the timing if needed to prevent excessive daytime sleepiness. The patient typically gets home around 5-5:30 p.m. and struggles the most from 5 p.m. to 9 p.m. before going to bed around 9-9:30 p.m. Anxiety - Assessment: The patient experiences increased anxiety and racing thoughts, particularly in the evenings. - Plan: Quetiapine ER (slow release) should help calm the patient's mind and alleviate anxiety symptoms. Monitor the patient's response to the medication and adjust the dose as needed during the follow-up appointment. Medication Management - Assessment: The patient did not fill the Viibryd prescription, as they were unsure if it would be continued. - Plan: Continue Viibryd and instruct the patient to fill the prescription. Psychotherapy - Assessment: The patient has been meeting with therapist Shikha and has another appointment scheduled for Wednesday. - Plan: Encourage the patient to continue attending therapy sessions and coordinate follow-up appointments with the therapist as needed. If the therapist requests to see the patient in a week, schedule both appointments on the same day. 05/01/2024 Type 1 diabetes mellitus without complications (ICD-10 - E10.9) Major Depressive Disorder - Assessment: - Patient reports persistent sadness, rating it as 8 out of 10. - Suicidal thoughts present but no plans to harm self. - PHQ-9 score improved from 18 to 14. - Currently on vilazodone 20 mg daily. - Plan: - Increase vilazodone to 40 mg daily with food. - Add Rexulti 0.5 mg daily in the evening to augment treatment. - Provide copay card and samples of Rexulti. - Schedule follow-up in 2 weeks. - Refer to counseling for crisis management and therapy. 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 - Plan: - Monitor sleep after increasing vilazodone and adding Rexulti. - Address sleep hygiene and consider sleep aids if needed at follow-up. Hypertension - Assessment: Patient is currently on blood pressure medication. - Plan: - Continue current blood pressure medication. - Monitor blood pressure at follow-up appointments. Diabetes - Assessment: Patient is currently on insulin. - Plan: - Continue current insulin regimen. - Monitor blood glucose levels at follow-up appointments. 06/02/2024 Grief (ICD-10 - F43.21) Preferred name: Matias Pronouns: he/him Sexual Orientation: straight Marital Status: , was for 32 years. Living Arrangement: son lives with him Children: 5 children, 4 daughters and 1 son. 15 grandchildren. 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 Suicidal Ideation/Self Harm: Noted passive SI. States that he is indifferent on if he lives or dies, if he wakes up or doesn't. Denies wanting to harm self though reports it scares him to have this mindset. Homicidal Ideation: Denied Access to Means (firearms, stockpiled medication, etc): Denied Chief Complaint: I'm depressed about my passing away 3 years ago. Anxiety: tired of worrying about everything and everybody. Noted difficulty controlling worry and racing thoughts. States that these thoughts often prevent him from sleeping. Irritability. GAD7 score of 14 Depression: Loneliness. Grief and loss. PHQ9 score of 18. Poor sleep and appetite. Pessimistic attitude. I'd be okay if I didn't wake up. Noted that he feels like he hates everything and that scares him. That's no way to live life. Anger/Aggression: my son says I get angry at the drop of a hat. Yelling. Denied physical aggression. Obsessions/Compul sions: Denied Carrie: Denied Psychosis: Denied Sleep: Terrible Average of 2-3 hours of sleep a night. Can't stay asleep, will wake after 2-3 hours but has trouble falling back asleep. Will toss and turn. Noted nightmares of reliving his 's end of life and finding his mom . Appetite: Noted poor appetite Trauma: Found his mom in her home and due to a recent surgery he had, police began to question him as a suspect before they confirmed with his doctor about surgery. With his brother, found his nephew who had completed suicide by hanging. Noted that he and his brother cut nephew down while waiting on first responders to arrive and then was threatened to be arrested due to tampering with evidence . Arrest me. I've got bail money. I wasn't just going to stand there and watch him hang. As oldest grandson, he had to arrange end of life care and arrangements for his grandma. He also had to act as medical power of health care attorney for his at end of life including signing paperwork to be removed from a ventilator and watching her take her last breath. Noted stressor of not being in contact with his father due to his stepmom preventing Matias and his brother from having contact. Noted that he will occasionally call local police to complete a welfare check on dad. Substance Use (type, last use, amount, frequency, withdrawal symptoms): Denied Gambling/Other Addictive Behaviors: Denied ADLs (Hygiene, Chores, Cooking, Shopping): Denied concerns. Interests/Skills/ Hobbies: I like to travel. Would like to go to [place] to visit grandson. If could afford it, [place] to visit grandson in [place]. I don't really care where I go, I just want to go. Noted that he and his used to travel. Strengths: very caring person. Likes to help others that help themselves. Open to treatment and interventions. Limitations: pessimistic mindset Goal(s) for Therapy: I wanna quit feeling this way. In regards to indifference on living and negative mindset. 06/06/2024 Grief (ICD-10 - F43.21) Preferred name: Matias Pronouns: he/him Sexual Orientation: straight Marital Status: , was for 32 years. Living Arrangement: son lives with him Children: 5 children, 4 daughters and 1 son. 15 grandchildren. 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 Suicidal Ideation/Self Harm: Noted passive SI. States that he is indifferent on if he lives or dies, if he wakes up or doesn't. Denies wanting to harm self though reports it scares him to have this mindset. Homicidal Ideation: Denied Access to Means (firearms, stockpiled medication, etc): Denied Chief Complaint: I'm depressed about my passing away 3 years ago. Anxiety: tired of worrying about everything and everybody. Noted difficulty controlling worry and racing thoughts. States that these thoughts often prevent him from sleeping. Irritability. GAD7 score of 14 Depression: Loneliness. Grief and loss. PHQ9 score of 18. Poor sleep and appetite. Pessimistic attitude. I'd be okay if I didn't wake up. Noted that he feels like he hates everything and that scares him. That's no way to live life. Anger/Aggression: my son says I get angry at the drop of a hat. Yelling. Denied physical aggression. Obsessions/Compul sions: Denied Carrie: Denied Psychosis: Denied Sleep: Terrible Average of 2-3 hours of sleep a night. Can't stay asleep, will wake after 2-3 hours but has trouble falling back asleep. Will toss and turn. Noted nightmares of reliving his 's end of life and finding his mom . Appetite: Noted poor appetite Trauma: Found his mom in her home and due to a recent surgery he had, police began to question him as a suspect before they confirmed with his doctor about surgery. With his brother, found his nephew who had completed suicide by hanging. Noted that he and his brother cut nephew down while waiting on first responders to arrive and then was threatened to be arrested due to tampering with evidence . Arrest me. I've got bail money. I wasn't just going to stand there and watch him hang. As oldest grandson, he had to arrange end of life care and arrangements for his grandma. He also had to act as medical power of health care attorney for his at end of life including signing paperwork to be removed from a ventilator and watching her take her last breath. Noted stressor of not being in contact with his father due to his stepmom preventing Matias and his brother from having contact. Noted that he will occasionally call local police to complete a welfare check on dad. Substance Use (type, last use, amount, frequency, withdrawal symptoms): Denied Gambling/Other Addictive Behaviors: Denied ADLs (Hygiene, Chores, Cooking, Shopping): Denied concerns. Interests/Skills/ Hobbies: I like to travel. Would like to go to [place] to visit grandson. If could afford it, [place] to visit grandson in [place]. I don't really care where I go, I just want to go. Noted that he and his used to travel. Strengths: very caring person. Likes to help others that help themselves. Open to treatment and interventions. Limitations: pessimistic mindset Goal(s) for Therapy: I wanna quit feeling this way. In regards to indifference on living and negative mindset. 06/14/2024 Grief (ICD-10 - F43.21) 1. Mood fluctuations - He reports feeling better overall, with an upward trend in mood. However, he still experiences occasional lows and confusion during those periods. Continue monitoring mood fluctuations and encourage him to track his mood patterns. Plan: - Continue Cognitive Behavioral Therapy (CBT) to help him develop coping strategies for mood fluctuations. - Encourage him to discuss medication adjustments with Dr. Moyer to address the ups and downs and increased anxiety during low periods. 2. Sleep disturbances - He reports improved sleep since starting the new medication. However, he has an upcoming appointment with a veterinary medicine teacher for a sleep study due to concerns about breathing and blood sugar levels during sleep. Plan: - Encourage him to follow through with the sleep study and any recommendations from the veterinary medicine teacher. - Continue monitoring sleep quality and discuss any changes or concerns in future therapy sessions. 3. Anxiety and worry - He continues to struggle with excessive worry, particularly during low mood periods. He has been practicing radical acceptance and focusing on what is within his control. Plan: - Continue to work on CBT techniques for managing anxiety and worry, such as healthier thought patterns and distractions. - Encourage him to discuss any concerns about anxiety with Dr. Moyer, who may consider medication adjustments if necessary. 4. Early setting and self-care - He has made progress in setting boundaries and making time for himself. He has planned a vacation and is working on finding enjoyable activities. Plan: - Continue to encourage him to prioritize self-care and set healthy boundaries with others. - Assist him in identifying and engaging in activities that bring him soham and relaxation. 5. Communication and social support - He has been open with his family about his needs and has received support from his son in attending therapy. Plan: - Encourage him to continue open communication with his support network and to seek help when needed. - Reinforce the importance of maintaining social connections and engaging in activities with friends and family. Follow-up: - Schedule a follow-up appointment in two weeks to continue monitoring progress and addressing any concerns. 06/14/2024 Type 1 diabetes mellitus without complications (ICD-10 - E10.9) Major Depressive Disorder - Assessment: The patient reports experiencing a roller coaster of emotions, with only three to four good days in the past two weeks. The addition of Rexulti showed some improvement, but not enough to stabilize the patient's mood. - Plan: - Discontinue Rexulti. - Start Quetiapine ER (slow release) to help with anxiety symptoms and sleep. Instruct the patient to take one tablet in the evening, and if there is no improvement by Wednesday, increase to two tablets. - Schedule a follow-up appointment in two weeks. Insomnia - Assessment: The patient reports inconsistent sleep patterns, with some nights only getting two to three hours of sleep. Poor sleep seems to contribute to worsening mood the following day. - Plan: - Start Quetiapine ER (slow release) to help improve sleep quality. - Instruct the patient to take the medication around 5-6 p.m. to allow it to peak before bedtime. Adjust the timing if needed to prevent excessive daytime sleepiness. The patient typically gets home around 5-5:30 p.m. and struggles the most from 5 p.m. to 9 p.m. before going to bed around 9-9:30 p.m. Anxiety - Assessment: The patient experiences increased anxiety and racing thoughts, particularly in the evenings. - Plan: Quetiapine ER (slow release) should help calm the patient's mind and alleviate anxiety symptoms. Monitor the patient's response to the medication and adjust the dose as needed during the follow-up appointment. Medication Management - Assessment: The patient did not fill the Viibryd prescription, as they were unsure if it would be continued. - Plan: Continue Viibryd and instruct the patient to fill the prescription. Psychotherapy - Assessment: The patient has been meeting with therapist Shikha and has another appointment scheduled for Wednesday. - Plan: Encourage the patient to continue attending therapy sessions and coordinate follow-up appointments with the therapist as needed. If the therapist requests to see the patient in a week, schedule both appointments on the same day. Major Depressive Disorder - Assessment: The patient reports an improvement in mood and a decrease in depressive symptoms since the last visit. The patient is currently on an uphill slide and has not experienced suicidal thoughts recently. The patient's sleep has improved since the medication change, now getting approximately 8 hours of sleep per night. The patient is attending therapy with Shikha and finds it helpful. - Plan: - Continue current medications (Vilazodone and Quetiapine). - Send a refill for Vilazodone as the patient may run out in two weeks. - Monitor the patient's mood fluctuations to ensure it is not indicative of bipolar disorder. - Schedule a follow-up appointment in three weeks. - The patient will continue seeing Shikha every two weeks for therapy. Sleep Disturbance - Assessment: The patient reports improved sleep since the medication change, now sleeping around 8 hours per night without racing thoughts. The patient takes Quetiapine at 5 PM and is asleep by 10 PM. - Plan: - Continue Quetiapine as prescribed. - Monitor sleep quality and duration during follow-up appointments. Mood Fluctuations - Assessment: The patient experiences mood fluctuations, with down dips being quite severe. The patient is currently in an up phase, which has lasted for three days. The patient reports that these up phases usually last about a week before dipping again. During up phases, the patient reports talking a mile a minute. - Plan: - Closely monitor the patient's mood fluctuations during follow-up appointments and therapy sessions to determine if there is an underlying bipolar disorder. - No changes to the current treatment plan at this time. - The patient will see Shikha every two weeks and follow up every three weeks to ensure coverage during both up and down phases. 09/25/2024 Grief (ICD-10 - F43.21) 1. Major Depressive Disorder - Patient reports a lack of good days over the past 2-3 weeks, indicating worsening depressive symptoms. - Struggles with motivation and pervasive feelings of hopelessness are evident. - Adherence to prescribed medications is noted, though the patient is not working this week. - A gap in TMS treatment since the last visit is reported, with the patient awaiting a response from Jennifer regarding TMS. - Plan: - Initiate contact with Jennifer to check on the status of TMS treatment. - Consult with medical device about prescription refill to ensure no lapses in medication. - Motivate the patient to persist in engaging in activities and making plans despite difficulties. - Arrange a follow-up appointment to assess progress and modify treatment plans as necessary. 2. Sleep Apnea - Improvement in sleep quality since initiating CPAP therapy is reported by the patient. - Plan: - Reinforce the importance of consistent CPAP use as prescribed. - Continue to track sleep quality and observe for any symptom changes. 3. Diabetes - The patient describes fluctuations in blood sugar levels, potentially impacting mood. - Plan: - Encourage ongoing blood sugar monitoring and appropriate insulin use. - Suggest a discussion with the patient's primary care provider about possible diabetes management adjustments. 4. Cardiac Concerns - A 50% blockage in one carotid artery and abnormal heart rhythms have been reported by the patient. - An upcoming rag baler appointment is awaited by the patient. - Plan: - Support the patient in scheduling and attending the rag baler appointment. - Keep an eye on any symptom changes or new cardiac-related concerns. 5. Work-related Stress - The patient reports experiencing micromanagement and unfair treatment at work, contributing to stress and a negative mood. - Plan: - Advise the patient to identify coping strategies for managing work-related stress. - Consider the inclusion of work-related stress discussions in future therapy sessions to develop effective coping mechanisms. 08/18/2024 Type 1 diabetes mellitus without complications (ICD-10 - E10.9) Major Depressive Disorder, in remission - Assessment: Patient reports improvement in mood and depression symptoms after 20 TMS treatments. Patient experiences brief periods (an hour or two) of feeling low but is able to work through it. - Plan: - Continue TMS for a total of 36 treatments. - Continue vilazodone 40 mg daily for mood stabilization. Anxiety and Panic - Assessment: Patient denies any current anxiety or panic symptoms. - Plan: - No changes in treatment are needed at this time. Sleep disturbance - Assessment: Not explicitly mentioned. - Plan: - Continue quetiapine at two tablets at bedtime for sleep regulation. Psychotherapy - Assessment: Patient is currently seeing Shikha for counseling. - Plan: - Coordinate with Jennifer to schedule a continuation of care with Flavia or another therapist once Shikha's sessions are completed. Medication management - Assessment: Current medication regimen appears to be effective. - Plan: - No new prescriptions are needed at this time. - Continue monitoring the patient's response to the current medication regimen. Follow-up - Plan: - Schedule a follow-up appointment to assess the patient's progress and response to TMS treatments and medication management. 08/04/2024 Type 1 diabetes mellitus without complications (ICD-10 - E10.9) Major Depressive Disorder - Assessment: Patient reports improvement in mood and no recent episodes of low lows for 2-3 weeks. PHQ-9 score is 5, indicating minimal depression. Patient is currently undergoing TMS treatment and has completed 11 sessions so far, which seems to be helping. - Plan: a. Continue TMS treatment as scheduled. b. Encourage the patient to maintain coping strategies learned from Shikha. c. Monitor the patient's mood and depressive symptoms closely. Medication Management - Assessment: Patient is currently on vilazodone 40 mg and quetiapine ER 50 mg (two tablets at night). Patient reports needing a refill for quetiapine. Vilazodone was last filled on June 14 and is sufficient until September 14. - Plan: a. Refill quetiapine ER prescription as requested. b. Continue vilazodone 40 mg as prescribed, with no need for a refill at this time. c. Monitor for any side effects or changes in the patient's response to medications. Grief and Loss - Assessment: Patient acknowledges the loss of his as a trigger for his depressive symptoms. Patient is using coping strategies to manage grief and maintain daily activities. Patient reports making efforts to stay busy and do something when feeling down. - Plan: a. Encourage the patient to continue using coping strategies and staying active. b. Consider referral to a grief counselor or support group if needed. c. Monitor the patient's progress in managing grief and its impact on his mental health. TMS Treatment - Assessment: Patient experienced dizziness once when TMS intensity was increased without warning. No other side effects reported from TMS treatment. - Plan: a. Continue TMS treatment as scheduled. b. Ensure proper communication about intensity changes during TMS sessions. c. Monitor for any side effects or adverse reactions to TMS treatment. 09/11/2024 Grief (ICD-10 - F43.21) 1. Major Depressive Disorder - Continue current medications and closely monitor their effectiveness. - Encourage the patient to maintain open communication with his son for emotional support. - Schedule a follow-up appointment in two weeks to evaluate progress and potentially adjust treatment. - The patient is scheduled to see Flavia at the end of the month for additional support. 2. Grief and Loss - Encourage the patient to openly discuss feelings of grief during therapy sessions. - Consider referring the patient to a grief support group if deemed beneficial. 3. Frequent Falls - The patient will undergo a Holter monitor test for 30 days to assess cardiac function. - A carotid artery ultrasound will be performed to check for vascular issues. - Encourage the patient to discuss the potential use of a cane with his primary care physician for better stability and fall prevention. 4. Sleep Apnea - Encourage the patient to consistently use the CPAP machine and adhere to proper maintenance and cleaning. - Note the reported improvement in sleep quality since using the CPAP machine. 5. Diabetes Management - Continue to monitor blood sugar levels and medication adherence. - Encourage the patient to maintain a healthy diet and regular exercise routine. - The patient's son assists with medication and insulin shot administration. 6. Transcranial Magnetic Stimulation (TMS) Treatment - The patient has reached the maximum number of TMS sessions covered by insurance. - Dr. Moyer is exploring the possibility of insurance coverage for additional TMS sessions. - Discuss alternative treatment options, such as Spravato or a polyvagal nerve stimulator implant, if further TMS sessions are not covered. 07/05/2024 Type 1 diabetes mellitus without complications (ICD-10 - E10.9) Major Depressive Disorder - Assessment: Patient reports depressive symptoms including feeling down, suicidal thoughts, mood fluctuations, and frequent crying during depressive episodes. PHQ-9 score is 17, indicating moderate to severe depression. Patient has a history of positive response to TMS treatment. - Plan: a. Increase Quetiapine ER dose to 100 mg daily to help stabilize mood. b. Proceed with TMS treatment, using the BrainsWay helmet for simultaneous depression and anxiety treatment. c. Monitor patient's mood and response to treatment closely. Anxiety - Assessment: Patient reports ongoing anxiety symptoms. - Plan: a. Proceed with TMS treatment, using the BrainsWay helmet for simultaneous depression and anxiety treatment. b. Monitor patient's anxiety levels and response to treatment closely. Insomnia - Assessment: Patient reports sleeping well currently. - Plan: a. Continue Quetiapine ER at the increased dose of 100 mg daily for sleep and mood stabilization. b. Monitor sleep quality and adjust medications as needed. Diabetes - Assessment: Patient is taking Ozempic, Novolog FlexPen, Lantus insulin, and using Dexcom for glucose monitoring. - Plan: a. Continue current diabetes medications. b. Monitor blood sugar levels closely during TMS treatment, as fluctuations may affect seizure risk. Hypertension - Assessment: Patient is taking Nebivolol 5 mg daily and Benazepril Hydrochlorothiazi de. - Plan: a. Continue current hypertension medications. b. Monitor blood pressure regularly. Gastroesophageal Reflux Disease (GERD) - Assessment: Patient is taking Pantoprazole. - Plan: a. Continue Pantoprazole as prescribed. b. Monitor for any worsening of GERD symptoms. Asthma - Assessment: Patient is using Albuterol inhaler. - Plan: a. Continue Albuterol inhaler as needed for asthma symptoms. b. Monitor asthma control and adjust medications if necessary. Osteoarthritis - Assessment: Patient is taking Meloxicam. - Plan: a. Continue Meloxicam as prescribed. b. Monitor for any worsening of osteoarthritis symptoms. Consent for TMS treatment - Assessment: Patient has been informed about the risks and benefits of TMS treatment, including seizure risk, muscle twitching, and potential for mild headaches. Patient was educated on the differences between BrainsWay helmet and coil-based TMS. - Plan: a. Obtain patient's consent for TMS treatment. b. Monitor patient closely during TMS treatment for any adverse effects or complications. Medication refills - Assessment: Patient requires refills for Lurasidone (90-day prescription), Tiagabine (prescription on May 31), and is currently taking Venlafaxine 40 mg and Quetiapine ER 50 mg. - Plan: a. Refill medications as needed. b. Monitor patient's response to medications and adjust doses as necessary. 08/04/2024 Grief (ICD-10 - F43.21) 1. Post-surgical Recovery (Shoulder Surgery) - Acknowledge the patient's improved range of motion post-surgery and initiation of physical therapy. - Advise the continuation of prescribed physical therapy exercises twice daily to avert stiffness and sustain recovery. 2. Anxiety and Depressive Symptoms - Note the patient's report of reduced instances of self-calming and enhanced mood. - Monitor the effectiveness of TMS treatment, addressing side effects like dizziness by recommending the patient to sit momentarily post-session. - Maintain the current medication regimen, observing any mood or anxiety fluctuations. - Promote cognitive-behavio ral strategies, including self-talk and behavioral activation, for symptom management. 3. Sleep Apnea - Highlight the scheduled sleep apnea evaluation. - Ensure the patient's attendance at the evaluation and adherence to subsequent recommendations. 4. Work-related Stress - Document the patient's high stress levels due to work, including overtime and policy changes. - Suggest discussing therapy session timing with the employer to prevent short-term disability and enhance work-life balance. - Recommend stress management techniques such as deep breathing, mindfulness, and boundary setting in the workplace. 5. [facility]ci Planning - Discuss the patient's correction considerations and financial concerns. - Encourage exploration of part-time employment and financial planning resources for correction preparation. Follow-up: - Arrange a follow-up appointment in one month to review the patient's progress and address any emerging issues. - Advise the patient to seek immediate clinic support or assistance if needed before the next appointment. 09/25/2024 Type 1 diabetes mellitus without complications (ICD-10 - E10.9) 1. Major Depressive Disorder - Patient reports a lack of good days over the past 2-3 weeks, indicating worsening depressive symptoms. - Struggles with motivation and pervasive feelings of hopelessness are evident. - Adherence to prescribed medications is noted, though the patient is not working this week. - A gap in TMS treatment since the last visit is reported, with the patient awaiting a response from [facility] regarding TMS. - Plan: - Initiate contact with [facility] to check on the status of TMS treatment. - Consult with medical device about prescription refill to ensure no lapses in medication. - Motivate the patient to persist in engaging in activities and making plans despite difficulties. - Arrange a follow-up appointment to assess progress and modify treatment plans as necessary. 2. Sleep Apnea - Improvement in sleep quality since initiating CPAP therapy is reported by the patient. - Plan: - Reinforce the importance of consistent CPAP use as prescribed. - Continue to track sleep quality and observe for any symptom changes. 3. Diabetes - The patient describes fluctuations in blood sugar levels, potentially impacting mood. - Plan: - Encourage ongoing blood sugar monitoring and appropriate insulin use. - Suggest a discussion with the patient's primary care provider about possible diabetes management adjustments. 4. Cardiac Concerns - A 50% blockage in one carotid artery and abnormal heart rhythms have been reported by the patient. - An upcoming rag baler appointment is awaited by the patient. - Plan: - Support the patient in scheduling and attending the rag baler appointment. - Keep an eye on any symptom changes or new cardiac-related concerns. 5. Work-related Stress - The patient reports experiencing micromanagement and unfair treatment at work, contributing to stress and a negative mood. - Plan: - Advise the patient to identify coping strategies for managing work-related stress. - Consider the inclusion of work-related stress discussions in future therapy sessions to develop effective coping mechanisms. 06/28/2024 Grief (ICD-10 - F43.21) 1. Rapid cycling bipolar disorder: - Patient reports experiencing hypomanic episodes lasting 4-5 days followed by depressive episodes lasting 3-4 days, with minimal time in a stable mood state. - He is currently on Quetiapine and Vilazodone, but symptoms persist. Plan: a. Communicate with Dr. Moyer regarding the patient's current symptoms and concerns about rapid cycling. b. Discuss potential medication adjustments with Dr. Moyer to better manage his mood fluctuations. c. Schedule a follow-up appointment with the patient next week to monitor progress and discuss any changes in treatment. 2. Sleep apnea: - Patient reports a history of sleep apnea and is currently awaiting insurance approval for a new sleep study. Plan: a. Encourage him to continue pursuing the sleep study and explore different CPAP mask options or alternative treatments. b. Monitor his sleep quality and its impact on his mood and overall well-being. 3. Coping strategies for mood fluctuations: - Patient struggles with focus and motivation during depressive episodes. Plan: a. Encourage him to utilize sensory coping strategies, such as cold or sour stimuli, to help improve focus and concentration during depressive episodes. b. Continue to provide support and psychoeducation on managing mood fluctuations and recognizing early warning signs of mood shifts. c. Schedule regular therapy sessions to monitor his progress and provide ongoing support. 4. Family support and communication: - Patient's son is concerned about his well-being and may need guidance on how to best support him during mood fluctuations. Plan: a. Encourage open communication between him and his son about his mental health and needs during mood episodes. b. Provide psychoeducation and resources for his family to better understand and support his mental health journey. 07/19/2024 Grief (ICD-10 - F43.21) 1. Depression - Continue Transcranial Magnetic Stimulation (TMS) therapy as the patient reports feeling better with fewer negative thoughts and no recent crying episodes after 3 sessions. - Maintain current medication regimen as prescribed. -Practice gratitude at the end of each day. 2. Sleep Disturbances - Given the patient's report of improved sleep with increased medication dosage but persistent occasional nightmares, continue to monitor sleep quality and consider medication adjustments as needed. - With the patient awaiting sleep study results and potential need for CPAP therapy based on preliminary findings, follow up on sleep study outcomes. 3. Headache - For headaches experienced post-TMS session, recommend Aleve for relief and monitor for any further TMS-related headaches. 4. Anxiety and Stress Management - Support the patient's strategy of focusing on one day at a time and recognizing small wins to enhance happiness. Encourage the continuation of these coping mechanisms. - Provide ongoing support and guidance for managing stressors related to work, family, and personal life. 5. Follow-up - Arrange a follow-up appointment in two weeks to evaluate progress and discuss any emerging concerns. - Remind the patient about the availability of walk-in services should they require assistance before the next scheduled visit. 05/01/2024 Other Vilazodone Oral Tablet (VILAZODONE - ORAL) material was published, Brexpiprazole Oral Tablet (BREXPIPRAZOLE - ORAL) material was published Major Depressive Disorder - Assessment: - Patient reports persistent sadness, rating it as 8 out of 10. - Suicidal thoughts present but no plans to harm self. - PHQ-9 score improved from 18 to 14. - Currently on vilazodone 20 mg daily. - Plan: - Increase vilazodone to 40 mg daily with food. - Add Rexulti 0.5 mg daily in the evening to augment treatment. - Provide copay card and samples of Rexulti. - Schedule follow-up in 2 weeks. - Refer to counseling for crisis management and therapy. 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 - Plan: - Monitor sleep after increasing vilazodone and adding Rexulti. - Address sleep hygiene and consider sleep aids if needed at follow-up. Hypertension - Assessment: Patient is currently on blood pressure medication. - Plan: - Continue current blood pressure medication. - Monitor blood pressure at follow-up appointments. Diabetes - Assessment: Patient is currently on insulin. - Plan: - Continue current insulin regimen. - Monitor blood glucose levels at follow-up appointments. 07/25/2024 Other referral to the local chapter or national office of the Alzheimer's Association ( ; http://www.alz.o rg), the Alzheimer's Disease Education and Referral Center (ADEDE) ( ; http://www.gigi.n ih.gov/Alzheimer s/), Plan Of Treatment No Information Insurance Providers Payer Name Payer Address Payer Phone Subscriber Number Group Number Insured Name Patient Relationship to Insured Coverage Start Date Coverage End Date [facility] [address] [place] [address] [id number] KAT HEARD Self - patient is the insured Medical (General) History Medical History History ICD Code Problems: Chronic post-traumatic stress disorder Generalized anxiety disorder History of radiofrequency ablation opera tion for arrhythmia Severe recurrent major depression withou t psychotic features Type 1 diabetes mellitus , Past Psychiatric History: Anxiety Disord er,Major Depressive Episode undefined Surgical History Surgery Date(Month/Year) Endometr ablate thermal (85371) Gallbladder removal 03/13/2022 Cataract surgery ([id number]) Heart surgery Cataract surgery (62180) Tonsilectomy/adenoids Hospitalization History Reason Date(Month/Year) None
--- OUTSIDE RECORDS SUMMARY | 2024-11-09 19:38 | XMS_ITS ---
Author Organization [facility] Address [facility] [address] Care Team Providers Care Stamp Machine Servicer Name Role Phone HANNA HOLLOWAY MD Primary Care Provider Unavail able Mitul Moyer Unavailable [phone] Flavia Tomas Unavailable [phone] Social History Sex Assigned At : Social History Observation Description Sex Assigned At Male Encounters Encounter Location Date Provider Diagnosis [facility] [address] [address] 10/03/2024 Flavia Tomas Plan Of Treatment No Information Progress Notes * FÉLIX KAT ADOB:[birth year] (64 yo M)Acc No.[id number]:10/03/2024 Patient:?FÉLIX KAT Rambo Provider:?FLAVIA TOMAS LCSW :1960???Age:63 Y???Sex:Male Brennan e:10/03/2024 Address:[address] [place], [place] [id number] Pcp:HANNA HOLLOWAY MD Data: * Chief Complaints: * ??? Assessment: Plan: * Treatment: * Procedure Codes:?NSTHR NO SH OW THERAPY * Billing Information: * Visit Code:? * Procedure Codes:? NSTHR NO SHOW THERAPY. * Electronic signature of Flavia Tomas LCSW on 2024 at 07:37 PM WAREHOUSE EXAMINER Sign off status: Pending Signatures: No Ad Hoc Signature Added * Provider:?FLAVIA TOMAS LCSW Date:?10/03 Generated for Oscar hall/Daphne/Hitesh on:?2024 07:37 PM WAREHOUSE EXAMINER
--- OUTSIDE RECORDS SUMMARY | 2024-11-09 19:38 | XMS_ITS | CONTINUITY OF CARE DOCUMENT ---
Author Name lety dvaidson Address Unknown Organization [facility] Address [address] [place] [address] Phone [phone] Care Team Providers Care Credentialer Name Role Phone Tiffany VALDIVIA, Dion Unavailable [phone] CANELO VALDIVIA, DENISE F Unavailable CANELO VALDIVIA, DENISE F Unavailable PROBLEMS Condition Status Date Provider Notes Hypercholesterolemia active Natalya landaer Coronary Heart Disease active ? 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 Uzair flores RN SLEEP APNEA active ? Dion Allen MD DIABETES MELLITUS active ? Dion Allen MD HTN essential active Dion Allen MD OBESITY active ? Dion Allen MD HTN ESSENTIAL active ? Dion Allen MD HYPERCHOLESTEROLEMIA active ? Dion Rutherford PALPITATIONS active ? Dion Allen MD CHEST PAIN-TYPE TO BE DETERMINED active ? Cem Allen MD ENCOUNTERS Date Type Provider Location Encounter Diag nosis 12/12 - 12/13 In-person encounter Office Visit Dion Allen MD [facility] Coronary Heart Disease - In-person encounter Office Visit Dion Allen MD [facility] - In-person encounter Office Visit Dion Allen MD [facility] 08/06 - 08/07 In-person encounter Office Visit Dion Allen MD [facility] HTN essential 07/31 - 08/01 In-person encounter Office Visit Dion Allen MD [facility] 07/25 - 07/25 In-person encounter Office Visit Dion Allen MD [facility] 07/12 - 07/12 In-person encounter Office Visit Dion Allen MD [facility] 01/07 - 01/07 In-person encounter Office Visit Hansa Hirsch MD [facility] 12/24 - 12/24 In-person encounter Office Visit Hansa Hirsch MD [facility] 12/10 - 12/10 In-person encounter Office Visit Hansa Hirsch MD [facility] RBBB 11/15 - 11/15 In-person encounter Office Visit Dion Allen MD [facility] CHEST PAIN-TYPE TO BE DETERMINEDPALPITATIONSHYPERCHOLESTEROLEMIAHTN ESSENTIALOBESITYHTN essentialDIABETES MELLITUSSLEEP APNEASVT-12/20 HOLTER SR HR 54-132 VITAL SIGNS Date Observation Value Provider Body Mass Index (Ratio) 41.49 kg/m2 Sree Allen MD blood pressure, cuff size large Ke fabiano Turcios blood pressure, diastolic 70 mm[Hg] Davis Turcios blood pressure, systolic 122 mm[Hg] Savage Turcios oxygen saturation, oximetry 99 % Natalya Turcios respiratory rate E&M 18 /min Natalya singh pulse rate 65 /min Natalya boothe weight E&M 281 [lb_av] Natalya boothe height E&M 69 [in_i] Natalya boothe Body Mass Index (Ratio) 44.89 kg/m2 Sree Allen MD blood pressure, cuff size regular Ke rri Karolina blood pressure, diastolic 70 mm[Hg] Ke rri Celsouenenftone blood pressure, systolic 129 mm[Hg] Savage ri Karolina oxygen saturation, oximetry 97 % Natalya Karolina respiratory rate E&M 18 /min Natalya G francisco pulse rate 71 /min Natalya Brittny landaer weight E&M 304 [lb_av] Natalya Jaceynesherrye syedaer height E&M 69 [in_i] Natalya Brittny [facility] blood pressure, diastolic 90 mm[Hg] Pooja Doanivan Durham blood pressure, systolic 120 mm[Hg] Tiffanie Durham pulse rate 81 /min Candy Alvarez [facility] oxygen saturation, oximetry 98 % Candy Durham respiratory rate E&M 18 /min Alexandre serrano Durham Body Mass Index (Ratio) 45.92 kg/m2 Kassie Durham weight E&M 311 [lb_av] Candy Alvarez [place] blood pressure, diastolic 70 mm[Hg] Ke rri Karolina blood pressure, systolic 118 mm[Hg] Savage ri Karolina pulse rate 82 /min Natalya Brittny [facility] oxygen saturation, oximetry 98 % Natalya Karolina respiratory rate E&M 18 /min Natalya G francisco Body Mass Index (Ratio) 48.43 kg/m2 Harry i Karolina weight E&M 328 [lb_av] Natalya Brittny landa blood pressure, diastolic 87 mm[Hg] Ta yashira Shanita blood pressure, systolic 160 mm[Hg] Marie ica Shanita Body Mass Index (Ratio) 45.63 kg/m2 Yenni Diehl pulse rate 70 /min Padmini Diehl oxygen saturation, oximetry 98 % Padmini Diehl respiratory rate E&M 17 /min Padmini Diehl weight E&M 309 [lb_av] Padmini Diehl Body Mass Index (Ratio) 45.26 kg/m2 Alverto Armstrong blood pressure, diastolic 71 mm[Hg] [place]ppola blood pressure, systolic 122 mm[Hg] Yrn Armstrong pulse rate 76 /min Fannie Armstrong oxygen saturation, oximetry 98 % Fannie Armstrong respiratory rate E&M 16 /min Fannie Armstrong weight E&M 305.38 [lb_av] Fannie preciado height E&M 69 [in_i] Fannie Armstrong blood pressure, diastolic 85 mm[Hg] Davis Turcios blood pressure, systolic 155 mm[Hg] Savage Turcios pulse rate 79 /min Natalya boothe oxygen saturation, oximetry 97 % Natalya Turcios respiratory rate E&M 16 /min Natalya singh weight E&M 325.8 [lb_av] Natalya wayne blood pressure, diastolic, left arm 100 m m[Hg] Bo Manacoyoly blood pressure, systolic, left arm 144 mm [Hg] Bo Manacop blood pressure, diastolic, right arm 100 mm[Hg] Bo Manacop blood pressure, systolic, right arm 150 m m[Hg] Bo Manacop blood pressure, diastolic 100 mm[Hg] Rachele cisneros Manacoyoly blood pressure, systolic 144 mm[Hg] Preston dinero Manacoyoly respiratory rate E&M 16 /min Bo Sandipmati pulse rate 87 /min Bo Sandipacoyoly oxygen saturation, oximetry 98 % Bo Sandipmati weight E&M 286 [lb_av] Bo Mendenhall blood pressure, diastolic 78 mm[Hg] Jj Hwang RN blood pressure, systolic 150 mm[Hg] Uzair Hwang RN pulse rate 85 /min Uzair Hwang RN oxygen saturation, oximetry 98 % Uzair Hwang RN respiratory rate E&M 16 /min Uzair flores RN weight E&M 314 [lb_av] Uzair Hwang RN blood pressure, diastolic 86 mm[Hg] Jj Hwang RN blood pressure, systolic 152 mm[Hg] Uzair Hwang RN pulse rate 81 /min Uzair Hwang RN oxygen saturation, oximetry 99 % Uzair Hwang RN respiratory rate E&M 20 /min Uzair flores RN weight E&M 310 [lb_av] Uzair Hwang RN blood pressure, diastolic 69 mm[Hg] Jj Hwang RN blood pressure, systolic 140 mm[Hg] Uzair Hwang RN pulse rate 78 /min Uzair Hwang RN oxygen saturation, oximetry 99 % Uzair Hwang RN respiratory rate E&M 18 /min Uzair flores RN weight E&M 318 [lb_av] Uzair Hwang RN ALLERGIES No Known Drug Allergies RESULTS Date Observation Value Provider Reference Range Interpretation Location 5 microalbumin/crea tinine ratio, urine 16.0 MG/G CREAT [facility] 0.0-30.0 microalbumin, random, urine 0.8 mg/dL [facility] Units converted. See lab report for original value. 5 creatinine, random, urine 49.9 mg/dL [facility] Not Estab. 5 hemoglobin A1C, blood, as % of total hemoglobin 7.1 % [facility] 4.8-5.6 High 5 lipoprotein, beta, serum, point, quantitative, calculated 61 mg/dL [facility] 0-99 5 very low density lipoproteins 15 mg/dL [facility] 5-40 5 HDL cholesterol, serum 40 mg/dL [facility] >39 5 triglyceride, serum, random 76 mg/dL [facility] 0-149 5 cholesterol, serum 116 mg/dL [facility] [id number] 1963/12/0 5 calcium, serum 9.3 mg/dL [facility] 8.7-10.2 5 carbon dioxide, venous blood 24 mmol/L [facility] 20-29 5 chloride, serum 100 mmol/L [facility] 96-106 5 potassium, serum 4.1 mmol/L [facility] 3.5-5.2 5 sodium, serum 141 mmol/L [facility] 121-802 4088/12/0 5 urea nitrogen/creatini ne ratio, serum 13 [facility] 9-20 5 eGFR if 100 mL/min/{1 .73_m2} [facility] >59 5 eGFR if not 86 mL/min/{1 .73_m2} [facility] >59 5 creatinine, serum 0.98 mg/dL [facility] 0.76-1.27 5 urea nitrogen, blood 13 mg/dL [facility] 6-24 5 blood glucose, random 86 mg[facility]99 4 blood glucose, finger stick 189 Reshma Gallego 3 blood glucose, finger stick 147 Reshma Gallego 3 triglyceride, serum, fasting 78 mg/dL Reshma Gallego 3 HDL cholesterol, serum 42 mg/dL Reshma Gallego 3 LDL cholesterol, serum 96 mg/dL Reshma Gallego 3 cholesterol, serum 154 mg/dL Reshma Gallego HISTORY OF MEDICATION USE Medication Status Instructions Dates Provider Indications Com ments HUMULIN R SOLUTION active 90 units am and 70 units in pm Natalya Gruenenfelder CRESTOR 20 MG ORAL TABLET active 1 tab at bedtime Padmini Diehl NAPRELAN 500 MG ORAL TABLET EXTENDED RELEASE 24 HOUR completed take one twice a day with food - Fannie Armstrong METOPROLOL SUCCINATE ER 100 MG ORAL TABLET EXTENDED RELEASE 24 HOUR active one tab. daily Dion Allen MD BENAZEPRIL-HY DROCHLOROTHIA ZIDE 10-12.5 MG ORAL TABLET active take one pill a day Natalya Turcios may substitute to formulary HUMULIN R SOLUTION completed per insulin pump - Candy Durham ASPIRIN 81 MG ORAL TABLET active 1 tablet by mouth daily Dion Allen MD METOPROLOL SUCCINATE ER 100 MG ORAL TABLET EXTENDED RELEASE 24 HOUR completed 1 tablet by mouth daily - Bo Mendenhall LORAZEPAM 0.5 MG ORAL TABLET completed 1 tablet by mouth 3 times daily as needed - Natalya Turcios SIMCOR 500-40 MG ORAL TABLET EXTENDED RELEASE 24 HOUR completed 1 tablet by mouth daily - Padmini Diehl SOCIAL HISTORY Date Observation Value Provider social history E&M Marital Statu s: L jane with family/friends E thnicity: Ellie rockwell: 5 O ccupation: Hailey Smoking History: Yoly hayden has never smoked. Dion Allen MD social history reviewed E&M revi ewed - no changes required Dion Allen MD exercise type walking,crawlinb , climbing Natalya Turcios physical exercise, frequency, days per week 7 /wk Natalya Turcios alcohol use no Natalya boothe drug use no Natalya boothe passive cigarette sm andie exposure no Natalya Turcios smoking status Never smoker Natalya collins social history E&M Marital Statu s: L jane with family/friends E thnicity: Smoking History: P atstefanie has never smoked. Ellie rockwell: 5 O ccupation: Hailey Allen MD social history reviewed E&M revi ewed - no changes required Dion Allen MD exercise type walking,crawlinb , climbing Natalya Houstonmera physical exercise, frequency, days per week 7 /wk Natalya Houstonjadsherrytone alcohol use no Natalya Mart lder drug use no Natalya Mart lder passive cigarette sm andie exposure no Natalya Marleyradhajonas smoking status Never smoker Natalya Morales karina social history reviewed E&M revi ewed - no changes required Dion Allen MD exercise type walking,crawlinb , climbing Candy Durham physical exercise, frequency, days per week 7 /wk Candy Durham alcohol use no Candy Alvarez nson drug use no Candy Alvarez nson passive cigarette sm andie exposure no Candy Durham smoking status Never smoker Candyivan Cisneros alcohol use no Natalya Mart lder smoking status Never smoker Natalya Morales karina smoking status Never smoker Dion Allen MD social history reviewed E&M revi ewed - no changes required Dion Allen MD social history reviewed E&M reviewed Dion Allen MD exercise type walking,crawlinb , climbing Fannie Armstrong physical exercise, frequency, days per week 7 /wk Fannie Armstrong drug use no Dion Rutherford passive cigarette sm andie exposure no Fannie Armstrong smoking status never smoker Fannie preciado social history reviewed E&M reviewed Dion Allen MD social history reviewed E&M reviewed Uzair Hwang RN social history reviewed E&M reviewed Uzair Hwang RN smoking/tobacco cess ation, patient education and counseling yes Hansa Hirsch MD social history reviewed E&M reviewed Uzair Hwang RN drug use none Dion Rutherford social history E&M Marital Statu s: L jane with family/friends E thnicity: Uzair Hwang RN smoking status Non-Smoker Uzair Hwang RN social history reviewed E&M reviewed Uzair Hwang RN FUNCTIONAL STATUS Date Observation Value Provider HRA, CV Assess/Plan, Angina (inactive) Management Plan continue current therapy Dion Allen MD MENTAL STATUS Date Observation Value Provider assessment of judgme nt and insight E&M Alert and oriented to time, place and person. Mood and affect are normal. Dion Allen MD assessment of judgme nt and insight E&M Alert and oriented to time, place and person. Mood and affect are normal. Dion Allen MD assessment of judgme nt and insight E&M Alert and oriented to time, place and person. Mood and affect are normal. Uzair Hwang RN assessment of judgme nt and insight E&M Alert and oriented to time, place and person. Mood and affect are normal. Uzair Hwang RN assessment of judgme nt and insight E&M Alert and oriented to time, place and person. Mood and affect are normal. Uzair Hwang RN assessment of judgme nt and insight E&M Alert and oriented to time, place and person. Mood and affect are normal. Uzair Hwang RN FAMILY HISTORY Family Member Condition Paternal Grandfather Family History of C oronary Artery Disease: Mother Family History of Di abetes: INSURANCE PROVIDERS Payer name Policy type / Coverage type [employer] ID [employer] D[place] [id number] ADVANCE DIRECTIVES Name Date DISCUSSED - NO DECISION MADE TREATMENT PLAN Date Name Performer Cardiology Follow up :Check lipi d profile Dion Allen MD Cardiology Follow up Dion preciado MD Cardiology Follow up Dion preciado MD Cardiology Follow up Diondaryl preciado MD Cardiology Follow up :Screen for diabetic studies. Dion Allen MD Cardiology Follow up Dion preciado MD Cardiology Follow up Diondaryl preciado MD Cardiology Follow up Diondaryl preciado MD Cardiology Follow up Diondaryl preciado MD Cardiology Follow up Diondaryl preciado MD Cardiology Follow up Diondaryl preciado MD Cardiology Follow up Diondaryl preciado MD Cardiology Dion Tiffany VALDIVIA Cardiology Dion Allen MD Cardiology Diondaryl Allen MD Cardiology Diondaryl Allen MD Cardiology Diondaryl Allen MD Cardiology Diondaryl Allen MD Cardiology Diondaryl Allen MD Cardiology Diondaryl Allen MD Cardiology Follow up Dion preciado MD Cardiology Follow up Diondaryl preciado MD Cardiology Follow up Diondaryl preciado MD Cardiology Follow up Dion preciado MD Cardiology Follow up :S/P WPW ab lation 2010 Dion Allen MD follow up Dion Allen MD follow up Dion Allen MD follow up iDon Allen MD follow up Dion Allen MD follow up Dion Allen MD follow up Dion Allen MD follow up: H is updated medication list for this problem includes: Aspirin 81 Mg Tabs (Aspirin) ..... 1 tablet by mouth daily Benazepril Hcl 20 Mg Tabs (Benazepril hcl) ..... One tab daily Metoprolol Succinate 100 Mg Tb24 (Metoprolol succinate) ..... One tab. daily Orders: X -Ray, Chest, PA & Lateral (CPT-56478) Dion Allen MD follow up: B P today: 122/71 Prior BP: 155/85 (07/12/2012) C HOL: 154 (07/21/2011) LDL: 96 (07/21/2011) HDL: 42 (07/21/2011) T (07/21/2011) Dion Allen MD follow up: B P today: 122/71 P rior BP: 155/85 (07/12/2012) Labs Reviewed: C hol: 154 (07/21/2011) HDL: 42 (07/21/2011) LDL: 96 (07/21/2011) T (07/21/2011) Dion Allen MD follow up: B P today: 122/71 Prior BP: 155/85 (07/12/2012) Dion Allen MD follow up: B P today: 122/71 Prior BP: 155/85 (07/12/2012) C ardiac Cath: Elevated LV EDP. Normal left ventricular function. Nonobstructive coronary artery disease. - (07/21/2011) Dion Allen MD follow up: B P today: 122/71 Prior BP: 155/85 (07/12/2012) C ardiac Cath: Elevated LV EDP. Normal left ventricular function. Nonobstructive coronary artery disease. - (07/21/2011) Dion Allen MD follow up: H is updated medication list for this problem includes: Aspirin 81 Mg Tabs (Aspirin) ..... 1 tablet by mouth daily Benazepril Hcl 10 Mg Tabs (Benazepril hcl) ..... One tablet each night Metoprolol Succinate 100 Mg Tb24 (Metoprolol succinate) ..... One tab. daily BP today: 155/85 Prior BP: 144/100 (01/08/2012) C ardiac Cath: Elevated LV EDP. Normal left ventricular function. Nonobstructive coronary artery disease. - (07/21/2011) C HOL: 154 (07/21/2011) LDL: 96 (07/21/2011) HDL: 42 (07/21/2011) T (07/21/2011) Dion Allen MD follow up: H is updated medication list for this problem includes: Aspirin 81 Mg Tabs (Aspirin) ..... 1 tablet by mouth daily Benazepril Hcl 10 Mg Tabs (Benazepril hcl) ..... One tablet each night Metoprolol Succinate 100 Mg Tb24 (Metoprolol succinate) ..... One tab. daily BP today: 155/85 P rior BP: 144/100 (01/08/2012) Labs Reviewed: C hol: 154 (07/21/2011) HDL: 42 (07/21/2011) LDL: 96 (07/21/2011) T (07/21/2011) Dion Allen MD follow up: H is updated medication list for this problem includes: Aspirin 81 Mg Tabs (Aspirin) ..... 1 tablet by mouth daily Humulin R Soln (Insulin regular human soln) ..... Per insulin pump Benazepril Hcl 10 Mg Tabs (Benazepril hcl) ..... One tablet each night BP today: 155/85 Prior BP: 144/100 (01/08/2012) Dion Allen MD follow up: H is updated medication list for this problem includes: Aspirin 81 Mg Tabs (Aspirin) ..... 1 tablet by mouth daily Benazepril Hcl 10 Mg Tabs (Benazepril hcl) ..... One tablet each night Metoprolol Succinate 100 Mg Tb24 (Metoprolol succinate) ..... One tab. daily BP today: 155/85 Prior BP: 144/100 (01/08/2012) C ardiac Cath: Elevated LV EDP. Normal left ventricular function. Nonobstructive coronary artery disease. - (07/21/2011) Dion Allen MD follow up: T he following medications were removed from the medication list: Lorazepam 0.5 Mg Tabs (Lorazepam) ..... 1 tablet by mouth 3 times daily as needed His updated medication list for this problem includes: Aspirin 81 Mg Tabs (Aspirin) ..... 1 tablet by mouth daily Benazepril Hcl 10 Mg Tabs (Benazepril hcl) ..... One tablet each night Metoprolol Succinate 100 Mg Tb24 (Metoprolol succinate) ..... One tab. daily BP today: 155/85 Prior BP: 144/100 (01/08/2012) C ardiac Cath: Elevated LV EDP. Normal left ventricular function. Nonobstructive coronary artery disease. - (07/21/2011) Dion Allen MD follow up: T he following medications were removed from the medication list: Lorazepam 0.5 Mg Tabs (Lorazepam) ..... 1 tablet by mouth 3 times daily as needed His updated medication list for this problem includes: Aspirin 81 Mg Tabs (Aspirin) ..... 1 tablet by mouth daily Benazepril Hcl 10 Mg Tabs (Benazepril hcl) ..... One tablet each night Metoprolol Succinate 100 Mg Tb24 (Metoprolol succinate) ..... One tab. daily Orders: E KG ([id number]) C omplete Echo (CPT-82312) BP today: 155/85 Prior BP: 144/100 (01/08/2012) C ardiac Cath: Elevated LV EDP. Normal left ventricular function. Nonobstructive coronary artery disease. - (07/21/2011) Dion Allen MD hosp f/u: H is updated medication list for this problem includes: Aspirin 81 Mg Tabs (Aspirin) ..... 1 tablet by mouth daily Humulin R Soln (Insulin regular human soln) ..... Per insulin pump BP today: 140/69 Prior BP: / () Dion Allen MD hosp f/u: H is updated medication list for this problem includes: Metoprolol Succinate 100 Mg [id number] (Metoprolol succinate) ..... 1 tablet by mouth daily Aspirin 81 Mg Tabs (Aspirin) ..... 1 tablet by mouth daily BP today: 140/69 Labs Reviewed: C hol: 154 (07/21/2011) HDL: 42 (07/21/2011) LDL: 96 (07/21/2011) T (07/21/2011) Dion Allen MD hosp f/u: H is updated medication list for this problem includes: Metoprolol Succinate 100 Mg [id number] (Metoprolol succinate) ..... 1 tablet by mouth daily Aspirin 81 Mg Tabs (Aspirin) ..... 1 tablet by mouth daily BP today: 140/69 Labs Reviewed: C hol: 154 (07/21/2011) HDL: 42 (07/21/2011) LDL: 96 (07/21/2011) T (07/21/2011) Dion Allen MD hosp f/u: H is updated medication list for this problem includes: Simcor 500-40 Mg [id number] (Niacin-simvastatin) ..... 1 tablet by mouth daily BP today: 140/69 Prior BP: / () C HOL: 154 (07/21/2011) LDL: 96 (07/21/2011) HDL: 42 (07/21/2011) T (07/21/2011) Dion Allen MD hosp f/u: H is updated medication list for this problem includes: Lorazepam 0.5 Mg Tabs (Lorazepam) ..... 1 tablet by mouth 3 times daily as needed Metoprolol Succinate 100 Mg [id number] (Metoprolol succinate) ..... 1 tablet by mouth daily Aspirin 81 Mg Tabs (Aspirin) ..... 1 tablet by mouth daily BP today: 140/69 Prior BP: / () C ardiac Cath: Elevated LV EDP. Normal left ventricular function. Nonobstructive coronary artery disease. - [facility] (07/21/2011) Dion Allen MD hosp f/u: H is updated medication list for this problem includes: Metoprolol Succinate 100 Mg [id number] (Metoprolol succinate) ..... 1 tablet by mouth daily Aspirin 81 Mg Tabs (Aspirin) ..... 1 tablet by mouth daily BP today: 140/69 Prior BP: / () C ardiac Cath: Elevated LV EDP. Normal left ventricular function. Nonobstructive coronary artery disease. - [facility] (07/21/2011) CHOL: 154 (07/21/2011) LDL: 96 (07/21/2011) HDL: 42 (07/21/2011) T (07/21/2011) Dion Allen MD Date Name LIPID PANEL URINALYSIS, RANDOM, MICROALB/CREATININE HEMOGLOBIN A1c BASIC METABOLIC PANE L W/EGFR STR - Nuclear Mobile Cardiac Tele Complete Echo X-Ray, Chest, PA & L ateral Complete Echo STR - Nuclear Complete Echo Holter Monitor 24 Hr ABLATION w/ Anesthes ia Event Recorder HISTORY OF PROCEDURES Procedure Date Procedure Name Provider Procedure Notes S tatus EKG Dion Allen MD complete d EKG Dion Allen MD complete d SNOMED-CT: 581603115080318 Current Medications Documented Dion Allen MD completed Stress EKG Sher Christianson MD completed Regadenoson, 4 units Dion Allen MD completed Cardiolite, 2 units Dion Allen MD completed SPECT Images Josefina Ojeda MD compl eted Mobile Cardiac Telem etry - Tech Bernard Cox completed Mobile Cardiac Telem etry - Prof Bernard Cox completed EKG Dion Allen MD complete d SNOMED-CT: [id number] Current Medications Documented Dion Allen MD completed SNOMED-CT: [id number] Current Medications Documented Dion Allen MD completed EKG Dion Allen MD complete d EKG Dion Allen MD complete d EKG Dion Allen MD complete d EKG Dion Allen MD complete d Schedule Followup Hansa pappas MD in 2 months with SK completed EKG Hansa lozada MD completed EKG Hansa lozada MD completed
== END 2024-11-02 08:40 | disposition home or self-care (01) ==
LOC: ANHCARD 08:41
PROVIDERS: PCP Family Medicine; Visit Provider Internal Medicine Cardiovascular Disease
DX: R55 Syncope and collapse (principal)
CPT/HCPCS: C8929; Q9957

== ENCOUNTER 2025-03-20 10:38 | Outpatient (CLI) | payer BC, SELFPAY ==
--- NOTE | ~2025-03-20 | CT_ITS ---
CT abdomen pelvis wo con Ordering provider: PARISH Riley History: 64 years Male with . R11.2 - Nausea with vomiting, unspecified . Comparison: September 04, 2022 Technique: CT abdomen and pelvis without IV and without oral contrast. Automated exposure control and iterative reconstruction technique were employed. The dose-length product was 1298.84 mGy-cm. Findings: VISUALIZED LOWER CHEST: Normal. Trace of pericardial effusion. UPPER ABDOMINAL ORGANS: Liver: Normal. Gallbladder: Status post cholecystectomy. Spleen: Normal. Stomach/duodenum: Normal. Pancreas: Normal. Adrenals: Fatty lesion in the left adrenal gland unchanged from previous examination. Kidneys: Tiny stone in the right kidney mid pole. PELVIC ORGANS: The bladder wall is slightly thickened. Evaluation for cystitis advised. BOWEL AND MESENTERY: Colon: No evidence of diverticulitis.. Normal appendix. Small Bowel: Normal. No obstruction. Peritoneum/mesentery: No free air or free fluid. No mesenteric lymphadenopathy. RETROPERITONEUM: Mild atheromatous disease of the abdominal aorta. No retroperitoneal lymphadenopat hy. MUSCULOSKELETAL: Superficial soft tissues: The superficial soft tissues are normal. Bones: Age appropriate degenerative changes of the spine. Bilateral sacroiliacs. IMPRESSION: 1. No evidence of appendicitis, diverticulitis or intestinal obstruction. 2. Tiny stone in the right kidney midpole. 3. Fat-containing lesion in the left adrenal gland unchanged from previous examination. 4. Trace of pericardial effusion. Reviewed, dictated and finalized at location A. IMPRESSION: 1. No evidence of appendicitis, diverticulitis or intestinal obstruction. 2. Tiny stone in the right kidney midpole. 3. Fat-containing lesion in the left adrenal gland unchanged from previous exa mination. 4. Trace of pericardial effusion.
--- OUTSIDE RECORDS SUMMARY | 2025-03-20 10:57 | XMS_ITS | Continuity of Care Document ---
Author Organization [facility] Address [address] [place] [address] Phone Care Team Providers Care Evp Managing Director Name Role Phone Trino Lopez Unavailable Unavailable [...] Diagnoses Date Provider Providers Copied on Encounter [facility], [address] [place], [place] [address] [address], [place], [place], [id number], [place] tel:[phone] [facility] No Information 1-200 9 Jessica Jameson. [address] [place], [address], [place]. tel:[phone] Referring Provider: Trino Beal, [address] [place], [address]. tel:[phone] [facility], [address] [place], [place] [address] [address], [place], [place], [id number], [place] tel:[phone] SEC [facility] No Information March-0 4-200 9 Jessica Jameson. [address] [place], [address], [place]. tel:[phone] Referring Provider: Trino Beal, [address] [place], [address]. tel:[phone] [facility], [address], [place], [place], [id number], [place] tel:[phone] [facility] No Information Apr-2 7-200 9 Jessica Jameson. [address] [place], [address], [place]. tel:[phone] [facility], [address], [place], [place], [id number], [place] tel:[phone] [facility] No Information Apr-2 3-200 9 Jessica Jameson. [address] [place], [address], [place]. tel:[phone] Office Consultation [facility], [address], [place], [place], [id number], [place] tel:[phone] [facility] No Information Apr-0 9-200 9 Jessica Jameson. [address] [place], [address], [place]. [phone] Referring Provider: Patricia Patterson, [address] [facility], [place], [address]. tel:[phone] Family History Family Member Type Diagnosis Age At Onset No Information Payers Payer name Insurance type Covered green party ID Niccia altaf(s) [employer] [place] Out Of [place] [id number] Social History Type Description Quantity Date Captured [...]
--- OUTSIDE RECORDS SUMMARY | 2025-03-20 10:57 | XMS_ITS | CONTINUITY OF CARE DOCUMENT ---
Author Name lety bryantwander Address Unknown Organization [facility] Address [address] [place] [address] Phone [phone] Care Team Providers Care Epic Radiant Analyst Name Role Phone Tiffany VALDIVIA, Dion Unavailable CANELO VALDIVIA, DENISE F Unavailable [phone] CANELO VALDIVIA DENISE F Unavailable PROBLEMS Condition Status Date [...] In-person encounter Office Visit Dion Allen MD [facility] Coronary Heart Disease - In-person encounter Office Visit Dion Allen MD [facility] - 0 In-person encounter Office Visit Dion Allen MD [facility] 08/06 - 08/07 In-person encounter Office Visit Dion Allen MD [facility] HTN essential 07/31 - 08/01 In-person encounter Office Visit Dion Allen MD [facility] 07/25 - 07/25 In-person encounter Office Visit Dion Allen MD [facility] 07/12 - 07/12 In-person encounter Office Visit Dion Allen MD [facility] 01/07 - 01/07 In-person encounter Office Visit Hansa Hirsch MD [facility] 12/24 - 12/24 In-person encounter Office Visit Hansa Hirsch MD [facility] 12/10 - 12/10 In-person encounter Office Visit Hansa Hirsch MD [facility] RBBB 11/15 - 11/15 In-person encounter Office Visit Dion Allen MD [facility] CHEST PAIN-TYPE TO BE DETERMINEDPALPITATIONSHYPERCHOLESTEROLEMIAHTN ESSENTIALOBESITYHTN [...] MD blood pressure, cuff size regular Ke fabiano Tucrios blood pressure, diastolic 70 mm[Hg] Ke rri Jaceynesalvatore blood pressure, systolic 129 mm[Hg] Ker ri Karolina oxygen saturation, oximetry 97 % Natalya Celsomera respiratory rate E&M 18 /min Natalya G francisco pulse rate 71 /min Natalya Yumiverona landa weight E&M 304 [lb_av] Natalya Jaceyneverona landa height E&M 69 [in_i] Natalya Brittny landa blood pressure, diastolic 90 mm[Hg] Pooja Alfaro Herminio blood pressure, systolic 120 mm[Hg] Tiffanie Israel Herminio pulse rate 81 /min Candy Alvarez jose oxygen saturation, oximetry 98 % Candy Durham respiratory rate E&M 18 /min Alexandre zach Durham Body Mass Index (Ratio) 45.92 kg/m2 Kassie Hirsch Durham weight E&M 311 [lb_av] Candy Alvarez jose blood pressure, diastolic 70 mm[Hg] Ke rri Karolina blood pressure, systolic 118 mm[Hg] Savage ri Karolina pulse rate 82 /min Natalya Celsokamilalo landa oxygen saturation, oximetry 98 % Natalya Karolina respiratory rate E&M 18 /min Natalya G francisco Body Mass Index (Ratio) 48.43 kg/m2 Harry i Karolina weight E&M 328 [lb_av] Natalya Celsokamilalo landa blood pressure, diastolic 87 mm[Hg] Ta yashira Shanita blood pressure, systolic 160 mm[Hg] Marie ica Shanita Body Mass Index (Ratio) 45.63 kg/m2 Yenni ca Shanita pulse rate 70 /min Padmini Diehl oxygen saturation, oximetry 98 % Padmini Diehl respiratory rate E&M 17 /min Padmini Diehl weight E&M 309 [lb_av] Padmini Diehl Body Mass Index (Ratio) 45.26 kg/m2 Alverto jonatan Armstrong blood pressure, diastolic 71 mm[Hg] Coppola [...] diastolic, left arm 100 m m[Hg] Bo Manacop blood pressure, systolic, left arm 144 mm [Hg] Bo Manacop blood pressure, diastolic, right arm 100 mm[Hg] Bo Man[place] blood pressure, systolic, right arm 150 m m[Hg] Bo Man[place] blood pressure, diastolic 100 mm[Hg] Rachele cisneros [place] blood pressure, systolic 144 mm[Hg] Preston dinero Manacoyoly respiratory rate E&M 16 /min Bo Manacop pulse rate 87 /min Bo Mendenhall oxygen saturation, oximetry 98 % Bo Mendenhall weight E&M 286 [lb_av] Bo Mendenhall blood [...] Observation Value Provider Reference Range Interpretation Location microalbumin/crea tinine ratio, urine 16.0 MG/G CREAT [facility] 0.0-30.0 microalbumin, random, urine 0.8 mg/dL [facility] Units converted. See lab report for original value. creatinine, random, urine 49.9 mg/dL [facility] Not Estab. hemoglobin A1C, blood, as % of total hemoglobin 7.1 % [facility] 4.8-5.6 High lipoprotein, beta, serum, point, quantitative, calculated 61 mg/dL [facility] 0-99 5 very low density lipoproteins 15 mg/dL [facility] 5-40 5 HDL cholesterol, serum 40 mg/dL [facility] >39 5 triglyceride, serum, random 76 mg/dL [facility] 0-149 5 cholesterol, serum 116 mg/dL [facility] [phone]/12/0 5 calcium, serum 9.3 mg/dL [facility] 8.7-10.2 5 carbon dioxide, venous blood 24 mmol/L [facility] 20-29 5 chloride, serum 100 mmol/L [facility] 96-106 5 potassium, serum 4.1 mmol/L [facility] 3.5-5.2 5 sodium, serum 141 mmol/L [facility] 224-067 4682/12/0 5 urea nitrogen/creatini ne ratio, serum 13 [facility] 9-20 5 eGFR if 100 mL/min/{1 .73_m2} [facility] >59 5 eGFR if not 86 mL/min/{1 .73_m2} [facility] >59 5 creatinine, serum 0.98 mg/dL [facility] 0.76-1.27 5 urea nitrogen, blood 13 mg/dL [facility] 6-24 5 blood glucose, random 86 mg/dL [facility] 65-99 4 blood glucose, finger stick 189 [...] am and 70 units in pm Natalya Turcios CRESTOR 20 MG ORAL TABLET active 1 tab at bedtime Padmini Diehl NAPRELAN 500 MG ORAL TABLET EXTENDED RELEASE 24 HOUR completed take one twice a day with food - Vimalozzy Armstrong METOPROLOL SUCCINATE ER 100 MG ORAL [...] rockwell: 5 O ccupation: Hailey Smoking History: P atstefanie has never smoked. Dion Allen MD social history reviewed E&M revi ewed - no changes required Dion Allen MD exercise type walking,crawlinb , climbing Natalya Turcios physical exercise, frequency, days per week 7 /wk Natalya Turcios alcohol use no Natalya boothe drug use no Natalya landaer passive cigarette sm andie exposure no Natalya [...] frequency, days per week 7 /wk Natalya Karolina alcohol use no Natalya Mart lder drug use no Natalya Mart lder passive cigarette sm andie exposure no Natalya Houstonjadsherrytone smoking status Never smoker Natalya Houstonrachelle collins social history reviewed E&M revi ewed - no changes required Dion Allen MD exercise type walking,crawlinb , climbing Candy Durham physical exercise, frequency, days per week 7 wk Candy Durham alcohol use no Candy Alvarez nson drug use no Candy Alvraez nson passive cigarette sm andie exposure no Candy Durham smoking status Never smoker Candyivan Cisneros alcohol use no Natalya Mart lder smoking status Never smoker Natalya collins smoking status Never smoker Dion Allen MD social history reviewed E&M revi ewed - no changes required Dion Allen MD social history reviewed E&M reviewed Dion Allen MD exercise type walking,crawlinb , climbing Fannie Armstrong physical exercise, frequency, days per week 7 wk Fannie Armstrong drug use no Dion Rutherford [...] Rutherford social history E&M Marital Statu s: Keyshawn lara with family/friends E 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 Dion Allen MD Cardiology Follow up Dion preciado MD Cardiology Follow up Dion preciado MD Cardiology Follow up Dion preciado MD Cardiology Follow up Dion preciado MD Cardiology Follow up Dion preciado MD Cardiology Follow up Dion preciado MD Cardiology Follow up Dion preciado MD Cardiology Dion Allen MD Cardiology Dion Allen MD Cardiology Dion Allen MD Cardiology Dion Allen MD Cardiology Dion Allen MD Cardiology Dion Allne MD Cardiology Dion Allen MD Cardiology Dion Allen MD Cardiology Follow up Dion [...] Orders: X -Ray, Chest, PA & Lateral (CPT-[id number]) Dion Allen MD follow up: B P [...] ..... One tab. daily Orders: E KG (CPT-36720) C omplete Echo (CPT-46180) BP today: 155/85 Prior BP: 144/100 (01/08/2012) [...] this problem includes: Metoprolol Succinate 100 Mg Va21f-jse (Metoprolol succinate) ..... 1 tablet by mouth daily Aspirin 81 Mg Tabs (Aspirin) ..... 1 tablet by mouth daily BP today: 140/69 Labs Reviewed: C hol: 154 (07/21/2011) HDL: 42 (07/21/2011) LDL: 96 (07/21/2011) T (07/21/2011) Dion Allen MD hosp f/u: H is updated medication list for this problem includes: Metoprolol Succinate 100 Mg [id number]-[id number] (Metoprolol succinate) ..... 1 tablet by mouth daily Aspirin 81 Mg Tabs (Aspirin) ..... 1 tablet by mouth daily BP today: 140/69 Labs Reviewed: C hol: 154 (07/21/2011) HDL: 42 (07/21/2011) LDL: 96 (07/21/2011) T (07/21/2011) Dion Allen MD hosp f/u: H is updated medication list for this problem includes: Simcor 500-40 Mg [id number]-[id number] (Niacin-simvastatin) ..... 1 tablet by mouth daily BP today: 140/69 Prior BP: / () C HOL: 154 (07/21/2011) LDL: 96 (07/21/2011) HDL: 42 (07/21/2011) T (07/21/2011) Dion Allen MD hosp f/u: H is updated medication list for this problem includes: Lorazepam 0.5 Mg Tabs (Lorazepam) ..... 1 tablet by mouth 3 times daily as needed Metoprolol Succinate 100 Mg Dm73j-wzb (Metoprolol succinate) ..... 1 tablet by mouth daily Aspirin 81 Mg Tabs (Aspirin) ..... 1 tablet by mouth daily BP today: 140/69 Prior BP: / () C ardiac Cath: Elevated LV EDP. Normal left ventricular function. Nonobstructive coronary artery disease. - CH (07/21/2011) Dion Allen MD hosp f/u: H is updated medication list for this problem includes: Metoprolol Succinate 100 Mg Pw16t-far (Metoprolol succinate) ..... 1 tablet by mouth [...] EKG Dion Allen MD complete d SNOMED-CT: 225191043790495 Current Medications Documented Dion Allen MD completed Stress EKG Sher Christianson MD completed Regadenoson, 4 units Dion Allen MD completed Cardiolite, 2 units Dion Allen MD completed SPECT Images Josefina Ojeda MD compl eted [employer] - Tech Bernard Cox completed [employer] - Prof Bernard Cox completed EKG Dion Allen MD complete d SNOMED-CT: 691813533777231 Current Medications Documented Dion Allen MD completed SNOMED-CT: 853715012803838 Current Medications Documented Dion Allen MD completed EKG Dion Allen MD complete d EKG Dion Allen MD complete d EKG Dion Allen MD complete d EKG Dion Allen MD complete d Schedule Followup Hansa pappas MD in 2 months with SK completed EKG Hansa lozada MD completed EKG Hansa lozada MD completed
--- OUTSIDE RECORDS SUMMARY | 2025-03-20 10:57 | XMS_ITS ---
Author Name MISHA JONES Address [address] [place] [phone] [facility] Address [address] [place] [address] Phone Care Team Providers Care Environmental Change Analyst Name Role Phone MISHA JONES ALLERGIES, ADVERSE REACTIONS AND ALERTS Allergy Name Allergy Date Allergy Status Allergy Severity Allergy Reaction NO KNOWN DRUG ALLERGIES MEDICATIONS RxNorm Brand Name Prescription Ordered Value Order Unit Start Date Date Status Fill Status Indications [id number] Paxlovid (EUA) 300 mg (150 mg x 2)-100 mg tablets,do se pack SIG: Paxlovid (EUA) 300 mg (150 mg x 2)-100 mg oral tablets,dose pack, 5 days, Dispense #30 Tablet, 0 Refills, Directions: take 1 dose pack BID x 5 days. 30 tablet s,dose pack 2021 Current PROBLEMS Problem Code Problem Description Problem Status Problem Da te Problem End Date [id number] diabetes mellitus Type 1 diabetes mellitus Current 09/09/2022 PROCEDURES Procedure Description Date Notes NO PROCEDURES PERFORMED ASSESSMENTS Assessment None PLAN OF TREATMENT Assessment Planned Activity LOINC Planned Brennan e None CONSULTATION NOTE Note Author Date None HISTORY AND PHYSICAL NOTE Note Author Date None PROGRESS NOTE Note Author Date None DISCHARGE SUMMARY Note Author Date None CHIEF COMPLAINT AND REASON FOR VISIT FUNCTIONAL STATUS Functional or Cognitive Find ing None MENTAL STATUS Cognitive Finding None ENCOUNTERS Encounter Type Provider Diagnoses Start Date Location None SOCIAL HISTORY Social Status Observation Unknown if ever smoked Sex:Male CARE TEAM INFORMATION Environmental Change Analyst Provider ID Role Location Phone MISHA JONES [id number] [address] [place] [phone]
[2025-03-20 11:40] LABS: Basophils Absolute Auto 0.1 K/mm3 (0.0-0.1); Basophils Percent Auto 0.4 % (0.2-1.2); Eosinophils Absolute Auto 0.2 K/mm3 (0-0.3); Eosinophils Percent Auto 1.3 % (0-4.4); Hematocrit 50.3 % (42.0-52.0); Hemoglobin 16.6 g/dL (14.0-18.0); Immature Granulocyte Absolute 0.06 K/mm3 (0.00-0.031); Immature Granulocyte Percent A 0.4 % (0-0.5); Lymphocytes Absolute Auto 2.69 K/mm3 (0.9-3.2); Lymphocytes Percent Auto 19.6 % (18.3-44.2); Mean Corpuscular Hemoglobin 27.7 pg (26-34); Mean Corpuscular Volume 83.8 fl (80-100); Mean Platelet Volume 8.9 fl (7.4-10.4); Monocytes Absolute Auto 1.1 K/mm3 (0.1-0.6); Monocytes Percent Auto 8.3 % (2.6-8.5); Neutrophils Absolute Auto 9.6 K/mm3 (1.3-6.7); Platelet Count Result 322 k/mm3 (150-375); Red Cell Distribution Width 14.1 % (11.5-14.5); White Blood Count 13.7 K/mm3 (4.5-10.0)
[2025-03-20 11:47] LABS: Alanine Aminotransferase 28 U/L (6-50); Albumin Level 4.5 g/dL (3.5-5.1); Alkaline Phosphatase 95 U/L (38-126); Amylase 76 U/L (30-110); Anion Gap 12 mmol/L (4-12); Aspartate Amino Transferase 36 U/L (17-59); Bilirubin,Total 1.6 mg/dL (0.2-1.3); Blood Urea Nitrogen 21 mg/dL (9-20); Carbon Dioxide 21 mmol/L (22-30); Chloride 102 mmol/L (98-107); Estimated Glomerular Filt Rate 59; Glucose 247 mg/dL (65-110); Lipase 178 U/L (23-300); Potassium 4.5 mmol/L (3.4-5.0); Sodium 135 mmol/L (137-145)
== END 2025-03-20 10:39 | disposition home or self-care (01) ==
PROVIDERS: PCP Family Medicine; Visit Provider Physician Assistant Medical
DX: D35.02 Benign neoplasm of left adrenal gland (principal); N20.0 Calculus of kidney; Z87.19 Personal history of other diseases of the digestive system
CPT/HCPCS: 36415; 74176; 80053; 82150; 83690; 85025

== ENCOUNTER 2025-03-21 16:18 | Outpatient (CLI) | payer BC, SELFPAY ==
--- OUTSIDE RECORDS SUMMARY | 2025-03-21 16:21 | XMS_ITS | CONTINUITY OF CARE DOCUMENT ---
Author Name lety bryantwander Address Unknown Organization [facility] Address [address] [place] [address] Phone [phone] Care Team Providers Care Design And Sales Consultant Name Role Phone Tiffany VALDIVIA, Dion Unavailable CANELO VALDIVIA, DENISE F Unavailable [phone] CANELO VALDIVIA DENISE F Unavailable [phone] PROBLEMS Condition Status Date Provider Notes Hypercholesterolemia active Natalya boothe CHEST PAIN-TYPE TO BE DETERMINED active ? Cem Allen MD PALPITATIONS active ? Dion Allen MD HYPERCHOLESTEROLEMIA active ? Dion Rutherford HTN ESSENTIAL active ? Dion Allen MD OBESITY active ? Dion Allen MD HTN essential active Dion Allen MD DIABETES MELLITUS active ? Dion Allen MD SLEEP APNEA active ? Dion Allen MD SVT-12/20 HOLTER SR HR 54-132 active ? Uzair flores RN RBBB active Hansa Hirsch MD Coronary Heart Disease active ? Dion Allen MD ENCOUNTERS Date Type Provider Location Encounter Diag nosis 12/12 - 12/13 In-person encounter Office Visit Dion Allen MD [facility] Coronary Heart Disease - In-person encounter Office Visit Dion Allen MD [facility] - 0 In-person encounter Office Visit Dion Allen MD [facility] 08/06 - 08/07 In-person encounter Office Visit Dion Allen MD [facility] HTN essential 07/31 - 08/01 In-person encounter Office Visit Dion Allen MD [facility] 07/25 - 07/25 In-person encounter Office Visit Dion Allen MD [facility] 07/12 - 07/12 In-person encounter Office Visit Dion Allen MD [facility] 01/07 - 01/07 In-person encounter Office Visit Hansa Hirsch MD [facility] 12/24 - 12/24 In-person encounter Office Visit Hansa Hirsch MD [facility] 12/10 - 12/10 In-person encounter Office Visit Hansa Hirsch MD [facility] RBBB 11/15 - 11/15 In-person encounter Office Visit Dion Allen MD [facility] CHEST PAIN-TYPE TO BE DETERMINEDPALPITATIONSHYPERCHOLESTEROLEMIAHTN ESSENTIALOBESITYHTN [...] blood pressure, cuff size regular Ke fabiano Turcios blood pressure, diastolic 70 mm[Hg] Ke rri [...] ca Shanita pulse rate 70 /min Padmini iDehl oxygen saturation, oximetry 98 % Padmini Diehl [...] 0-149 5 cholesterol, serum 116 mg/dL [facility] [phone]/12/0 5 calcium, serum 9.3 mg/dL [facility] 8.7-10.2 5 carbon dioxide, venous blood 24 mmol/L [facility] 20-29 5 chloride, serum 100 mmol/L [facility] 96-106 5 potassium, serum 4.1 mmol/L [facility] 3.5-5.2 5 sodium, serum 141 mmol/L [facility] [phone]/12/0 5 urea nitrogen/creatini ne ratio, serum 13 [...] Gallego 3 cholesterol, serum 154 mg/dL Reshma Galelgo HISTORY OF MEDICATION USE Medication Status Instructions [...] use no Natalya landaer passive cigarette sm andei exposure no Natalya Turcios smoking status Never [...] Payer name Policy type / Coverage type [employer] party ID [place] [employer] ADV[employer] HMO C [id number] ADVANCE DIRECTIVES Name Date DISCUSSED - NO [...] Orders: X -Ray, Chest, PA & Lateral (CPT-[id number]) Dion Allen MD follow up: B P [...] ..... One tab. daily Orders: E KG (CPT-34330) C omplete Echo (CPT-90040) BP today: 155/85 Prior BP: 144/100 (01/08/2012) [...] this problem includes: Metoprolol Succinate 100 Mg Qy81c-dql (Metoprolol succinate) ..... 1 tablet by mouth daily Aspirin 81 Mg Tabs (Aspirin) ..... 1 tablet by mouth daily BP today: 140/69 Labs Reviewed: C hol: 154 (07/21/2011) HDL: 42 (07/21/2011) LDL: 96 (07/21/2011) T (07/21/2011) Dion Allen MD hosp f/u: H is updated medication list for this problem includes: Metoprolol Succinate 100 Mg Oo96s-che (Metoprolol succinate) ..... 1 tablet by mouth daily Aspirin 81 Mg Tabs (Aspirin) ..... 1 tablet by mouth daily BP today: 140/69 Labs Reviewed: C hol: 154 (07/21/2011) HDL: 42 (07/21/2011) LDL: 96 (07/21/2011) T (07/21/2011) Dion Allen MD hosp f/u: H is updated medication list for this problem includes: Simcor 500-40 Mg Ho56h-lrw (Niacin-simvastatin) ..... 1 tablet by mouth daily BP today: 140/69 Prior BP: / () C HOL: 154 (07/21/2011) LDL: 96 (07/21/2011) HDL: 42 (07/21/2011) T (07/21/2011) Dion Allen MD hosp f/u: H is updated medication list for this problem includes: Lorazepam 0.5 Mg Tabs (Lorazepam) ..... 1 tablet by mouth 3 times daily as needed Metoprolol Succinate 100 Mg Kn17k-cts (Metoprolol succinate) ..... 1 tablet by mouth daily Aspirin 81 Mg Tabs (Aspirin) ..... 1 tablet by mouth daily BP today: 140/69 Prior BP: / () C ardiac Cath: Elevated LV EDP. Normal left ventricular function. Nonobstructive coronary artery disease. - [facility] (07/21/2011) Dion Allen MD hosp f/u: H is updated medication list for this problem includes: Metoprolol Succinate 100 Mg Om64a-ina (Metoprolol succinate) ..... 1 tablet by mouth [...] EKG Dion Allen MD complete d SNOMED-CT: [id number] Current Medications Documented Dion Allen MD completed Stress EKG Sher Christianson MD completed Regadenoson, 4 units Dion Allen MD completed Cardiolite, 2 units Dion Allen MD completed SPECT Images Josefina Ojeda MD compl eted [employer] - Tech Bernard Cox completed [employer] - Prof Bernard Cox completed EKG Dion Allen MD complete d SNOMED-CT: [id number] Current Medications Documented Dion Allen MD completed SNOMED-CT: [id number] Current Medications Documented Dion Allen MD completed EKG Dion Allen MD complete d EKG Dion Allen MD complete d EKG Dion Allen MD complete d EKG Dion Allen MD complete d Schedule Followup Hansa pappas MD in 2 months with SK completed EKG Hansa lozada MD completed EKG Hansa lozada MD completed
--- OUTSIDE RECORDS SUMMARY | 2025-03-21 16:22 | XMS_ITS ---
Author Name MISHA JONES Address [address] [place] [phone] [facility] Address [address] [place] [address] Phone Care Team Providers Care Summer Internship Name Role Phone MISHA JONES ALLERGIES, ADVERSE REACTIONS AND ALERTS Allergy Name Allergy Date Allergy Status Allergy Severity Allergy Reaction NO KNOWN DRUG ALLERGIES MEDICATIONS RxNorm Brand Name Prescription Ordered Value Order Unit Start Date Date Status Fill Status Indications [id number] Paxlovid (EUA) 300 mg (150 mg x 2)-100 mg tablets,do se pack SIG: Paxlovid (EUA) 300 mg (150 mg x 2)-100 mg oral tablets,dose pack, 5 days, Dispense #30 Tablet, 0 Refills, Directions: take 1 dose pack BID x 5 days. 30 tablet s,dose pack 2021 Current PROBLEMS Problem Code Problem Description Problem Status Problem Da te Problem End Date [id number] 1 diabetes mellitus Type 1 diabetes mellitus [...] if ever smoked Sex:Male CARE TEAM INFORMATION Summer Internship Provider ID Role Location Phone MISHA JONES [id number] [address] [place] [phone]
--- OUTSIDE RECORDS SUMMARY | 2025-03-21 16:22 | XMS_ITS | Patient Health Record ---
Author Organization [facility] [employer] Address [address] [place] [address] Care Team Providers Care It Program Auditor Name Role Phone JEWEL VALDIVIA, [facility] Primary Care Provider Unavail able Mitul Moyer Unavailable [phone] Flavia Brown Unavailable [phone] Migration, Provider Unavailable Unavailable Shikha Martinez Unavailable [phone] Allergies Allergen (clinical drug ingredient) Drug/Non Drug [...] Vaccine Route Administration Date Status Comme nts Pfizer [employer]iontech Covid-19 Vac cine 2nd dose Unknown 02/26/2021 Administered Pfizer [employer]ion[employer] Covid-19 Vac cine 2nd dose Unknown 03/19/2021 Administered Influenza, seasonal, injecta ble, preservative free, 3 yrs and above Unknown 10/05/2014 Administered Social History Tobacco Use: Social History [...] Problem Type I diabetes mellitus without complication (675750348) Type 1 diabetes mellitus without complications (E10.9) Active confirmed Problem Severe recurrent major depression without psychotic features (12244605) Major depressive disorder, recurrent severe without psychotic features (F33.2) Active confirmed Problem Generalized anxiety disorder (41017890) Generalized anxiety disorder (F41.1) Active confirmed Problem Posttraumatic stress disorder (57524424) Post-traumatic stress disorder, chronic (F43.12) Active confirmed Problem Grief (033782614) Grief (F43.21) Active confirm ed Vital Signs Heart Rate 86 /min 08/18/2024 Height-cm 175.26 cm 08/18/2024 Blood pressure diastolic 74 mm Hg 08/18/2024 Weight-kg 121.11 kg 08/18/2024 Height 69.00 in 08/18/2024 Blood pressure systolic 114 mm Hg 08/18/2024 Weight 267 lbs 08/18/2024 BMI 39.42 kg/m2 08/18/2024 Encounters Encounter Location Date Provider Diagnosis [facility] [employer] [facility] [address] [facility] [address] [place] [address] 10/03/2024 Flavia Brown [facility] [employer] [facility] [address] [facility] [address] [place] [address] 04/13/2024 Mitul Moyer Major depressive disorder, recurrent severe without psychotic features F33.2 ; Generalized anxiety disorder F41.1 and Type 1 diabetes mellitus without complications E10.9 [facility] [employer] [facility] [address] [place] [address] 05/01/2024 Mitul Comfort Major depressive disorder, recurrent severe without psychotic features F33.2 ; Generalized anxiety disorder F41.1 and Type 1 diabetes mellitus without complications E10.9 [facility] [employer], [facility] [address] [place] [address] 05/17/2024 Mitul Comfort Major depressive disorder, recurrent severe without psychotic features F33.2 ; Generalized anxiety disorder F41.1 and Type 1 diabetes mellitus without complications E10.9 [facility] [employer] [facility] [address] [place] [address] 05/18/2024 Shikha Hinderliter Major depressive disorder, recurrent severe without psychotic features F33.2 ; Post-traumatic stress disorder, chronic F43.12 and Grief F43.21 [facility] [employer] [facility] [address] [place] [address] 05/25/2024 Shikha Hinderliter Major depressive disorder, recurrent severe without psychotic features F33.2 ; Post-traumatic stress disorder, chronic F43.12 and Grief F43.21 [facility] [employer] [facility] [address] [place] [address] 05/31/2024 Mitul Comfort Major depressive disorder, recurrent severe without psychotic features F33.2 ; Generalized anxiety disorder F41.1 and Type 1 diabetes mellitus without complications E10.9 [facility] [employer] [facility] [address] [place] [address] 06/02/2024 Shikha Hinderliter Major depressive disorder, recurrent severe without psychotic features F33.2 ; Post-traumatic stress disorder, chronic F43.12 and Grief F43.21 [facility] [employer] [facility] [address] [place] [address] 06/06/2024 Hsikha Hinderliter Major depressive disorder, recurrent severe without psychotic features F33.2 ; Post-traumatic stress disorder, chronic F43.12 and Grief F43.21 [facility] [employer] [facility] [address] [place] [address] 06/14/2024 Mitul Comfort Major depressive disorder, recurrent severe without psychotic features F33.2 ; Generalized anxiety disorder F41.1 and Type 1 diabetes mellitus without complications E10.9 [facility] [address] [place] [address] 06/14/2024 Shikha Hinderliter Major depressive disorder, recurrent severe without psychotic features F33.2 ; Generalized anxiety disorder F41.1 ; Post-traumatic stress disorder, chronic F43.12 and Grief F43.21 [facility] [address] [place] [address] 06/28/2024 Shikha Hinderliter Major depressive disorder, recurrent severe without psychotic features F33.2 ; Generalized anxiety disorder F41.1 ; Post-traumatic stress disorder, chronic F43.12 and Grief F43.21 [facility] [address] [place] [address] 07/05/2024 Mitul Comfort Major depressive disorder, recurrent severe without psychotic features F33.2 ; Generalized anxiety disorder F41.1 and Type 1 diabetes mellitus without complications E10.9 [facility] [address] [place] [address] 07/13/2024 Mitul Comfort Major depressive disorder, recurrent severe without psychotic features F33.2 [facility] [address] [place] [address] 07/17/2024 Mitul Comfort Major depressive disorder, recurrent severe without psychotic features F33.2 [facility] [address] [place] [address] 07/19/2024 Mitul Comfort Major depressive disorder, recurrent severe without psychotic features F33.2 [facility] [address] [place] [address] 07/19/2024 Shikha Hinderliter Major depressive disorder, recurrent severe without psychotic features F33.2 ; Generalized anxiety disorder F41.1 ; Post-traumatic stress disorder, chronic F43.12 and Grief F43.21 [facility] [address] [place] [address] 07/20/2024 Mitul Comfort Major depressive disorder, recurrent severe without psychotic features F33.2 [facility] [address] [place] [address] 07/21/2024 Mitul Comfort [facility], [facility] [address] [place] [address] 07/24/2024 Mitul Comfort Major depressive disorder, recurrent severe without psychotic features F33.2 [facility], [facility] [address] [place] [address] 07/25/2024 Mitul Comfort Major depressive disorder, recurrent severe without psychotic features F33.2 [facility], [facility] [address] [place] [address] 07/26/2024 Mitul Comfort Major depressive disorder, recurrent severe without psychotic features F33.2 [facility], [facility] [address] [place] [address] 07/27/2024 Mitul Comfort Major depressive disorder, recurrent severe without psychotic features F33.2 [facility], [facility] [address] [place] [address] 07/31/2024 Imtul Comfort Major depressive disorder, recurrent severe without psychotic features F33.2 [facility], [facility] [address] [place] [address] 08/01/2024 Mitul Comfort Major depressive disorder, recurrent severe without psychotic features F33.2 [facility], [facility] [address] [place] [address] 08/03/2024 Mitul Comfort Major depressive disorder, recurrent severe without psychotic features F33.2 [facility], [facility] [address] [place] [address] 08/04/2024 Mitul Comfort Major depressive disorder, recurrent severe without psychotic features F33.2 ; Generalized anxiety disorder F41.1 and Type 1 diabetes mellitus without complications E10.9 [facility], [facility] [address] [place] [address] 08/04/2024 Mitul Comfort Major depressive disorder, recurrent severe without psychotic features F33.2 [facility] [address] [place] [address] 08/04/2024 Shikha Gormanliter Major depressive disorder, recurrent severe without psychotic features F33.2 ; Generalized anxiety disorder F41.1 ; Post-traumatic stress disorder, chronic F43.12 and Grief F43.21 [facility], [facility] [address] [place] [address] 08/07/2024 Mitul Comfort Major depressive disorder, recurrent severe without psychotic features F33.2 [facility], [facility] [address] [place] [address] 08/09/2024 Mitul Comfort Major depressive disorder, recurrent severe without psychotic features F33.2 [facility], [facility] [address] [place] [address] 08/10/2024 Mitul Comfort Major depressive disorder, recurrent severe without psychotic features F33.2 [facility], [facility] [address] [place] [address] 08/11/2024 Mitul Comfort Major depressive disorder, recurrent severe without psychotic features F33.2 [facility], [facility] [address] [place] [address] 08/15/2024 Mitul Comfort Major depressive disorder, recurrent severe without psychotic features F33.2 [facility], [facility] [address] [place] [address] 08/16/2024 Mitul Comfort Major depressive disorder, recurrent severe without psychotic features F33.2 [facility], [facility] [address] [place] [address] 08/17/2024 Mitul Comfort Major depressive disorder, recurrent severe without psychotic features F33.2 [facility], [facility] [address] [place] [address] 08/18/2024 Mitul Comfort Major depressive disorder, recurrent severe without psychotic features F33.2 [facility], [facility] [address] [place] [address] 08/18/2024 Mitul Comfort Major depressive disorder, recurrent severe without psychotic features F33.2 ; Generalized anxiety disorder F41.1 and Type 1 diabetes mellitus without complications E10.9 [facility], [facility] [address] [place] [address] 08/22/2024 Mitul Comfort Major depressive disorder, recurrent severe without psychotic features F33.2 [facility], [facility] [address] [place] [address] 08/23/2024 Mitul Comfort Major depressive disorder, recurrent severe without psychotic features F33.2 [facility], [facility] [address] [place] [address] 08/24/2024 Mitul Comfort Major depressive disorder, recurrent severe without psychotic features F33.2 [facility], [facility] [address] [place] [address] 08/25/2024 Mitul Comfort Major depressive disorder, recurrent severe without psychotic features F33.2 [facility], [facility] [address] [place] [address] 08/28/2024 Mitul Comfort Major depressive disorder, recurrent severe without psychotic features F33.2 [facility], [facility] [address] [place] [address] 09/04/2024 Mitul Comfort Major depressive disorder, recurrent severe without psychotic features F33.2 [facility], [facility] [address] [place] [address] 09/05/2024 Mitul Comfort Major depressive disorder, recurrent severe without psychotic features F33.2 [facility], [facility] [address] [place] [address] 09/07/2024 Mitul Comfort Major depressive disorder, recurrent severe without psychotic features F33.2 [facility] [address] [place] [address] 09/11/2024 Shikha Hinderliter Major depressive disorder, recurrent severe without psychotic features F33.2 ; Generalized anxiety disorder F41.1 ; Post-traumatic stress disorder, chronic F43.12 and Grief F43.21 [facility] [address] [place] [address] 09/25/2024 Shikha Hinderliter Major depressive disorder, recurrent severe without psychotic features F33.2 ; Generalized anxiety disorder F41.1 ; Post-traumatic stress disorder, chronic F43.12 ; Grief F43.21 and Type 1 diabetes mellitus without complications E10.9 [facility], [facility] [address] [place] [address] 03/25/2024 Provider Migration [facility], [facility] [address] [place] [address] 03/26/2024 Provider Migration [facility], [facility] [address] [place] [address] 05/01/2024 [facility], [facility] [address] [place] [address] 06/28/2024 [facility], [facility] [address] [facility] [address] [place] [address] 07/21/2024 [facility] [address] [place] [address] 08/01/2024 [facility] [address] [facility] [address] [place] [address] 09/25/2024 [facility] [address] [facility] [address] [place] [address] 09/25/2024 Mitul Templetonam Major depressive disorder, recurrent severe without psychotic [...] effects related to medications during follow-up appointments. 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 - Plan: - Monitor sleep after [...] of loss due to a close friend's long-term. - Plan: - Encourage the patient to [...] medication effectiveness, and any changes in symptoms. 05/18/2024 Major depressive disorder, recurrent severe without psychotic features (ICD-10 - F33.2) Preferred name: Matias Pronouns: he/him Sexual Orientation: straight Marital Status: , was for 32 years. Living Arrangement: son lives with him Children: 5 children, 4 daughters and 1 son. 15 grandchildren. 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 Would like to go to [place] to visit grandson. If could afford it, Van to visit grandson in [facility]. 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 Would like to go to [place] to visit grandson. If could afford it, Van to visit grandson in [facility]. I don't really care where I go, I just want to go. Noted that he and his used to travel. Strengths: very caring person. Likes to help others that help themselves. Open to treatment and interventions. Limitations: pessimistic mindset Goal(s) for Therapy: I wanna quit feeling this way. In regards to indifference on living and negative mindset. 05/25/2024 Major depressive disorder, recurrent severe without psychotic features (ICD-10 - F33.2) Preferred name: Matias Pronouns: he/him Sexual Orientation: straight Marital Status: , was for 32 years. Living Arrangement: son lives with him Children: 5 children, 4 daughters and 1 son. 15 grandchildren. 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 Would like to go to [place] to visit grandson. If could afford it, Van to visit grandson in [place]. 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 Would like to go to [place] to visit grandson. If could afford it, Van to visit grandson in [facility]. I don't really care where I go, [...] he has an upcoming appointment with a telephone supervisor for a sleep study due to concerns about breathing and blood sugar levels during sleep. Plan: - Encourage him to follow through with the sleep study and any recommendations from the telephone supervisor. - Continue monitoring sleep quality and discuss [...] may consider medication adjustments if necessary. 4. [place] setting and self-care - He has made [...] discuss medication adjustments with Dr. Moyer to [id number]|2025-03-21 16:22:00|2025-03-21 16:21:00|XMS_ITS|BKG DAEMON|External Medical Summaries|[id number]|" Continuity of Care Document (C-CDA R2.1) (Encounter date: 03/28/2009 03:00 PM) Created on: March 21, 2025 Herminio Cristobal : 1960 Sex: Male Author Organization [employer] [facility] Address [address] [place] [address] Phone Care Team Providers Care It Program Auditor Name Role Phone Jessica Trino Unavailable Unavailable Procedures Procedure Date Eye Exam Established Pt Ophthalmoscopy, Subsequent Eye Exam & Treatment Ophthalmoscopy, Subsequent Post-op Follow-up Visit Ophthalmoscopy, Subsequent Eye Exam Established Pt Ophthalmoscopy, Subsequent Ophthalmoscopy, Subsequent Office Consultation Ophthalmoscopy Advance Directives Directive Yes / No Effective Date File Name No Information Encounters Encounter Description Practice Location Reason(s) For Visit Diagnoses Date Provider Providers Copied on Encounter [employer] [facility] [employer] [facility], [facility] [address] [place], [place], [id number], [place] tel:[phone] [facility] No Information 1 [address] Jessica Jameson. [address] [place], [place], [facility], . tel:[phone] Referring Provider: Trino Beal, [address] [place], [address]. tel:[phone] [facility], [address], [place], [place], [id number], [place] tel:[phone] SEC [facility] No Information 4-[address] Jessica Jameson. [address] [place], [address], [place]. tel:[phone] Referring Provider: Trino Beal, [address] [place], [address]. tel:[phone] [employer] [facility] [employer] [facility], [address], [place], [place], [id number], [place] tel:[phone] [facility] No Information [address] Jessica Jameson. [address] [place] [address], [address], [place]. tel:[phone] [employer] [facility] [employer] [facility], [address], [place], [place], [id number], [place] [phone] [facility] No Information Feb-2 3-[address] 9 Jessica Jameson. [address] [place], [address], [place]. tel:[phone] Office Consultation [facility], [address], [place], [place], [id number], [place] tel:[phone] [facility] No Information Apr-0 9-200 9 Jessica Jameson. [address] [place], [address], [place]. tel:[phone] Referring Provider: Patricia Patterson, [address] [place] [address] , [place], [address]. tel:[phone] Family History Family Member Type Diagnosis Age At Onset No Information Payers Payer name Insurance type Covered green party ID Kenney solitario(s) [facility] Out Of State [id number] Social History Type Description Quantity Date Captured [...] (start - stop) Status Members No Information "
--- OUTSIDE RECORDS SUMMARY | 2025-03-21 16:22 | XMS_ITS ---
Author Organization [facility] [employer] Address [facility] [address] Care Team Providers Care Incinerator Attendant Name Role Phone HANNA HOLLOWAY MD Primary Care Provider Unavail able Mitul Moyer Unavailable [phone] Flavia Tomas Unavailable [phone] Social History Sex Assigned At : Social History Observation Description Sex Assigned At Male Encounters Encounter Location Date Provider Diagnosis [facility] [employer] [address] [address] 10/03/2024 Flavia Tomas Plan Of Treatment No Information Progress Notes * KAT HEARD ADOB:[birth year] (64 yo M)Acc No.[id number]:10/03/2024 Patient: KAT THEODORE Provider: Rambo TOMAS LCSW :1960 A ge:63 Y S ex:Male Date:10/03/2024 Address:[address] [place], [place] [address] Pcp:HANNA HOLLOWAY MD Data: * Chief Complaints: * Assessment: Plan: * Treatment: * Procedure Codes: N STHR NO SHOW THERAPY * Billing Information: * Visit Code: * Procedure Codes: NSTHR NO SHOW THERAPY. * Electronic signature of Flavia Tomas LCSW on 03/21/2025 at 04:21 PM CDT Sign off status: Pending Signatures: No Ad Hoc Signature Added * Provider: Rambo TOMAS LCSW Date: 12/03/2023 Generated for Oscar hall/Daphne/Hitesh on: 0 03/21/2025 04:21 PM CDT
[2025-03-23 07:29] LABS: CMV IgG Antibody <0.60 U/mL; CMV IgM Antibody <30.00 AU/mL
[2025-03-23 13:43] LABS: EBV Nuclear Ab Antibody >600.00 U/mL; EBV Virus Capsid Ag IgM Ab <36.00 U/mL
== END 2025-03-21 16:19 | disposition home or self-care (01) ==
LOC: ANHLAB 16:20
PROVIDERS: PCP Family Medicine; Visit Provider Physician Assistant Medical
DX: D72.829 Elevated white blood cell count, unspecified (principal)
CPT/HCPCS: 36415; 86644; 86645; 86664; 86665

== ENCOUNTER 2025-07-26 00:16 | Day surgery (SDC) | payer BC, SELFPAY ==
[2025-07-12 13:44] VITALS: BMI 36.9
[2025-07-26 09:28] VITALS: BP 124/61; PULSE 65; RESP 20; TEMP 36.2; O2SAT 100; BMI 35.7
[2025-07-26] MEDS: LACTATED RINGERS 1,000 ML 150 ML IV CONT (09:39)
--- NOTE | 2025-07-26 09:41 | WPDANESEPPF ---
Anes - Initial Pre Proc Eval Procedure: Operation Date: 07/26/25 11:00 Proposed Procedures p Screening Colonoscopy - Alcides Moss MD Date/Time: 07/26/25 09:41 Surgeon: Alcides Moss MD Pre Op Diagnosis: Personal history of colon polyps, unspecified Patient Data Age: 64 Gender: M Height: 1.75 m Weight: 109.9 kg Last Vital Signs Temp 36.2 C L 07/26/25 09:28 Pulse 65 07/26/25 09:28 Resp 20 07/26/25 09:28 BP 124/61 07/26/25 09:28 Pulse Ox 100 07/26/25 09:28 O2 Del Method Room Air 07/26/25 09:28 Allergies Allergy/AdvReac Type Severity Reaction Status Date / Time levofloxacin AdvReac Intermediate Itching Verified 07/12/25 13:29 Home Medications ?Medication ?Instructions ?Recorded ?Confirmed ?Type aspirin 81 mg tablet,delayed 81 mg PO DAILY 09/08/19 07/26/25 History release (Adult Low Dose Aspirin) pen needle, diabetic 32 gauge x #200 ea 05/24/23 06/18/25 Rx 1/4 (BD Ultra-Fine Micro Pen Needle) blood-glucose,arc trimmer,cont #1 ea 01/14/24 06/18/25 Rx (Dexcom G6 Hand Bulldozer) blood-glucose sensor (Dexcom G6 #6 ea 08/18/24 06/18/25 Rx Sensor device) dapagliflozin propanediol 10 mg 10 mg PO QAM #90 tabs 08/18/24 07/26/25 Rx tablet (Farxiga) glucagon 1 mg/0.2 mL subcutaneous 1 mg (0.2 mL) subcut ONCE #0.4 mL 08/18/24 07/12/25 Rx auto-injector (Gvoke HypoPen 2-Pack) glucose 4 gram chewable tablet 4 g PO Q15M PRN hypoglycemia #360 08/18/24 07/12/25 Rx tabs insulin glargine 100 unit/mL (3 74 unit (0.74 mL) subcut BID #140 08/18/24 07/26/25 Rx mL) subcutaneous pen (Lantus mL Solostar U-100 Insulin) insulin aspart U-100 100 unit/mL 16 unit (0.16 mL) subcut .before 10/14/24 09/18/25 Rx (3 mL) subcutaneous pen (Novolog each meal #80 mL FlexPen U-100 Insulin aspart) benazepril 10 1 tablet PO DAILY #90 tabs 11/06/24 07/26/25 Rx mg-hydrochlorothiazide 12.5 mg tablet nebivolol 5 mg tablet (Bystolic) 5 mg PO DAILY #90 tabs 01/01/25 07/26/25 Rx ondansetron HCl 4 mg tablet 4 mg PO Q8H PRN nausea and 03/20/25 07/12/25 Rx vomiting #20 tabs albuterol sulfate 90 mcg/actuation See Rx Instructions .Route 03/22/25 07/26/25 Rx aerosol inhaler .COMPLEX #51 grams tirzepatide 5 mg/0.5 mL 5 mg (0.5 mL) subcut WEEKLY #2 mL 03/27/25 07/12/25 Rx subcutaneous pen injector (Mounjaro) blood-glucose transmitter (Dexcom #1 ea 04/02/25 06/18/25 Rx G6 Transmitter device) meloxicam 15 mg tablet See Rx Instructions .Route 05/16/25 07/26/25 Rx .COMPLEX #30 tabs mupirocin 2 % topical ointment 1 applic topical BID #15 grams 05/24/25 07/12/25 Rx (Centany) rosuvastatin 40 mg tablet See Rx Instructions .Route 06/14/25 07/26/25 Rx .COMPLEX #90 tabs pantoprazole 40 mg tablet,delayed 40 mg PO BID #180 tabs 07/04/25 07/26/25 Rx release Patient hx anesthesia problems: none Family hx anesthesia problems: none Results Review: All pre-operative results and documents have been reviewed as part of the pre-operative evaluation. COUNTS INCLUDE 234 BEDS AT THE [facility] Past Medical History Medical History Cough BMI over 35 Cholecystectomy planned Colonoscopy planned Chronic GERD CLIFF (obstructive sleep apnea) H/O supraventricular tachycardia Nausea Bronchitis Hyperlipidemia Hypertension Ulcer Cataracts, both eyes Morbid obesity Depression Type 2 diabetes mellitus with other specified complication (Unknown) Surgical History Surgical History H/O cataract extraction H/O inguinal hernia repair H/O umbilical hernia repair Family History Family History Mother Family history of diabetes mellitus in first degree relative Family history of thyroid disease Hypertension Grandparent Family history of lung cancer Diabetes mellitus Family history of lung disease Family history of heart disease in male family member before age 55 Father Hypertension Alzheimers disease Dementia Sibling No problems noted. Social History Social History Smoking status: Never smoker Second hand tobacco smoke exposure: Yes Alcohol intake: never Substance use: never Substance use type: does not use Lack of Transportation: No Lack of Food: Never True Current Housing: I Have Housing Concerned About Future Housing: No Difficulty Paying Gas/Electric Bills: No Difficulty Paying for Meds: No Currently Unemployed: No Education: High School Diploma/GED Difficulty w/ Childcare or Family Care: No Living arrangements: with family Occupation/Education: occupation Additional occupation/education comments: [employer] Gender identity (if verbalized by the patient): Male Spiritual care concerns: No Anes - Eval Final PreProcedure Day of Procedure 07/26/25 09:41 Patient weight: obese Heart: regular rate and rhythm Lungs: clear to auscultation Airway: Mallampati scale class II Neurological: alert and oriented Last oral intake: >/= 8 hours ASA classification: III Emergent: no Anesthetic plan: proceed Anesthesia type and monitoring: general GIVS and standard monitoring Results Review: All pre-operative results and documents have been reviewed as part of the pre-operative evaluation. Informed Consent: The patient's anesthetic plan and its attendant risks and benefits were discussed with the patient/family/POA. Questions were solicited and answers provided to the satisfaction of the patient/family/POA.
--- NOTE | 2025-07-26 09:59 | P.HP_ITS ---
History of Present Illness History of Present Illness Consent: Risks, benefits, and alternatives have been discussed and questions answered. Patient agrees to proceed with procedure. Chief complaint: Personal history of colon polyps, unspecified Narrative: Herminio Cristobal III is a 64 year old male with colon polyp in 2021 Review of Systems Review of Systems: All systems reviewed & are unremarkable except as noted in HPI and below PMFSH Past Medical History Medical History (Updated 07/26/25 @ 10:02 by Alcides Moss MD) Colon polyp Cough BMI over 35 Cholecystectomy planned Colonoscopy planned Chronic GERD CLIFF (obstructive sleep apnea) H/O supraventricular tachycardia Nausea Bronchitis Hyperlipidemia Hypertension Ulcer Cataracts, both eyes Morbid obesity Depression Type 2 diabetes mellitus with other specified complication (Unknown) Surgical History Surgical History H/O cataract extraction H/O inguinal hernia repair H/O umbilical hernia repair Family History Family History Mother Family history of diabetes mellitus in first degree relative Family history of thyroid disease Hypertension Grandparent Family history of lung cancer Diabetes mellitus Family history of lung disease Family history of heart disease in male family member before age 55 Father Hypertension Alzheimers disease Dementia Sibling No problems noted. Social History Social History Smoking status: Never smoker Second hand tobacco smoke exposure: Yes Alcohol intake: never Substance use: never Substance use type: does not use Lack of Transportation: No Lack of Food: Never True Current Housing: I Have Housing Concerned About Future Housing: No Difficulty Paying Gas/Electric Bills: No Difficulty Paying for Meds: No Currently Unemployed: No Education: High School Diploma/GED Difficulty w/ Childcare or Family Care: No Living arrangements: with family Occupation/Education: occupation Additional occupation/education comments: [employer] Gender identity (if verbalized by the patient): Male Spiritual care concerns: No Meds Home Medications and Allergies Home Medications ?Medication ?Instructions ?Recorded ?Confirmed ?Type aspirin 81 mg tablet,delayed 81 mg PO DAILY 09/08/19 0 07/26/25 History release (Adult Low Dose Aspirin) pen needle, diabetic 32 gauge x #200 ea 05/24/2306/18 Rx 1/4 (BD Ultra-Fine Micro Pen Needle) blood-glucose,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,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 #1 ea 01/14/24 06/18/25 Rx (Dexcom G6 Grey Roll Man) blood-glucose sensor (Dexcom G6 #6 ea 08/18/24 5 Rx Sensor device) dapagliflozin propanediol 10 mg 10 mg PO QAM #90 tabs 08/18/24 07/26/25 Rx tablet (Farxiga) glucagon 1 mg/0.2 mL subcutaneous 1 mg (0.2 mL) subcut ONCE #0.4 mL 08/18/24 07/12/25 Rx auto-injector (Gvoke HypoPen 2-Pack) glucose 4 gram chewable tablet 4 g PO Q15M PRN hypogly cemia #360 08/18/24 07/12/25 Rx tabs insulin glargine 100 unit/mL (3 74 unit (0.74 mL) subc ut BID #140 08/18/24 07/26/25 Rx mL) subcutaneous pen (Lantus mL Solostar U-100 Insulin) insulin aspart U-100 100 unit/mL 16 unit (0.16 mL) sub cut .before 08/21/24 07/26/25 Rx (3 mL) subcutaneous pen (Novolog each meal #80 mL FlexPen U-100 Insulin aspart) benazepril 10 1 tablet PO DAILY #90 tabs 1 07/26/25 Rx mg-hydrochlorothiazide 12.5 mg tablet nebivolol 5 mg tablet (Bystolic) 5 mg PO DAILY #90 tab s 01/01/25 07/26/25 Rx ondansetron HCl 4 mg tablet 4 mg PO Q8H PRN nausea and 03/20/25 07/12/25 Rx vomiting #20 tabs albuterol sulfate 90 mcg/actuation See Rx Instructions .Route 03/22/25 07/26/25 Rx aerosol inhaler .COMPLEX #51 grams tirzepatide 5 mg/0.5 mL 5 mg (0.5 mL) subcut WEEKLY #2 mL 03/27/25 07/12/25 Rx subcutaneous pen injector (Simundebbiero) blood-glucose transmitter (Dexcom #1 ea 04/02/2506/18 Rx G6 Transmitter device) meloxicam 15 mg tablet See Rx Instructions .Route 0 05/16/25 07/26/25 Rx .COMPLEX #30 tabs mupirocin 2 % topical ointment 1 applic topical BID #1 5 grams 05/24/25 07/12/25 Rx (Centany) rosuvastatin 40 mg tablet See Rx Instructions .Route 0 06/14/25 07/26/25 Rx .COMPLEX #90 tabs pantoprazole 40 mg tablet,delayed 40 mg PO BID #180 ta bs 07/04/25 07/26/25 Rx release Allergies Allergy/AdvReac Type Severity Reaction Status Date / Time levofloxacin AdvReac Intermediate Itching Verified 07/12/25 13:29 Vital Signs Vital Signs - 24 hr 07/26/25 09:28 Temperature 97.1 F L Pulse Rate 65 Respiratory Rate 20 Blood Pressure 124/61 Pulse Oximetry 100 Oxygen Delivery Room Air Exam Const: General: comfortable and no acute distress HENMT: Face/Nose/Sinus: Normal nares present Eyes: General: appearance normal, both eyes and all related structures Neck: Neck: no JVD Resp: Auscultation: clear to auscultation bilaterally Cardio: Rate: regular rate Rhythm: regular rhythm GI: Inspection: non-distended GI Palp: Yes Soft to palpation Skin: General skin exam: normal color Neuro: Speech: normal speech Extrem: General: normal to inspection Psych: Mental Status: mental status grossly normal Assessment and Plan Assessment and plan (1) Colon polyp: Code(s): K63.5 - Polyp of colon Status: Acute Assessment and Plan: colonoscopy
--- NOTE | 2025-07-26 10:12 | S_PTH ---
PATIENT: Herminio Cristobal III LOC: [facility]#:[id number] AGE/SX: 64/M ROOM: RE07/26/[address]: Alcides Moss MD : 1960 BED: DIS: 07/26/2025 SPEC #: [id number] RECD: 07/26/25 11:32 STATUS: DAVIE REJannie #: [id number] NITHYA: 07/26/25 10:[address]: Alcides Moss DEPT: [facility] Surgical RECD BY: Bertha Moore ENTERED: 07/26/25 11:33 SP TYPE: Surgical OTHR DR: Reynold Mariano MD Tissues: A - Colon Polypectomy Procedures: Hematoxylin and Eosin Stain Gross and Microscopic Level 4
[2025-07-26 10:13] VITALS: BP 111/58; PULSE 60; RESP 19; O2SAT 95
[2025-07-26 10:23] VITALS: BP 126/63; PULSE 58; RESP 21; O2SAT 98
[2025-07-26 10:33] VITALS: BP 119/65; PULSE 60; RESP 19; O2SAT 98
== END 2025-07-26 10:41 | disposition home or self-care (01) ==
PROVIDERS: PCP Family Medicine; Referring Provider Internal Medicine Gastroenterology; Visit Provider Internal Medicine Gastroenterology
PROC: 0DJD8ZZ Inspection of Lower Intestinal Tract, Via Natural or Artificial Opening Endoscopic (ICD-10-PCS; CPT 45378; principal; 2025-07-26 11:00)
DX: Z12.11 Encounter for screening for malignant neoplasm of colon (principal); D12.0 Benign neoplasm of cecum; K57.30 Diverticulosis of large intestine without perforation or abscess without bleeding; K64.8 Other hemorrhoids; E11.9 Type 2 diabetes mellitus without complications; E66.9 Obesity, unspecified; Z68.35 Body mass index [BMI] 35.0-35.9, adult
CPT/HCPCS: 45385; 82948; 88305; J2003; J2704; J7120